=== PATIENT | male | born 1945 | race Hispanic/Latino ===

== ENCOUNTER 2016-05-04 15:48 | Inpatient (IN) | payer MEDICARE, MEDICAID ==
--- NOTE | 2016-05-04 16:03 | ED PDOC ---
Arrival/HPI - General Time Seen by Provider: 05/04/16 15:52 - History of Present Illness Narrative History of Present Illness (Text): 05/04/16 16:03 Patient is a 70 y/o M with hx of dm, htn, anemia, chf, cva with residual R sided weakness, presenting from [facility]. Patient reports that he is in the ED for bloodwork. Spoke to PMD Dr. Lin and she reports that patient had labwork showing elevated BUN/creatinine and anemia. Unknown baseline but labs from [facility] show hgb:8.3 with bun 49, and creatinine 2.8. Patient has no complaints Family/Social History Family/Social History: No Known Family HX Allergies/Home Meds Allergies/Adverse Reactions: Allergies No Known Allergies Allergy (Verified 05/04/16 16:18) Review of Systems - Review of Systems Systems not reviewed;Unavailable: Other (limited by slurred speech from cva) Eyes: absent: Vision Changes ENT: absent: Hearing Changes Respiratory: absent: SOB, Cough Cardiovascular: absent: Chest Pain, Palpitations Gastrointestinal: absent: Abdominal Pain, Constipation, Diarrhea, Nausea, Vomiting Genitourinary Male: absent: Dysuria Musculoskeletal: absent: Arthralgias Skin: absent: Rash Neurological: absent: Headache, Dizziness Hemo/Lymphatic: absent: Adenopathy Psychiatric: absent: Anxiety Physical Exam Vital Signs Temp Pulse Resp BP Pulse Ox 05/04/16 17:20 97.5 F L 05/04/16 16:18 71 16 133/76 100 05/04/16 16:14 70 18 133/76 100 Temperature: Afebrile Blood Pressure: Normal Pulse: Regular Respiratory Rate: Normal Appearance: Positive for: Well-Appearing, Non-Toxic, Comfortable, Other ( bedbound at baseline) Pain Distress: None Mental Status: Positive for: Alert and Oriented X 3 - Systems Exam Head: Present: Atraumatic, Normocephalic Pupils: Present: PERRL Extroacular Muscles: Present: EOMI Conjunctiva: Present: Normal Mouth: Present: Moist Mucous Membranes Neck: Present: Normal Range of Motion Respiratory/Chest: Present: Clear to Auscultation, Good Air Exchange. No: Respiratory Distress, Accessory Muscle Use Cardiovascular: Present: Regular Rate and Rhythm, Normal S1, S2. No: Murmurs Abdomen: Present: Other. No: Tenderness, Distention, Rebound, Guarding Back: Present: Normal Inspection Upper Extremity: Present: Other (R sided contracture) Lower Extremity: Present: Other (R sided boot and no movement) Neurological: Present: GCS=15, CN II-XII Intact Medical Decision Making ED Course and Treatment: 05/04/16 16:23 Patient sent from [facility] for abnormal labs. No current complaints. Guaiac negative brown stool. EKG shows NSR at 70bpm with normal intervals and no ST changes. At request from PMD Dr. Lin will get repeat labs and reeval 05/04/16 18:19 Labs resulted and show bun/creatinine of 47/3, more consistent with post-renal dysfunction. K:5.5. Treatment ordered. Paged Dr. Lin for admission for worsening renal failure. Patient voided in the ED and will place catheter for post-void residual and will leave in place if significant retention. Will need admission under Dr. Lin for worsening renal function - Lab Interpretations Lab Results: 05/04/16 17:39 05/04/16 17:39 Lab Results 05/04/16 17:39: WBC 7.6, RBC 2.82 L, Hgb 9.0 L, Hct 26.9 L, MCV 95.4, MCH 31.9, MCHC 33.5, RDW 13.1, Plt Count 146, MPV 9.7, Gran % 74.3 H, Lymph % (Auto) 16.2 L, Frio % (Auto) 7.5 H, Eos % (Auto) 1.7, Baso % (Auto) 0.3, Gran # 5.68, Lymph # 1.2, Frio # 0.6, Eos # 0.1, Baso # 0.02, PT 11.1, INR 1.03, APTT 26.4, Sodium 137, Potassium 5.5 H, Chloride 107, Carbon Dioxide 21, Anion Gap 15, BUN 47 H, Creatinine 3.0 H, Est GFR ( Amer) 25, Est GFR (Non-Af Amer) 21, Random Glucose 190 H, Calcium 8.6, Phosphorus 3.9, Magnesium 2.0, Total Bilirubin 0.3, AST 17, ALT 19, Alkaline Phosphatase 71, Total Protein 6.9, Albumin 3.4, Globulin 3.5, Albumin/Globulin Ratio 1.0 L - Medication Orders Current Medication Orders: Discontinued Medications Calcium Gluconate (Calcium Gluconate Iv) 1,000 mg IVP ONCE ONE Stop: 05/04/16 18:17 Dextrose (Dextrose 50% Inj) 50 ml IVP STAT STA Stop: 05/04/16 18:17 Insulin Human Regular (Humulin R) 8 units IV STAT STA Stop: 05/04/16 18:17 Sodium Bicarbonate (Sodium Bicarbonate (8.4%) 50 Meq Syringe) 50 meq IVP ONCE ONE Stop: 05/04/16 18:18 Disposition/Present on Arrival - Present on Arrival Any Indicators Present on Arrival: No - Disposition Have Diagnosis and Disposition been Completed?: Yes Diagnosis: Renal failure Disposition: HOSPITALIZED Disposition Time: 19:14 Patient Plan: Admission Condition: FAIR
[2016-05-04 16:23] VITALS: BMI 25.0
[2016-05-04 17:47] LABS: ADD MANUAL DIFF? NO
[2016-05-04 17:53] LABS: BASO # 0.02 K/mm3 (0.0-2.0); BASO % 0.3 % (0.0-3.0); EOS # 0.1 (0.0-0.7); EOS % 1.7 % (1.5-5.0); GRAN # 5.68 (1.4-6.5); GRAN % 74.3 % (50.0-68.0); HEMATOCRIT 26.9 % (42.0-52.0); LYMPH # 1.2 (1.2-3.4); LYMPH % 16.2 % (22.0-35.0); MEAN CELL VOLUME 95.4 fL (80.0-105.0); MEAN CORPUSCULAR HEMOGLOBIN 31.9 pg (25.0-35.0); MEAN CORPUSCULAR HGB CONC 33.5 g/dl (31.0-37.0); MEAN PLATELET VOLUME 9.7 fl (7.0-11.0); MONO # 0.6 (0.1-0.6); MONO % 7.5 % (1.0-6.0); PLATELET COUNT 146 10^3/uL (120.0-450.0); RED CELL DISTRIBUTION WIDTH 13.1 % (11.5-14.5); WHITE BLOOD COUNT 7.6 10^3/ul (4.5-11.0)
[2016-05-04 18:02] LABS: BILIRUBIN,TOTAL 0.3 mg/dL (0.2-1.3); CALCIUM 8.6 mg/dL (8.4-10.5); PHOSPHOROUS 3.9 mg/dL (2.5-4.5); POTASSIUM 5.5 mmol/L (3.6-5.0); TOTAL PROTEIN 6.9 g/dL (5.8-8.3)
[2016-05-04 18:09] LABS: INR 1.03 (0.93-1.08); PARTIAL THROMBOPLASTIN TIME 26.4 Seconds (23.7-30.8)
[2016-05-04] MEDS ORDERED: Dextrose 50% SYRINGE Inj (50 ml) IVP STA (18:16)
[2016-05-04] MEDS ORDERED: Insulin Regular 1 UNITS/0.01 ML ML IV STA (18:16)
[2016-05-04] MEDS ORDERED: Sodium Bicarbonate (8.4%) 50 Meq Syringe IVP ONE (18:17)
[2016-05-04 19:14] LABS: URINE BILIRUBIN NEGATIVE (NEGATIVE); URINE BLOOD MODERATE (NEGATIVE); URINE GLUCOSE (UA) NEGATIVE (NEGATIVE); URINE KETONE NEGATIVE (NEGATIVE); URINE LEUKOCYTE ESTERASE LARGE Leu/uL (NEGATIVE); URINE PROTEIN 30 mg/dL (<30 mg/dL); URINE UROBILINOGEN 0.2 E.U./dL (<1 E.U./dL)
[2016-05-04 19:15] LABS: URINE APPEARANCE CLOUDY (CLEAR); URINE COLOR LIGHT YELLOW (YELLOW)
[2016-05-04 19:26] LABS: URINE RBC TNTC /hpf (0-2); URINE WBC TNTC /hpf (0-6)
[2016-05-04 19:27] LABS: URINE BACTERIA MOD (NEG)
[2016-05-04 21:19] LABS: IRON 89 ug/dL (45-180)
[2016-05-04] MEDS: Insulin Reg-LOW-Coverage SC SCH (23:06)
[2016-05-04] MEDS: Non Formulary Medication (Rosuvastatin Calcium [Crestor] 40 MG) PO SCH (23:17)
[2016-05-05] MEDS: Albuterol-Ipratrop 3 mg / 0.5 (3 ml) UD IH SCH ×4 (01:46→20:04)
[2016-05-05 06:21] LABS: HEMATOCRIT 27.7 % (42.0-52.0); MEAN CELL VOLUME 96.9 fL (80.0-105.0); MEAN CORPUSCULAR HEMOGLOBIN 31.5 pg (25.0-35.0); MEAN CORPUSCULAR HGB CONC 32.5 g/dl (31.0-37.0); MEAN PLATELET VOLUME 10.1 fl (7.0-11.0); RED CELL DISTRIBUTION WIDTH 13.4 % (11.5-14.5); WHITE BLOOD COUNT 8.9 10^3/ul (4.5-11.0)
[2016-05-05 06:38] LABS: CALCIUM 9.1 mg/dL (8.4-10.5); POTASSIUM 5.1 mmol/L (3.6-5.0)
[2016-05-05] MEDS ORDERED: Sod Polystyrene Sulf 15 gm/60 ml Oral Susp PO ONE (08:45)
[2016-05-05] MEDS ORDERED: Sodium Chloride 0.45% 1,000 ML IV SCH (08:45)
[2016-05-05] MEDS: Insulin Reg-LOW-Coverage SC SCH ×4 (09:32→21:54)
[2016-05-05] MEDS: Pantoprazole 40 mg EC Tab PO SCH (09:32)
[2016-05-05] MEDS ORDERED: Non Formulary Medication (Esomeprazole Magnesium [Nexium] 20 MG) PO SCH (10:00)
[2016-05-05] MEDS ORDERED: Cyproheptadine 2 mg Tab PO SCH (10:00)
--- NOTE | 2016-05-05 10:10 | CARD ---
APPROVED REPORT EKG Measurement Heart [id number] <Conclusion> Normal sinus rhythm Normal ECG
[2016-05-05 10:38] LABS: T4 7.6 ug/dL (5.5-11.0)
[2016-05-05] MEDS: Sodium Chloride 0.45% 1,000 ML IV SCH ×2 (10:42→20:59)
[2016-05-05 10:52] LABS: PROSTATE SPECIFIC ANTIGEN 8.2 ng/mL (0.00-2.5)
--- NOTE | 2016-05-05 12:33 | US ---
PROCEDURE: Ultrasound of the Kidneys HISTORY: azotemia COMPARISON: None available. TECHNIQUE: Sonogram of the kidneys. FINDINGS: RIGHT KIDNEY: Measures: 10.5 cm. Normal in size, contour and echogenicity. There is moderate hydronephrosis. No stone, solid or cystic mass visualized. LEFT KIDNEY: Measures: 9.6 cm. Normal in size, contour and echogenicity. There are discrete areas of increased echogenicity with after shadowing. No solid mass lesion or hydronephrosis visualized. OTHER FINDINGS: None. IMPRESSION: 1. Moderate right hydronephrosis. 2. Question of left nephrolithiasis.
[2016-05-05 13:04] LABS: FOLATE 9.2 ng/mL
--- NOTE | 2016-05-05 13:18 | CON ---
DATE: 05/05/2016 HISTORY OF PRESENT ILLNESS: This 70-year-old male was examined at his bedside and his case was revie wed with nurse practitioner, Mandy FREDERICK. The patient was sent from the [facility] e for further evaluation of elevated BUN and creatinine and potassium as well as advanced anemia unde r the care of his PMD, Dr. Salima Lin. I am asked to evaluate the patient regarding the above. On questioning the patient at the bedside, he is an extremely poor historian. He has the residual fi ndings of an old left stroke with right arm contracture and right leg weakness. When asking the rai ent about any knowledge of renal failure duration or any of his comorbidities, he cannot offer much i nsight. He states that in his opinion he had his stroke over 20 years ago. He has been a resident o f the [facility] for over 5 years and he states he has had diabetes mellitus for greater minesh n 15 years. REVIEW OF SYSTEMS: When I questioned him on review of systems he was a poor historian. FAMILY HISTORY: Noncontributory. ALLERGIES: He denies any allergies to medication. CUSTODIAL MEDICATIONS: Included Crestor, Compazine, potassium, metoprolol tartrate, Nexium, Peria ctin, and according to the [facility] staff, Victoza. When I questioned the patient regarding his medication he was unaware of any names or frequencies. SOCIAL HISTORY: He stated he was a former smoker, is a current nonsmoker, nondrinker, non-IV drug mi suser. He could not remember if he has had any surgery in the past. FAMILY HISTORY: Not available. 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 EYES: Denied change in visual acuity. EARS: Denied hearing loss. THROAT: Denied swallowing difficulty. NECK: Denied any stiffness. CARDIAC: There is a report of hypertension, congestive heart failure, hyperlipidemia and old stroke as well as history of atherosclerotic heart disease and angina in his past. PULMONARY: Denied hemoptysis. GASTROINTESTINAL: Admitted to GERD. GENITOURINARY: He has an elevated PSA and follows with Dr. Haresh Waters, urology. Also has no kn owledge of renal failure on questioning the patient. ENDOCRINE: Has hyperlipidemia and longstanding diabetes mellitus. VASCULAR: Denied claudication. PSYCHOLOGICAL: It is reported he has bipolar depression. NEUROLOGICAL: Old stroke with dense right hemiplegia. SKIN: No knowledge of ulcers or skin breakdown. 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 PHYSICAL EXAMINATION: VITAL SIGNS: Temperature 98.4, respirations 20, pulse 75, blood pressure 97/52 for which the patient is receiving IV fluids. Monitor shows normal sinus rhythm. Pulse ox was 99% on room air. HEENT: Normocephalic, atraumatic. Eyes show no icterus. Ears clear. Throat not injected. NECK: Supple. HEART: Regular S1, S2. No pathological rubs, murmurs, or gallops. LUNGS: Clear. ABDOMEN: Soft, nontender, no palpable organomegaly, no rebound, no guarding. EXTREMITIES: No clubbing, no cyanosis, no edema. SKIN: Has good turgor. VASCULAR: Legs warm to touch. PSYCHOLOGICAL: Alert, but confused. NEUROLOGIC: Right arm contracted. Right leg marked weakness. LABORATORY DATA: White count 8900, hemoglobin 9, hematocrit 27.7, platelets 154,000. PT/INR 1.03. PTT 26.4. Sodium 141, K 5.1, chloride 108, bicarbonate 23, BUN 46, creatinine 2.9, random blood sug ar was 336, hemoglobin A1c 6.4. PSA is elevated at 8.2. T4 normal at 7.6. TSH elevated 6.06. Urin alysis showed moderate bacteria and positive RBCs and WBCs. EKG showed normal sinus rhythm with nons pecific ST-T wave changes. IMPRESSION: A 70-year-old male with old stroke with right arm contracture, right leg weakness, comor bidities of hyperlipidemia, congestive heart failure, atherosclerotic heart disease, chronic hyperten tabitha, longstanding diabetes mellitus, gastroesophageal reflux disease, elevated PSA, bipolar depressi on. PLAN: At present is to obtain urological consultation regarding microhematuria, elevated PSA. The p atient in the Emergency Room, was noted to be hyperkalemic and was treated with Kayexalate, IV calciu m, IV insulin and the patient does not appear to be a good candidate for RODY inhibitors given this fi nding. He was also given sodium bicarbonate in the ER. At present, the patient is receiving 0.45 sa line at 100 mL per hour because of his recent hypotension and his metoprolol tartrate will be discont inued in the setting of hypotension. I have ordered a renal ultrasound and serologies including C3, C4 CRP, hepatitis C. He is ordered to have a 24-hour urine for creatinine clearance, 24-hour urine f or protein. He will also have an SAMMI, ANCA, ASO antibody titer, cryoglobulins, DNA double stranded antibodies, anti-GBM antibodies and a serum and urine immunoelectrophoresis. Urine culture has been sent as well. RPR is pending. The patient will need to be treated supportively. The patient would best be served with insulin for his diabetic management including Levemir and insulin coverage a.c. m eals, bedtime. I would avoid the use of any oral hypoglycemics or noninsulin agents in the setting o f chronic renal failure stage IV, and patient's overall prognosis remains poor, but stable at present . Once the patient's creatinine clearance reaches approximately 15%, he may need to be considered fo r AV fistula or graft for chronic renal dialysis, if this is his desire. His overall prognosis is po or, but stable at present. This case was reviewed in detail with the patient at his bedside and his case investigator and nurse practitioner. Cindy Be MD cc: [id number] TT: 05/05/2016 13:17:20 Confirmation # [id number] Dictation # [id number] smith
--- NOTE | 2016-05-05 19:24 | CON ---
DATE: 05/05/2016 REFERRING PHYSICIAN: Dr. Lin. REASON FOR CONSULT: History of stroke, snoring, daytime sleepy and tired, admitted with renal failur e. HISTORY OF PRESENT ILLNESS: This is a 70-year-old gentleman with past medical history significant fo r stroke, diabetes, hypertension, usually poor p.o. intake, brought in from long term because of a bnormal labs and found to have acute kidney disease. He does know about snoring but daytime sleepy a nd tired. There is no nausea, no vomiting, no diarrhea, no leg pain or leg swelling. PAST MEDICAL HISTORY: Diabetes, hypertension, history of stroke, oropharyngeal dysphagia, on modifie d diet. ALLERGIES: None known. SOCIAL HISTORY: [facility] resident. No history of smoking or alcohol abuse reported. FAMILY HISTORY: No significant cardiopulmonary disease reported. MEDICATIONS: At present, he is on DuoNeb q. 6 hours, heparin 5000 units subQ q. 12 hours, insulin coverage, Periactin 4 mg daily. Protonix 40 mg daily, Crestor 40 mg daily, IV fluid half normal sali ne 100 mL per hour, Tylenol p.r.n. basis. REVIEW OF SYSTEMS: No headache, no rhinitis. Admits to be sleepy and tired, multiple night awakenin gs. There is no cough, no sputum production, no nausea, no vomiting, no diarrhea, no leg pain or leg swelling. PHYSICAL EXAMINATION: GENERAL: Lying in the bed in no acute distress. VITAL SIGNS: Temp is 98, heart rate is 71, respiratory rate is 20, blood pressure 102/62, pulse ox 9 9% on room air. HEENT: Dry mucous membranes. Crowded airway. Mallampati score is 4. NECK: Supple. No JVD. LUNGS: Has a fair airflow with scattered rhonchi, poor effort. HEART: S1, S2. ABDOMEN: Soft, nontender. No organomegaly. EXTREMITIES: There is no edema. NEUROLOGIC: Awake, alert, and follows simple commands. LABORATORY DATA: Shows hemoglobin 9.0, hematocrit 27.7, WBC 8.9, platelet is 154. INR 1.03, PTT is 26. PSA 8.2. Ferritin 337. Sodium 141, potassium 5.1, chloride 108, bicarbonate 23, BUN 46, creati nine is 2.9, glucose 101, calcium is 9.1, iron is 89. Urine culture has gram-positive cocci. IMPRESSION AND PLAN: Acute renal failure, history of stroke, hypertension, oropharyngeal dysphagia, may have a sleep apnea syndrome, has memory loss. Agree with Dr. Lin and Dr. Talbot with the pre sent management. Will keep head elevated at 45 degree. Bronchodilator, aspiration precautions, spee ch therapy evaluation to adjust p.o. diet. He will need attended sleep study as outpatient. We will place him on BiPAP ____ oxygen while sleeping in the hospital. Follow up labs in the morning. The patient is already on gastric and deep venous thrombosis prophylaxis. Thank you and will follo w with you. Adrienne Vallejo MD cc: [id number] TT: 05/05/2016 19:23:49 Confirmation # [id number] Dictation # [id number] smith
[2016-05-05] MEDS: Non Formulary Medication (Rosuvastatin Calcium [Crestor] 40 MG) PO SCH (21:31)
[2016-05-06] MEDS: Albuterol-Ipratrop 3 mg / 0.5 (3 ml) UD IH SCH ×4 (01:15→21:05)
--- NOTE | 2016-05-06 04:36 | HP ---
CHIEF COMPLAINT: Abnormal labs. HISTORY OF PRESENT ILLNESS: The patient is a 70-year-old male, resident of [facility] with past medical history of hypertension, congestive heart failure, CVA with residual right-sided partial weak ness, came from Emergency Room because of abnormal blood workup, was feeling a little bit weak, tired , lethargic, not on his baseline mental level. Hemoglobin was 8.3, BUN 49, creatinine 2.8. We admit alexis the patient, did labs. The patient has history of COPD, obesity. FAMILY HISTORY: Father and mother noncontributory. ALLERGIES: The patient is not allergic with any medications. PAST MEDICAL HISTORY: As above, diabetes mellitus, hypertension, anemia, congestive heart failure, C VA, obesity. MEDICATIONS: Reviewed by me. REVIEW OF SYSTEMS: The patient is seen and examined on the bedside. Looks comfortable. No nausea, vomiting, or diarrhea. No hematuria or hematochezia. No swelling of the leg. No chest pain, no pal pitation, no headache, no dizziness. PHYSICAL EXAMINATION: VITAL SIGNS: Temperature 97.6, pulse is 71, blood pressure 102/62, respiratory rate 18. HEENT: Head normocephalic, atraumatic. Eyes: PERRLA. Extraocular muscles intact. Conjunctivae pi nk. Eyelids unremarkable. Nose patent. NECK: Supple. No carotid bruit, JVD or thyromegaly. CHEST: Bilaterally symmetrical. HEART: S1, S2 positive. LUNGS: Clear to auscultation. ABDOMEN: Soft. Bowel sounds present. No organomegaly. EXTREMITIES: Trace edema, no cyanosis. NEUROLOGIC: The patient is awake and alert. LABORATORY DATA: White blood cells 8.9, hemoglobin 9.0, hematocrit 27.7, platelets 154. Glucose 156 , 184, 336, 127. ASSESSMENT AND PLAN: The patient is a 70-year-old male with anemia, diabetes mellitus, hyperkalemia, renal insufficiency, increased PSA, hypothyroidism, chronic obstructive pulmonary disease, obstructi ve sleep apnea syndrome. The patient is seen by Dr. Cindy Be, personnel scheduler, and manager produce, Dr. Vallejo, history of hypertension, history of stroke, oropharyngeal dysphagia on modified diet, ac [place] renal failure on chronic, has memory problem. Keep head elevated. Bronchodilators, aspiration p recautions and speech therapy. We will give oxygen, follow up labs. We will call urologist because of hematuria and increased PSA, right arm contractures, right leg weakness, atherosclerotic heart dis ease, gastroesophageal reflux disease, bipolar, depression. Reviewed Dr. Be's notes, appreciated. We will follow up. Salima Lin MD cc: [id number] TT: 05/06/2016 04:35:07 hn
[2016-05-06] MEDS: Sodium Chloride 0.45% 1,000 ML IV SCH (06:05)
[2016-05-06] MEDS: Insulin Reg-LOW-Coverage SC SCH ×4 (08:00→22:53)
[2016-05-06 09:32] LABS: ALB/GLOB RATIO 0.8 (1.1-1.8); ALKALINE PHOSPHATASE 59 U/L (38-133); ALT/SGPT 15 U/L (7-56); AST/SGOT 13 U/L (15-59); BILIRUBIN,TOTAL 0.3 mg/dL (0.2-1.3); BLOOD UREA NITROGEN 44 mg/dL (7-21); CALCIUM 7.7 mg/dL (8.4-10.5); CARBON DIOXIDE 19 mmol/L (21-33); CHLORIDE 104 mmol/L (98-107); GFR AFRICAN-AMERICAN 27; GLUCOSE,RANDOM 96 mg/dL (70-110); POTASSIUM 3.6 mmol/L (3.6-5.0); SODIUM 130 mmol/L (132-148); TOTAL PROTEIN 5.8 g/dL (5.8-8.3)
[2016-05-06] MEDS: Pantoprazole 40 mg EC Tab PO SCH (09:36)
[2016-05-06] MEDS: Sodium Chloride 0.9% 1,000 ML IV SCH (11:30)
--- NOTE | 2016-05-06 14:10 | PN ---
DATE: 05/06/2016 This 70-year-old male was examined at his bedside and his case was reviewed with his nurse, Lilian Mccray RN. The patient remains hospitalized in the setting of acute on chronic renal failure and most notably his renal ultrasound that was completed yesterday shows moderate hydronephrosis of his right kidney and questionable left nephrolithiasis. No solid mass lesions were visualized. I have asked the nurse to notify Dr. Haresh Waters from urology of this finding and also his microhematuria on urinalysis and an elevated PSA value of 8.2. The patient is lying in bed. He is alert. He is a very poor historian and he denies any chest pain, shortness of breath or diarrhea at present. His appetite appears good and he has eaten all the food on his plate. His ekg monitor tech shows a normal sinus rhythm with no reports of cardiac arrhythmia. PHYSICAL EXAMINATION: VITAL SIGNS: Temperature 97.7, respirations 20, pulse 78, blood pressure 109/ 61 with a pulse ox of 100%. I's and O's 2390 mL in, 800 mL out for a positive fluid balance of 1590. HEAD: Normocephalic, atraumatic. EYES: Show no icterus. EARS: Clear. THROAT: Noninjected. NECK: Supple. HEART: Regular S1, S2. LUNGS: Clear to auscultation. ABDOMEN: Obese, nontender, without palpable organomegaly, no rebound, no guarding. EXTREMITIES: No clubbing, no cyanosis, no edema. SKIN: Without rash. NEUROLOGICAL: Right arm contracture, right leg weakness. VASCULAR: Legs warm to touch. PSYCHOLOGICAL: Alert. Poor mentation, poor recall. LABORATORY DATA: Sodium 130, K 3.6, chloride 104, bicarb 19, BUN 44, creatinine 2.8, random blood sugar 243, bilirubin 0.3, AST 13, ALT 15, alk jori 59. PSA 8.2. T4 7.6, normal. Iron 89, TIBC 228, percent saturation 39, ferritin 337. Urinalysis 30 mg/dL of protein, positive bacteria. Urine culture , beta hemolytic strep group B. IMPRESSION: A 70-year-old male with acute on chronic renal failure, now with stage IV chronic renal failure with anemia of chronic disease, history of old stroke, right hemiplegia, right arm contracture, chronic hypertension, chronic obstructive pulmonary disease, atherosclerotic heart disease, hyperlipidemia, recent hypotension, elevated PSA, insulin-dependent diabetes mellitus, renal ultrasound findings as listed above and recent hyperkalemia. PLAN: At present is to continue medication including Crestor, DuoNeb nebulizers , subQ heparin, insulin coverage, Protonix. IV fluids have been adjusted to 0.9 saline at 70 mL per hour given his recent hyponatremia. He continues on BiPAP at bedtime, renal diabetic diet. I's and O's. Egan catheter. I have asked the nurse to call Dr. Haresh Waters for further instructions regarding his abnormalities including right hydronephrosis, microhematuria and elevated PSA. Additional serologies including complement, CRP hepatitis C, 24-hour urine for creatinine clearance and protein as well as ANCA, ASO, DNA, anti-GBM, serum and urine immunofixation, and SAMMI and cryoglobulins are all pending. The patient will have repeat electrolytes in the morning and ultimate plan is for him to return to the [facility] for his penitentiary care. All of the above was reviewed with the patient and his nurse at his bedside. Overall prognosis is poor, but stable at present. The patient is awaiting an infectious disease consultation with Dr. Jb Sheldon from infectious disease regarding his urine C and S findings. Cindy Be MD cc: [id number] TT: 05/06/2016 14:10:09 Confirmation # [id number] Dictation # [id number] MTDD
--- NOTE | 2016-05-06 17:32 | CP.PCM.CON ---
History of Present Illness - History of Present Illness History of Present Illness: Infectious Disease Consultation: May 06, 2016 70 yo male brought in from [facility] ) for elevated potassium, creatinine, and anemia. The patient is awake and alert. In addition, the patient has had large fluctuations in his weight. Currently 160 lbs and was as high as 182 lbs in the nursing facility as of February 2016. The patient makes no significant complaints. I do not have baseline laboratory values on the patient from a more recent time. In August 2014 , the patient best creatinine was 1.9 in [facility] but quickly gillian back to a creatinine of 3-4 shortly afterwards. He was placed on hospice at the time. I believe that the renal insufficiency is chronic. PMHx: CAD, PVD, hypercholesterolemia, GERDs, obesity, DM , recent large weight loss episodes, Gout, Bipolar Disorder, Iron Deficiency Anemia PSHx: CABG 2 vessels, angioplasty Allergies: Chicken, IV Dye, Iodine, Milk, seafood, shellfish Social Hx: No EtOH or illicit drugs. Former tobacco use stopped 30 years ago Active Medications Acetaminophen (Tylenol 325mg Tab) 650 mg PO Q4 [facility] Last Admin: 05/06/16 11:37 Dose: Not Given Albuterol/Ipratropium (Duoneb 3 Mg/0.5 Mg (3 Ml) Ud) 3 ml IH [id number] [facility] Last Admin: 05/06/16 13:07 Dose: 3 ml Cyproheptadine HCl (Periactin) 4 mg PO DAILY [facility] Last Admin: 05/06/16 09:35 Dose: 4 mg Heparin Sodium (Porcine) (Heparin) 5,000 units SC Q12 [facility] PRN Reason: Protocol Last Admin: 05/06/16 09:35 Dose: 5,000 units Sodium Chloride (Sodium Chloride 0.9%) 1,000 mls @ 70 mls/hr IV .[id number] [facility] Last Admin: 05/06/16 11:30 Dose: 70 mls/hr Insulin Human Regular (Humulin R Low) 0 units SC ACHS [facility] PRN Reason: Protocol Last Admin: 05/06/16 11:36 Dose: 2 units Non-Formulary Medication (Rosuvastatin Calcium [Crestor]) 40 mg PO HS [facility] Last Admin: 05/05/16 21:31 Dose: Not Given Pantoprazole Sodium (Protonix Ec Tab) 40 mg PO ACB [facility] Last Admin: 05/06/16 09:36 Dose: 40 mg Family Hx: DM and CAD in father - at 54 yo CAD in mother - at 62 yo ROS: No fevers, chills, nausea, vomiting, diarrhea, headaches, dizziness, chest pain , abdominal pain, melena, hematuria, hematemesis, hematochezia, depression, anxiety, cough, SOB Past Patient History - Past Social History Smoking Status: Never Smoked - CARDIAC Hx Angina: Yes Hx Congestive Heart Failure: Yes - NEUROLOGICAL HX Cerebrovascular Accident: Yes - RENAL Hx Renal Failure: Yes - ENDOCRINE/METABOLIC Hx Diabetes Mellitus Type 2: Yes - HEMATOLOGICAL/ONCOLOGICAL Hx Anemia: Yes - MUSCULOSKELETAL/RHEUMATOLOGICAL Hx Falls: Yes - GASTROINTESTINAL Hx Gastroesophageal Reflux: Yes - PSYCHIATRIC Hx Bipolar Disorder: Yes Hx Depression: Yes - SURGICAL HISTORY Hx Surgeries: No - ANESTHESIA Hx Anesthesia: No Meds Allergies/Adverse Reactions: Allergies Allergy/AdvReac Type Severity Reaction Status Date / Time milk Allergy VOMITING Verified 05/04/16 20:19 Poultry Allergy VOMITING Verified 05/04/16 20:19 shellfish derived Allergy VOMITING Verified 05/04/16 20:19 - Medications Medications: Current Medications Acetaminophen (Tylenol 325mg Tab) 650 mg PO Q4 [facility] Last Admin: 05/06/16 11:37 Dose: Not Given Albuterol/Ipratropium (Duoneb 3 Mg/0.5 Mg (3 Ml) Ud) 3 ml IH [id number] [facility] Last Admin: 05/06/16 13:07 Dose: 3 ml Cyproheptadine HCl (Periactin) 4 mg PO DAILY [facility] Last Admin: 05/06/16 09:35 Dose: 4 mg Heparin Sodium (Porcine) (Heparin) 5,000 units SC Q12 [facility] PRN Reason: Protocol Last Admin: 05/06/16 09:35 Dose: 5,000 units Sodium Chloride (Sodium Chloride 0.9%) 1,000 mls @ 70 mls/hr IV .[id number] [facility] Last Admin: 05/06/16 11:30 Dose: 70 mls/hr Insulin Human Regular (Humulin R Low) 0 units SC ACHS [facility] PRN Reason: Protocol Last Admin: 05/06/16 11:36 Dose: 2 units Non-Formulary Medication (Rosuvastatin Calcium [Crestor]) 40 mg PO HS [facility] Last Admin: 05/05/16 21:31 Dose: Not Given Pantoprazole Sodium (Protonix Ec Tab) 40 mg PO ACB [facility] Last Admin: 05/06/16 09:36 Dose: 40 mg Physical Exam - Constitutional Appears: Non-toxic, No Acute Distress, Chronically Ill - Head Exam Head Exam: ATRAUMATIC, NORMOCEPHALIC - Eye Exam Eye Exam: EOMI, PERRL Pupil Exam: NORMAL ACCOMODATION, PERRL - ENT Exam ENT Exam: Mucous Membranes Moist, Normal External Ear Exam, TM's Normal Bilaterally - Neck Exam Neck exam: Positive for: Full Rom, Normal Inspection - Respiratory Exam Respiratory Exam: Clear to Auscultation Bilateral, NORMAL BREATHING PATTERN. absent: Rales, Rhonchi, Wheezes - Cardiovascular Exam Cardiovascular Exam: REGULAR RHYTHM, RRR, +S1, +S2 - GI/Abdominal Exam GI & Abdominal Exam: Normal Bowel Sounds, Soft. absent: Distended, Tenderness - Extremities Exam Extremities exam: Positive for: full ROM, normal inspection - Neurological Exam Neurological exam: Alert, CN II-XII Intact, Oriented x3 - Psychiatric Exam Psychiatric exam: Normal Affect, Normal Mood - Skin Skin Exam: Intact, Normal Color Results - Vital Signs Recent Vital Signs: Last Vital Signs Temp 97.7 F 05/06/16 11:56 Pulse 76 05/06/16 14:00 Resp 20 05/06/16 11:56 BP 109/61 05/06/16 11:56 Pulse Ox 100 05/06/16 06:00 - Labs Result Diagrams: 05/05/16 05:00 05/06/16 08:00 Labs: Laboratory Results - last 24 hr 05/05/16 05/05/16 05/06/16 07:00 21:35 07:18 Sodium Potassium Chloride Carbon Dioxide Anion Gap BUN Creatinine Est GFR ( Amer) Est GFR (Non-Af Amer) POC Glucose (mg/dL) 166 H 147 H Random Glucose Calcium Ferritin 337.0 Total Bilirubin AST ALT Alkaline Phosphatase Total Protein Albumin Globulin Albumin/Globulin Ratio RPR 05/06/16 05/06/16 05/06/16 08:00 09:30 11:22 Sodium 130 L Potassium 3.6 Chloride 104 Carbon Dioxide 19 L Anion Gap 11 BUN 44 H Creatinine 2.8 H Est GFR ( Amer) 27 Est GFR (Non-Af Amer) 23 POC Glucose (mg/dL) 243 H Random Glucose 96 Calcium 7.7 L Ferritin Total Bilirubin 0.3 AST 13 L ALT 15 Alkaline Phosphatase 59 Total Protein 5.8 Albumin 2.6 L Globulin 3.1 Albumin/Globulin Ratio 0.8 L RPR Nonreactive 05/06/16 16:27 Sodium Potassium Chloride Carbon Dioxide Anion Gap BUN Creatinine Est GFR ( Amer) Est GFR (Non-Af Amer) POC Glucose (mg/dL) 189 H Random Glucose Calcium Ferritin Total Bilirubin AST ALT Alkaline Phosphatase Total Protein Albumin Globulin Albumin/Globulin Ratio RPR Assessment & Plan - Assessment and Plan (Free Text) Assessment: 70 yo male with worsening renal failure unknown baseline. The patient with signs of a potential UTI based on urinalysis. The patient with likely history of chronic renal failure. Will start Rocephin for now. Awaiting cultures to return. Supportive care. Renal workup in progress. May need malignancy workup given the large fluctuations in patient's weight over the past 3 months (possible loss of 22 + lbs in this time). Thank you for allowing me to participate in the care of this patient, we will follow with you.
[2016-05-06] MEDS: cefTRIAXone 1 gm 100 ML IVPB SCH (17:59)
--- NOTE | 2016-05-06 19:18 | PN ---
DATE: 05/06/2016 REFERRING PHYSICIAN: Dr. Lin. SUBJECTIVELY: The patient is lying in the bed, head at 45 degrees. Sleepy, arousable. Night was un remarkable. Tolerated CPAP well. No cough, no sputum production, no nausea, no vomiting, diarrhea, leg pain or leg swelling. OBJECTIVELY: No acute distress. Temp is 98, heart rate is 73, respiratory rate is 20, blood pressure 126/69, pulse ox 100% on BiPAP. HENT: Small oral cavity. Crowded airway. NECK: Supple. No JVD. LUNGS: Has a fair airflow with few rhonchi. HEART: S1 and S2. ABDOMEN: Soft, nontender. No organomegaly. EXTREMITIES: There is no edema. NEUROLOGICALLY: Sleepy, arousable. Follows simple commands. MEDICATIONS: He is on DuoNeb q. 6 hours, heparin 5000 units subQ q. 12, Levaquin, insulin coverage, Periactin 4 mg daily. Protonix 40 mg daily, Rocephin 1 g daily, Crestor 40 mg at bedtime, IV fluid n ormal saline 75 mL/hour, Tylenol p.r.n. basis. LABORATORY DATA: Shows sodium 130, potassium 3.6, chloride 104, bicarbonate 19, BUN 44, creatinine 2 .8, glucose 96, calcium 7.7. AST 13, ALT 15, alk phos is 59. C-reactive protein is over 15, albumin is 2.6. Urine culture has beta hemolytic strep B. IMPRESSION AND PLAN: Acute renal failure, history of stroke, hypertension, oropharyngeal dysphagia o n modified diet, with sleep apnea syndrome. Will continue bronchodilator. Keep head at 45 degrees. Continue BiPAP while sleeping, IV fluids, as piration precaution. Gastric prophylaxis. DVT prophylaxis. Follow up electrolytes. Adrienne Vallejo MD cc: [id number] TT: 05/06/2016 19:17:51 Confirmation # [id number] Dictation # [id number]
--- NOTE | 2016-05-06 22:10 | PN ---
DATE: 05/06/2016 SUBJECTIVE: The patient is seen and examined on the bedside. Looks comfortable. No big change in the status. No fever, no chills. No nausea, vomiting, or diarrhea. No hematuria or hematochezia. No swelling of the leg. No chest pain, palpitation, headache or dizziness. PHYSICAL EXAMINATION: VITAL SIGNS: Temperature 97.8, pulse 73, blood pressure 120/80 , respiratory rate 20. HEENT: Head normocephalic, atraumatic. Eyes: PERRLA. Extraocular muscles are intact. Conjunctivae are clear. Nose patent. Mucous membranes moist. NECK: Supple. No carotid bruit, JVD or thyromegaly. CHEST: Bilaterally symmetrical. HEART: S1, S2 positive. LUNGS: Clear to auscultation. ABDOMEN: Soft. Bowel sounds present. No organomegaly. EXTREMITIES: No edema, no cyanosis. NEUROLOGIC: The patient is awake, alert, moving all 4 extremities. No focal deficit. MEDICATIONS: Reviewed by me. LABORATORY DATA: White blood cells 8.9, hemoglobin noted , hematocrit 27.7, platelets 154. Sodium 130, potassium 3.6, BUN 24, creatinine 2.8, glucose 189, calcium 7.7. ASSESSMENT AND PLAN: The patient is a 70-year-old male with anemia, hyponatremia, renal insufficiency, hyperglycemia, hypocalcemia, proteinuria, hematuria with leukocytosis. The patient is seen by Dr. Sheldon, infectious disease , has history of coronary artery disease, peripheral vascular disease, hypercholesterolemia, gastroesophageal reflux disease, obesity, diabetes mellitus, recent large weight loss, episode of gout, bipolar disorder, iron deficiency anemia. The patient has renal failure, unknown baseline. The patient with signs of potential urinary tract infection based on urinalysis, getting Rocephin. Waiting for culture results, supportive care. Gastrointestinal and deep venous thrombosis prophylaxis. Repeat labs. The patient is seen by Dr. Sheldon and Dr. Be. Salima Lin MD cc: [id number] TT: 05/06/2016 22:10:14 Confirmation # [id number] Dictation # [id number] MTDD
[2016-05-06] MEDS: Non Formulary Medication (Rosuvastatin Calcium [Crestor] 40 MG) PO SCH (22:55)
[2016-05-07] MEDS: Albuterol-Ipratrop 3 mg / 0.5 (3 ml) UD IH SCH ×4 (02:17→20:40)
[2016-05-07] MEDS: Sodium Chloride 0.9% 1,000 ML IV SCH ×2 (03:22→17:08)
[2016-05-07 07:49] LABS: ALB/GLOB RATIO 0.9 (1.1-1.8); BILIRUBIN,TOTAL 0.3 mg/dL (0.2-1.3); CALCIUM 8.2 mg/dL (8.4-10.5); TOTAL PROTEIN 6.1 g/dL (5.8-8.3)
[2016-05-07] MEDS: Insulin Reg-LOW-Coverage SC SCH ×4 (08:30→21:54)
[2016-05-07] MEDS: cefTRIAXone 1 gm 100 ML IVPB SCH (09:43)
[2016-05-07] MEDS: Pantoprazole 40 mg EC Tab PO SCH (09:43)
--- NOTE | 2016-05-07 10:41 | PCM.URO ---
Urology Progress Note - Objective Lab Results Last 24 Hours: Laboratory Results - last 24 hr 05/06/16 05/06/16 05/06/16 09:30 11:22 16:27 Sodium Potassium Chloride Carbon Dioxide Anion Gap BUN Creatinine Est GFR ( Amer) Est GFR (Non-Af Amer) POC Glucose (mg/dL) 243 H 189 H Random Glucose Calcium Total Bilirubin AST ALT Alkaline Phosphatase C-React Prot High Sens > 15.00 H Total Protein Albumin Globulin Albumin/Globulin Ratio Urine Collection Time Urine Total Volume Creatinine Clearance Complement C3 103.0 Complement C4 24.6 RPR Nonreactive 05/06/16 05/06/16 05/07/16 21:58 22:45 07:33 Sodium 138 Potassium 4.0 Chloride 111 H Carbon Dioxide 19 L Anion Gap 12 BUN 42 H Creatinine 3.2 H 2.7 H Est GFR ( Amer) 28 Est GFR (Non-Af Amer) 24 POC Glucose (mg/dL) 175 H Random Glucose 122 H Calcium 8.2 L Total Bilirubin 0.3 AST 16 ALT 14 Alkaline Phosphatase 60 C-React Prot High Sens Total Protein 6.1 Albumin 3.0 Globulin 3.1 Albumin/Globulin Ratio 0.9 L Urine Collection Time 24 Urine Total Volume 2400 H Creatinine Clearance 14.0 L Complement C3 Complement C4 RPR 05/07/16 07:37 Sodium Potassium Chloride Carbon Dioxide Anion Gap BUN Creatinine Est GFR ( Amer) Est GFR (Non-Af Amer) POC Glucose (mg/dL) 150 H Random Glucose Calcium Total Bilirubin AST ALT Alkaline Phosphatase C-React Prot High Sens Total Protein Albumin Globulin Albumin/Globulin Ratio Urine Collection Time Urine Total Volume Creatinine Clearance Complement C3 Complement C4 RPR Intake & Output: Intake & Output 05/06/16 05/07/16 05/07/16 18:59 06:59 18:59 Intake Total 960 0 Output Total 700 700 Balance 260 -700 Intake: Oral 960 0 Output: Urine 700 700 Urine, Voided 700 700 Other: Voiding Method Urinal # Bowel Movements 0 Vital Signs: Vital Signs - 24 hr 05/06/16 05/06/16 05/06/16 11:56 14:00 17:29 Temperature 97.7 F 97.8 F Pulse Rate 78 76 73 Respiratory 20 20 Rate Blood Pressure 109/61 126/69 O2 Sat by Pulse Oximetry 05/06/16 05/07/16 05/07/16 18:00 00:01 00:15 Temperature 98.9 F Pulse Rate 72 81 72 Respiratory 19 Rate Blood Pressure 118/69 O2 Sat by Pulse 99 Oximetry 05/07/16 05/07/16 05/07/16 02:00 02:18 05:33 Temperature Pulse Rate 64 72 68 Respiratory Rate Blood Pressure O2 Sat by Pulse Oximetry 05/07/16 06:00 Temperature 97.6 F Pulse Rate 73 Respiratory 20 Rate Blood Pressure 130/73 O2 Sat by Pulse 100 Oximetry
[2016-05-07] MEDS ORDERED: Sodium Chloride 0.9% 1,000 ML IV SCH (11:43)
--- NOTE | 2016-05-07 14:14 | PN ---
DATE: 05/07/2016 This 70-year-old male was examined at his bedside and his case was reviewed with his nurse, Lilian Mccray. The patient remains weak and deconditioned. He is receiving IV saline with improvement in his serum sodium. His cardiac catheterization technician shows a normal sinus rhythm with no episodes of ventricular tachycardia and his I's and O's have been 960 in with 700 mL out to date. PHYSICAL EXAMINATION: VITAL SIGNS: Temperature 97.6, respirations 20, pulse 73, blood pressure 130/ 73 with a pulse ox of 100% on room air. HEAD: Normocephalic, atraumatic. EYES: No icterus. EARS: Clear. THROAT: Noninjected. NECK: Supple. HEART: Regular S1, S2. No pathological rubs, murmurs, or gallops. LUNGS: Clear to auscultation. ABDOMEN: Soft, nontender, no palpable organomegaly. EXTREMITIES: No clubbing, no cyanosis, no edema. He is wearing SCD compression stockings. GENITOURINARY: He has a Egan draining clear yellow urine. SKIN: Without rash. NEUROLOGIC: He has chronic right arm contracture, right hemiplegia of the leg. VASCULAR: Legs warm to touch. PSYCHOLOGICAL: Alert. LABORATORIES: White count 8900, hemoglobin 9, hematocrit 27.7, platelets 154, 000. Sodium 138, K 4.0, chloride 111, bicarbonate 19, BUN 42, creatinine 2.7, random blood sugar 189. Liver function testing is normal including bilirubin 0.3, AST 16, ALT 14, alkaline phosphatase 60. T4 normal 7.6. Prostate specific antigen elevated at 8.2. Creatinine clearance estimated at 14 mL per minute. Stool for occult blood negative. Complement C3, C4 normal. RPR nonreactive. Renal ultrasound showed right hydronephrosis, questionable left-sided nephrolithiasis. IMPRESSION: A 70-year-old male with multiple medical problems including acute on chronic renal failure, now stage III-IV, with atherosclerotic heart disease, history of myocardial infarction, congestive heart failure, chronic hypertension , chronic obstructive pulmonary disease, insulin-dependent diabetes mellitus, anemia of chronic disease, urinary tract infection, recent hypotension, recent hyponatremia, corrected, now with elevated PSA, right hydronephrosis, questionable left-sided nephrolithiasis. PLAN: At present is to continue renal heart healthy diet, Crestor, DuoNeb nebulizers, subcutaneous heparin, insulin coverage protocol before meals and at bedtime, Protonix, IV Rocephin under the direction of Dr. Jb Sheldon from infectious disease. His 0.9 saline will be decreased to 40 mL per hour. He has a consultation pending with Dr. Haresh Waters from urology regarding hydronephrosis, elevated PSA and need of biopsy as well as microhematuria that needs to be further evaluated with cysto retrograms. His serologies including cryoglobulin, SAMMI, serum immuno and urine immunoelectrophoresis as well as anti- GBM antibodies, DNA double stranded antibodies, ASO titers and ANCA remain pending. His hepatitis C panels are pending. His 24-hour urine for protein is pending. He is not a candidate for any RODY inhibitors, having been admitted with hyperkalemia and with hydronephrosis and patient's overall prognosis remains guarded. The patient will need to have evaluations regarding probable obstructive sleep apnea, renal failure, rule out prostate cancer, rule out bladder cancer given microhematuria and he will continue on IV antibiotics for his beta hemolytic group B strep infection and has a consultation pending with Dr. Talbot from oncology. All of this was discussed with the patient and his nurse at the bedside. His overall prognosis remains poor, but stable at present. He has been a hospice patient in the past. Cindy Be MD cc: [id number] TT: 05/07/2016 14:13:43 Confirmation # [id number] Dictation # [id number] MTDD
--- NOTE | 2016-05-07 16:47 | PN ---
DATE: 05/07/2016 REFERRING PHYSICIAN: Dr. Lin SUBJECTIVE: The patient is lying in the bed, head at 45 degrees. Night was unremarkable. Tolerated BiPAP well. No headache, no rhinitis, no nausea, no vomiting, n diarrhea. No leg pain or leg swell ing. OBJECTIVE: GENERAL: No acute distress. VITAL SIGNS: Temperature is 98, heart rate is 81, respiratory rate is 20, blood pressure 130/73, pul se ox 100% on room air. HEENT: Moist mucous membranes. Crowded airway. Mallampati score is 4. NECK: Supple. No JVD. LUNGS: Has a fair airflow with few rhonchi. HEART: S1 and S2. ABDOMEN: Soft, nontender. No organomegaly. EXTREMITIES: There is no edema. NEUROLOGIC: Awake, alert, follows simple command. MEDICATIONS: He is on DuoNeb q. 6 hours, heparin 5000 units subQ q. 12 hours, insulin coverage, Eli actin is 4 mg daily, Protonix 40 mg daily, Rocephin 1 gram daily, Crestor is 40 mg at bedtime, IV flu id normal saline 40 mL per hour, Tylenol p.r.n. basis. LABORATORY DATA: Shows sodium 138, potassium 4.0, chloride 111, bicarbonate 19, BUN 42, creatinine 2 .7, glucose 122, calcium is 8.2, AST 16, ALT 14, alkaline phosphatase is 60. IMPRESSION AND PLAN: Acute renal failure, history of stroke, hypertension, oropharyngeal dysphagia, modified diet, sleep apnea syndrome. Pulmonary point of view, doing okay. Keep head elevated at 45 degrees. Continue BiPAP while sleeping. Gastric prophylaxis, deep venous thrombosis prophylaxis, IV fluids. Follow up electrolytes. Thank you and we will follow with you. Adrienne Vallejo MD cc: [id number] TT: 05/07/2016 16:47:14 Confirmation # [id number] Dictation # [id number]
--- NOTE | 2016-05-07 17:06 | CP.PCM.PN ---
Subjective - Date & Time of Evaluation Date of Evaluation: 05/07/16 Time of Evaluation: 15:15 - Subjective Subjective: Infectious Disease Follow Up: May 07, 2016 70 yo male brought in from [facility] ) for elevated potassium, creatinine, and anemia. The patient is awake and alert. In addition, the patient has had large fluctuations in his weight. Currently 160 lbs and was as high as 182 lbs in the nursing facility as of February 2016. The patient makes no significant complaints. I do not have baseline laboratory values on the patient from a more recent time. In August 2014 , the patient best creatinine was 1.9 in [facility] but quickly gillian back to a creatinine of 3-4 shortly afterwards. He was placed on hospice at the time. I believe that the renal insufficiency is chronic. Group B strep in the urine cultures. Objective - Vital Signs/Intake and Output Vital Signs (last 24 hours): Temp Pulse Resp BP Pulse Ox 97.6 F 71 20 130/73 100 05/07/16 06:00 05/07/16 14:00 05/07/16 06:00 05/07/16 06:00 05/07/16 06:00 Intake and Output: 05/07/16 05/07/16 06:59 18:59 Intake Total 0 Output Total 700 Balance -700 - Medications Medications: Current Medications Acetaminophen (Tylenol 325mg Tab) 650 mg PO Q4 [facility] Last Admin: 05/07/16 16:34 Dose: Not Given Albuterol/Ipratropium (Duoneb 3 Mg/0.5 Mg (3 Ml) Ud) 3 ml IH [id number] [facility] Last Admin: 05/07/16 13:34 Dose: 3 ml Cyproheptadine HCl (Periactin) 4 mg PO DAILY [facility] Last Admin: 05/07/16 09:43 Dose: 4 mg Heparin Sodium (Porcine) (Heparin) 5,000 units SC Q12 [facility] PRN Reason: Protocol Last Admin: 05/07/16 09:43 Dose: 5,000 units Ceftriaxone Sodium (Rocephin 1 Gram Ivpb) 100 mls @ 100 mls/hr IVPB DAILY [facility] PRN Reason: Protocol Last Admin: 05/07/16 09:43 Dose: 100 mls/hr Sodium Chloride (Sodium Chloride 0.9%) 1,000 mls @ 70 mls/hr IV .[id number] [facility] Insulin Human Regular (Humulin R Low) 0 units SC ACHS [facility] PRN Reason: Protocol Last Admin: 05/07/16 12:13 Dose: 1 units Non-Formulary Medication (Rosuvastatin Calcium [Crestor]) 40 mg PO HS [facility] Last Admin: 05/06/16 22:55 Dose: Not Given Pantoprazole Sodium (Protonix Ec Tab) 40 mg PO ACB [facility] Last Admin: 05/07/16 09:43 Dose: 40 mg - Labs Labs: 05/05/16 05:00 05/07/16 07:33 PT 11.1 Seconds (9.9-11.8) 05/04/16 17:39 INR 1.03 (0.93-1.08) 05/04/16 17:39 APTT 26.4 Seconds (23.7-30.8) 05/04/16 17:39 - Constitutional Appears: Non-toxic, No Acute Distress, Chronically Ill - Head Exam Head Exam: ATRAUMATIC, NORMOCEPHALIC - Eye Exam Eye Exam: EOMI, PERRL Pupil Exam: NORMAL ACCOMODATION, PERRL - ENT Exam ENT Exam: Mucous Membranes Moist, Normal External Ear Exam, TM's Normal Bilaterally - Neck Exam Neck Exam: Full ROM, Normal Inspection - Respiratory Exam Respiratory Exam: Clear to Ausculation Bilateral, NORMAL BREATHING PATTERN. absent: Rales, Rhonchi, Wheezes - Cardiovascular Exam Cardiovascular Exam: REGULAR RHYTHM, RRR, +S1, +S2 - GI/Abdominal Exam GI & Abdominal Exam: Soft, Normal Bowel Sounds. absent: Distended, Tenderness - Extremities Exam Extremities Exam: Full ROM, Normal Inspection - Neurological Exam Neurological Exam: Alert, Awake, CN II-XII Intact, Oriented x3 - Psychiatric Exam Psychiatric exam: Normal Affect, Normal Mood - Skin Skin Exam: Intact, Normal Color Assessment and Plan - Assessment and Plan (Free Text) Assessment: 70 yo male with worsening renal failure unknown baseline. The patient with signs of a potential UTI based on urinalysis. The patient with likely history of chronic renal failure. Will start Rocephin for now. Awaiting cultures to return. Supportive care. Renal workup in progress. May need malignancy workup given the large fluctuations in patient's weight over the past 3 months (possible loss of 22 + lbs in this time). Cultures showing Group B strep in urine cultures. Rocephin will be adequate therapy to treat this. Patient for urology procedure tomorrow. Cleared for procedure from ID perspective as long as antibiotic continued before and after procedure. Thank you for allowing me to participate in the care of this patient, we will follow with you.
--- NOTE | 2016-05-07 18:56 | PN ---
DATE: 05/07/2016 The patient is a 70-year-old male. The patient seen and examined on the bedside, looks better. No c hange in the status. Tolerated BiPAP very well. No headache. No rhinitis. No nausea, vomiting, di arrhea. No hematuria, no hematochezia. No swelling of the legs. No fever, no chills. PHYSICAL EXAMINATION: VITAL SIGNS: Temperature 98, heart rate 81, respiratory rate 20, blood pressure 130/73, pulse oximet ry 100%. HEENT: Head normocephalic, atraumatic. Eyes: PERRLA. Extraocular muscles intact. Conjunctivae pi nk. Eyelids unremarkable. Nose patent. Mucous membranes moist. NECK: Supple. No carotid bruit, no JVD, no thyromegaly. CHEST: Clear to auscultation. HEART: S1, S2 positive. ABDOMEN: Soft, nontender. No organomegaly. EXTREMITIES: No edema, no cyanosis. NEUROLOGIC: The patient is awake, alert, follows simple commands. MEDICATIONS: DuoNeb, heparin, Protonix, Rocephin, Crestor, IV fluid, Tylenol. LABORATORIES: Sodium 138, potassium 4.0, BUN 42, creatinine 2.7, glucose 122, AST 16, ALT 14. ASSESSMENT AND PLAN: The patient is a 70-year-old male with acute renal failure, history of stroke, hypertension, oropharyngeal dysphagia, obesity, is on modified diet, sleep apnea syndrome. Getting B iPAP. Keep head elevated at [address] Vallejo. Gastric prophylaxis, deep vein thrombosis prophyl axis. Urologist is on the case. The patient is going for cystoscopy tomorrow. Seen by Dr. Sheldon and Siobhan Be. Now, according to Dr. Be, patient has stage III or IV acute on chronic renal f ailure with atherosclerotic heart disease, history of myocardial infarction, congestive heart failure , insulin-dependent of diabetes mellitus, anemia of chronic disease, urinary tract infection, getting antibiotics, recent hypotension, history of hyponatremia, corrected, elevated PSA, right hydronephro sis, questionable left-sided nephrolithiasis. Investigator Claims is on the case. We will continue Crestor , DuoNeb, heparin coverage, insulin coverage, Protonix. Normal saline was decreased to 40 mL per pablo r. The patient needs biopsy of the prostate as well as microhematuria. That will be further evaluat ed by cysto retrogram and patient is going for cystography tomorrow. Serology is pending. Called Dr Claude Talbot as consult for cancer workup. Discussion done with the patient and nursing staff. We will follow up. Salima Lin MD cc: [id number] TT: 05/07/2016 18:56:13 Confirmation # [id number] Dictation # [id number] en
[2016-05-07] MEDS: Non Formulary Medication (Rosuvastatin Calcium [Crestor] 40 MG) PO SCH (23:23)
[2016-05-08] MEDS: Albuterol-Ipratrop 3 mg / 0.5 (3 ml) UD IH SCH ×4 (02:45→19:48)
[2016-05-08] MEDS: Insulin Reg-LOW-Coverage SC SCH ×4 (08:04→22:46)
[2016-05-08] MEDS: Pantoprazole 40 mg EC Tab PO SCH (08:06)
[2016-05-08 08:26] LABS: CALCIUM 8.8 mg/dL (8.4-10.5); POTASSIUM 3.8 mmol/L (3.6-5.0)
--- NOTE | 2016-05-08 09:13 | PN ---
DATE: 05/07/2016 Please see the previously dictated consult from 05/05. I had a chance to speak with Dr. Be and I also to speak to the patient further. After discussing various options, the patient is currently sitting in his bed. He is receiving an ox ygen breathing treatment. We discussed options. See the plan listed below. The patient would like to have further diagnostic studies. Because of his limitations and his usp and all this, we are going to plan for in the [facility]. See below. PAST MEDICAL AND SURGICAL HISTORY: No other changes. REVIEW OF SYSTEMS: Listed above. PHYSICAL EXAMINATION: No change. DIAGNOSES: 1. Elevated PSA. 2. Hydronephrosis, particularly on the right, maybe even the left and there may even be a stone on t he left. 3. Voiding dysfunction. PLAN: We are going to plan for a cystoscopy, retrograde and a stent insertion. We are also going to plan for a prostate biopsy and then further plans will follow, the timing, etc., and we will try to do as fast and rapidly as possible while the patient is here. Most likely, we will start tomorrow, , and then we will make subsequently plans for 05/09, as quickly as possible. Haresh Waters MD cc: [id number] TT: 05/08/2016 09:13:06 Confirmation # [id number] Dictation # [id number] en
[2016-05-08] MEDS: cefTRIAXone 1 gm 100 ML IVPB SCH (09:17)
--- NOTE | 2016-05-08 10:33 | CON ---
DATE: 05/05/2016 REASON FOR CONSULTATION: Elevated PSA, urinary retention, hydronephrosis, multiple medical issues. HISTORY OF PRESENT ILLNESS: The patient is very pleasant 70-year-old gentleman who I had initially s merissa in the office. Although, today he is looking much better than initially. He is currently in [facility] and urology is consulted for the above listed reasons. He has an elevated PSA. He has some hydronephrosis noted and urology is consulted. I had a chance to speak to Dr. Be in this regard. See the plans listed below. We are going to plan for further diagnostic study. PAST MEDICAL AND SURGICAL HISTORY, AND REVIEW OF SYSTEMS: Listed above, noncontributory. PHYSICAL EXAMINATION: GENERAL: Well-nourished male in no apparent distress. VITAL SIGNS: Noted. DIAGNOSES: 1. Elevated prostate specific antigen. 2. Hydronephrosis. 3. Voiding dysfunction. PLAN: Will discuss options for inpatient versus outpatient workup. Will discuss the timing for such workup, and discuss all the plans. The patient may require a prostate ultrasound and biopsy. The p atient may require cystoscopy, retrograde possibly, then stent insertion. The patient may require Fo anna catheter. Multiple options will be discussed further with the patient depending on his clinical plans. Will discuss this with Dr. Lin and Dr. Be. Haresh Waters MD cc: [id number] TT: 05/08/2016 10:32:51 Confirmation # [id number] Dictation # [id number] stephanie
--- NOTE | 2016-05-08 12:25 | PN ---
DATE: 05/08/2016 This 70-year-old male was examined at his bedside. His case was reviewed with his nurse, Zahira Driver. The patient received his IV antibiotics this morning. There have been no reports of fever or chills. The patient remains alert and has had a discussion with Dr. Haresh Waters from urology regarding his needed workup regarding right hydronephrosis, possible left nephrolithiasis and elevated PSA and microhematuria. The patient will be scheduled for cystoscopy, retrogrades and possible stent placement. This has been discussed with Dr. Jb Sheldon from infectious disease, who feels the patient is satisfactory at this point in time for the above intervention. PHYSICAL EXAMINATION: VITAL SIGNS: His alarm security or surveillance monitor shows normal sinus rhythm. Temperature 98.3, respirations 19, pulse 60, blood pressure 148/70 with a pulse ox of 100% on room air. HEAD: Normocephalic, atraumatic. EYES: No icterus. NECK: Supple. HEART: Regular S1, S2. No pathological rubs, murmurs, or gallops. LUNGS: Clear. ABDOMEN: Soft, no palpable organomegaly, no rebound, no guarding. EXTREMITIES: No clubbing, no cyanosis, no edema. He is wearing SCD, anti- embolism sequential compression stockings. VASCULAR: Legs warm to touch. PSYCHOLOGICAL: Alert. NEUROLOGIC: Chronic right arm contracture and right leg hemiplegia. SKIN: Without rash. LABORATORIES: White count 8900, hemoglobin 9, hematocrit 27.7, platelets 154, 000. PT/INR 1.03, PTT 26.4. Sodium 140, K 3.8, chloride 111, bicarbonate 18, BUN 39, creatinine 2.6, random blood sugar 124, calcium normal at 8.8, creatinine clearance 14 mL per minute. Stool for occult blood negative. Complement normal. RPR nonreactive. Hepatitis C antibody negative. IMPRESSION: A 70-year-old male with multiple medical problems including chronic renal failure stage IV, atherosclerotic heart disease, hyperlipidemia, history of hypertension, chronic obstructive pulmonary disease, rule out obstructive sleep apnea, insulin-dependent diabetes mellitus, anemia of chronic disease and now with right hydronephrosis, urinary tract infection, old stroke with right arm contracture and right hemiplegia, history of peptic ulcer disease with gastroesophageal reflux disease. PLAN: At present is to continue Crestor 40 mg at bedtime, DuoNeb nebulizers q. 6, regular low dose insulin coverage before meals and at bedtime, Protonix 40 mg p.o. daily, Rocephin 1 gram IV q. 24. We can stop his IV fluids since the patient is eating and drinking adequately, and his renal workup is in progress. He continues on renal diabetic heart healthy diet, serial labs and he is being followed by hematology/oncology, infectious disease, urology, pulmonary and his PMD, Dr. Salima Lin. Case was reviewed with his nurse in detail, Dr. Sheldon and Dr. Toro, urology. I agree with heme/oncology evaulation. Cindy Be MD cc: [id number] TT: 05/08/2016 12:25:17 Confirmation # [id number] Dictation # [id number] en MTDD
[2016-05-08] MEDS ORDERED: Iohexol 240 (50 ml) ONE (16:28)
[2016-05-08] MEDS ORDERED: Propofol 10 mg/ml Inj (20 ML) ONE (16:35)
[2016-05-08] MEDS ORDERED: Iodixanol 320 mg/ml 50 ml Sol IV ONE (16:40)
--- NOTE | 2016-05-08 17:20 | CP.PCM.PN ---
Subjective - Date & Time of Evaluation Date of Evaluation: 05/08/16 Time of Evaluation: 16:30 - Subjective Subjective: Infectious Disease Follow Up: May 08, 2016 70 yo male brought in from [facility] ) for elevated potassium, creatinine, and anemia. The patient is awake and alert. In addition, the patient has had large fluctuations in his weight. Currently 160 lbs and was as high as 182 lbs in the nursing facility as of February 2016. The patient makes no significant complaints. I do not have baseline laboratory values on the patient from a more recent time. In August 2014 , the patient best creatinine was 1.9 in [facility] [facility] but quickly gillian back to a creatinine of 3-4 shortly afterwards. He was placed on hospice at the time. I believe that the renal insufficiency is chronic. Group B strep in the urine cultures. No blood cultures available. Objective - Vital Signs/Intake and Output Vital Signs (last 24 hours): Temp Pulse Resp BP Pulse Ox 97.7 F 81 12 129/68 99 05/08/16 16:05 05/08/16 16:05 05/08/16 16:05 05/08/16 16:05 05/08/16 16:05 Intake and Output: 05/08/16 05/08/16 06:59 18:59 Intake Total 840 Balance 840 - Medications Medications: Current Medications Acetaminophen (Tylenol 325mg Tab) [address] [facility] Last Admin: 05/08/16 16:26 Dose: Not Given Albuterol/Ipratropium (Duoneb 3 Mg/0.5 Mg (3 Ml) Ud) [id number] [facility] Last Admin: 05/08/16 13:06 Dose: 3 ml Cyproheptadine HCl (Periactin) [address] [facility] Last Admin: 05/08/16 09:18 Dose: 4 mg Ceftriaxone Sodium (Rocephin 1 Gram Ivpb) 100 mls @ 100 mls/hr IVPB DAILY [facility] PRN Reason: Protocol Last Admin: 05/08/16 09:17 Dose: 100 mls/hr Insulin Human Regular (Humulin R Low) 0 units SC ACHS [facility]ILY PRN Reason: Protocol Last Admin: 05/08/16 16:27 Dose: Not Given Non-Formulary Medication (Rosuvastatin Calcium [Crestor]) [address] [facility] Last Admin: 05/07/16 23:23 Dose: Not Given Pantoprazole Sodium (Protonix Ec Tab) 40 mg PO ACB [facility] Last Admin: 05/08/16 08:06 Dose: 40 mg - Labs Labs: 05/05/16 05:00 05/08/16 07:30 PT 11.1 Seconds (9.9-11.8) 05/04/16 17:39 INR 1.03 (0.93-1.08) 05/04/16 17:39 APTT 26.4 Seconds (23.7-30.8) 05/04/16 17:39 - Constitutional Appears: Non-toxic, No Acute Distress, Chronically Ill - Head Exam Head Exam: NORMOCEPHALIC - Eye Exam Eye Exam: EOMI, PERRL Pupil Exam: NORMAL ACCOMODATION, PERRL - ENT Exam ENT Exam: Mucous Membranes Moist, Normal External Ear Exam, TM's Normal Bilaterally - Neck Exam Neck Exam: Full ROM, Normal Inspection - Respiratory Exam Respiratory Exam: Clear to Ausculation Bilateral, NORMAL BREATHING PATTERN. absent: Rales, Rhonchi, Wheezes - Cardiovascular Exam Cardiovascular Exam: REGULAR RHYTHM, RRR, +S1, +S2 - GI/Abdominal Exam GI & Abdominal Exam: Soft, Normal Bowel Sounds. absent: Distended, Tenderness - Extremities Exam Extremities Exam: Normal Inspection Additional comments: bedbound. - Neurological Exam Neurological Exam: Alert, Awake, CN II-XII Intact, Oriented x3 - Psychiatric Exam Psychiatric exam: Normal Affect, Normal Mood - Skin Skin Exam: Intact, Normal Color Assessment and Plan - Assessment and Plan (Free Text) Assessment: 70 yo male with worsening renal failure unknown baseline. The patient with signs of a potential UTI based on urinalysis. The patient with likely history of chronic renal failure. Will start Rocephin for now. Awaiting cultures to return. Supportive care. Renal workup in progress. May need malignancy workup given the large fluctuations in patient's weight over the past 3 months (possible loss of 22 + lbs in this time). Cultures showing Group B strep in urine cultures. Rocephin will be adequate therapy to treat this. Patient for urology procedure today. Cleared for procedure from ID perspective as long as antibiotic continued before and after procedure. Thank you for allowing me to participate in the care of this patient, we will follow with you.
[2016-05-08] MEDS ORDERED: HYDROmorphone 0.5 mg/0.5 ml ISec IVP PRN (17:21)
[2016-05-08] MEDS ORDERED: Lactated Ringer's 1,000 ML IV SCH (17:30)
--- NOTE | 2016-05-08 21:22 | PN ---
DATE: 05/08/2016 REFERRING PHYSICIAN: Dr. Lin. SUBJECTIVE: He is seen in recovery room, just had a cystoscopy done, report is pending, sleepy, arou sable. Postop unremarkable. No cough, no sputum production, no nausea, no vomiting, no diarrhea, no leg swelling reported. OBJECTIVE: GENERAL: No acute distress. VITAL SIGNS: Temperature is 98, heart rate is 95, respiratory rate is 18, blood pressure 148/74, pul se ox 98% on 3 liters nasal cannula. HEENT: Moist mucous membrane. Crowded airway. NECK: Supple. No JVD. LUNGS: Fair airflow with few rhonchi. HEART: S1 and S2. ABDOMEN: Soft, nontender. No organomegaly. Has a Egan catheter. EXTREMITIES: There is no edema. NEUROLOGIC: Sleepy, arousable, follows simple commands. MEDICATIONS: He is on DuoNeb q. 6 hours, insulin coverage, Periactin 4 mg daily, Protonix 40 mg charleen y, Rocephin 1 gram daily, Crestor 40 mg at bedtime, Tylenol on a p.r.n. basis. LABORATORY DATA: Shows sodium 140, potassium 3.8, chloride 111, bicarbonate 18, BUN 39, creatinine 2 .6, glucose 103, calcium is 8.8. Urine culture has beta hemolytic strep B. IMPRESSION AND PLAN: Acute renal failure, history of stroke, hypertension, oropharyngeal dysphagia, on modified diet, sleep apnea syndrome. Had benign prostatic hypertrophy with hydronephrosis. Had a cystoscopy done, report is pending. Pulmonary point of view, doing well. Keep head elevated at 45 degrees. Continue BiPAP use. Gastric prophylaxis, deep venous thrombosis prophylaxis. Antibiotics as per infectious diseases. Follow up labs in the morning. We will follow with you. Adrienne Vallejo MD cc: [id number] TT: 05/08/2016 21:21:30 Confirmation # [id number] Dictation # [id number] arden
[2016-05-08] MEDS: Non Formulary Medication (Rosuvastatin Calcium [Crestor] 40 MG) PO SCH (22:47)
--- NOTE | 2016-05-08 23:10 | PN ---
DATE: 05/08/2016 SUBJECTIVE: The patient seen and examined on the bedside. He looks comfortable. Went for cystoscopy today. Having his dinner. unremarkable. No fever, no chills, no nausea, vomiting, or diarrhea. No headache, no dizziness. No swelling of the legs. PHYSICAL EXAMINATION: VITAL SIGNS: Temperature 98.1, heart rate is 95, respiratory rate 18, blood pressure 140/74, and pulse oximeter 98%. HEENT: Head normocephalic, atraumatic. Eyes: PERRLA. Extraocular movements intact. Conjunctivae pink. Eyelids unremarkable. Nose patent. Mucous membranes moist. NECK: Supple. No carotid bruit, JVD, or thyromegaly. CHEST: Bilaterally symmetrical. HEART: S1, S2 positive. LUNGS: Clear to auscultation. ABDOMEN: Soft. Bowel sounds present. No organomegaly. EXTREMITIES: No edema, no cyanosis. NEUROLOGIC: The patient is awake, alert, moving all 4 extremities. No focal deficit. MEDICATIONS: DuoNeb, insulin coverage, Protonix, Rocephin, Crestor, Tylenol. LABORATORY DATA: Sodium 140, potassium 3.8, BUN 99, creatinine 2.6, glucose 103. Urine culture has beta hemolytic strep B. ASSESSMENT AND PLAN: The patient is a 70-year-old male with acute renal failure , history of stroke, obesity, hypertension, oropharyngeal dysphagia, on modified diet, sleep apnea syndrome, had BPH with hydronephrosis. Had a cystoscopy done. From the Pulmonary point of view, doing better. Continue BiPAP, gastric prophylaxis, and deep vein thrombosis prophylaxis. Antibiotics as per infectious disease. Seen by Dr. Pito YANEZ. It looks like the patient has history of chronic coronary failure, now has [id number] , supportive care. Workup in progress. May need malignancy workup. Last the patient's weight over the past 3 months. Oncology is on the case, seen by Dr. Cindy Be, field interviewer. To continue Crestor, DuoNeb, Protonix, GI and DVT prophylaxis. Repeat labs. We will follow up. Salima Lin MD cc: [id number] TT: 05/08/2016 23:09:43 Confirmation # [id number] Dictation # [id number] ln MTDD
[2016-05-09] MEDS: Sodium Chloride 0.9% 1,000 ML IV SCH (02:33)
[2016-05-09] MEDS: Insulin Reg-LOW-Coverage SC SCH ×4 (07:54→21:53)
[2016-05-09] MEDS: Albuterol-Ipratrop 3 mg / 0.5 (3 ml) UD IH SCH ×3 (08:12→20:24)
[2016-05-09] MEDS: Pantoprazole 40 mg EC Tab PO SCH (08:36)
[2016-05-09 08:47] LABS: CALCIUM 8.4 mg/dL (8.4-10.5); POTASSIUM 3.8 mmol/L (3.6-5.0)
[2016-05-09] MEDS: cefTRIAXone 1 gm 100 ML IVPB SCH (09:36)
[2016-05-09 10:04] LABS: MEAN CELL VOLUME 97.4 fL (80.0-105.0); MEAN CORPUSCULAR HEMOGLOBIN 32.1 pg (25.0-35.0); MEAN CORPUSCULAR HGB CONC 32.9 g/dl (31.0-37.0); MEAN PLATELET VOLUME 10.1 fl (7.0-11.0); RED CELL DISTRIBUTION WIDTH 13.3 % (11.5-14.5); WHITE BLOOD COUNT 5.4 10^3/ul (4.5-11.0)
[2016-05-09 10:17] LABS: HEMATOCRIT 22.8 % (42.0-52.0)
--- NOTE | 2016-05-09 14:07 | RAD ---
PROCEDURE: Fluoroscopy up to 1 hr. HISTORY: RETROGRADE PYELOGRAM / CYSTOGRAM COMPARISON: None TECHNIQUE: Standard protocol for this study/examination. FINDINGS: Total fluoroscopic time (continuous mode) utilized during the procedure: 1 minutes 12 seconds. IMPRESSION: Less than 1 hr fluoroscopic time utilized during performance of the procedure.
--- NOTE | 2016-05-09 14:14 | PN ---
DATE: 05/09/2016 This 70-year-old male was examined at his bedside. I have discussed his case with Dr. Haresh hansen from urology. He underwent a cystoscopy yesterday. Was unable to have a ureteral stent placed bec ause of a tortuous right ureter and this will be reattempted as well as he will be rescheduled for hi s prostate biopsy. The patient was noted to have hematuria during his cystoscopy. No biopsies were obtained and there have been no reports of hemoptysis, hematemesis, or melena. PHYSICAL EXAMINATION: VITAL SIGNS: Temperature 98.4, respirations 20, pulse 62, blood pressure 106/56 with a pulse ox of 9 8%. HEAD: Normocephalic, atraumatic. EYES: No icterus. NECK: Supple. HEART: S1, S2. LUNGS: Clear. ABDOMEN: Soft. EXTREMITIES: No edema. He is wearing sequential compression device stockings. VASCULAR: Legs warm to touch. PSYCHOLOGICAL: Alert. NEUROLOGIC: Chronic right arm contracture and right leg hemiparesis. LABORATORY DATA: Labs today showed white count 5400, hemoglobin 7.5, hematocrit 22.8, platelets 129, 000. PT/INR was 1.03. PTT 26.4. Sodium 139, K 3.8, chloride 112, bicarb 18, BUN 37, creatinine 2.6 . His random blood sugar was 187. A 24-hour urine creatinine clearance 14 mL per minute. A 24-hour protein collection 1.6 grams. Stool for occult blood was negative. Serological workup including AN A, serum immunoelectrophoresis, complement, double-stranded DNA, RPR, hepatitis C antibodies and ASO titers have been negative to date. IMPRESSION: A 70-year-old male with multiple medical problems including chronic renal insufficiency stage IV in the setting of chronic hypertension and diabetes mellitus with a recent renal ultrasound showing right hydronephrosis, questionable left nephrolithiasis, elevated PSA and admission with micr ohematuria, now with drop in hemoglobin/hematocrit. PLAN: At present, continue medications including Crestor, DuoNeb nebulizer, insulin coverage, oral P rotonix, IV Rocephin under the direction of Dr. Sheldon for his group B beta hemolytic strep urinary tract infection. He continues on soft bland diet, BiPAP at bedtime for his obstructive sleep apnea, Egan catheter. He is being readied for a blood transfusion. He is awaiting a hematology/oncology consul t with Dr. Talbot. He will need serial labs. Overall prognosis remains guarded at present. All of the above was reviewed with Dr. Waters, nursing staff, co-consultants. Overall prognosis rem ains poor. Cindy Be MD cc: [phone] TT: 05/09/2016 14:13:27 Confirmation # [id number] Dictation # [id number] sn
--- NOTE | 2016-05-09 17:34 | CP.PCM.PN ---
Subjective - Date & Time of Evaluation Date of Evaluation: 05/09/16 Time of Evaluation: 16:30 - Subjective Subjective: Infectious Disease Follow Up: May 09, 2016 70 yo male brought in from [facility] ) for elevated potassium, creatinine, and anemia. The patient is awake and alert. In addition, the patient has had large fluctuations in his weight. Currently 160 lbs and was as high as 182 lbs in the nursing facility as of February 2016. The patient makes no significant complaints. I do not have baseline laboratory values on the patient from a more recent time. In August 2014 , the patient best creatinine was 1.9 in [facility] but quickly gillian back to a creatinine of 3-4 shortly afterwards. He was placed on hospice at the time. I believe that the renal insufficiency is chronic. Group B strep in the urine cultures. No blood cultures available. Hemoglobin did drop to 7.5 today. No new issues. On IV antibiotics of Ceftriaxone currently. Objective - Vital Signs/Intake and Output Vital Signs (last 24 hours): Temp Pulse Resp BP Pulse Ox 98.4 F 90 18 107/65 98 05/09/16 17:20 05/09/16 17:20 05/09/16 17:20 05/09/16 17:20 05/09/16 08:46 Intake and Output: 05/09/16 05/09/16 06:59 18:59 Intake Total 240 1285 Output Total 200 1100 Balance 40 185 - Medications Medications: Current Medications Acetaminophen (Tylenol 325mg Tab) 650 mg PO Q4 [facility] Last Admin: 05/09/16 16:18 Dose: Not Given Albuterol/Ipratropium (Duoneb 3 Mg/0.5 Mg (3 Ml) Ud) 3 ml IH [id number] [facility] Last Admin: 05/09/16 13:36 Dose: 3 ml Cyproheptadine HCl (Periactin) 4 mg PO DAILY [facility] Last Admin: 05/09/16 09:36 Dose: 4 mg Ceftriaxone Sodium (Rocephin 1 Gram Ivpb) 100 mls @ 100 mls/hr IVPB DAILY [facility] PRN Reason: Protocol Last Admin: 05/09/16 09:36 Dose: 100 mls/hr Insulin Human Regular (Humulin R Low) 0 units SC ACHS [facility] PRN Reason: Protocol Last Admin: 03/21/17 12:18 Dose: 1 units Non-Formulary Medication (Rosuvastatin Calcium [Crestor]) 40 mg PO HS [facility] Last Admin: 05/08/16 22:47 Dose: Not Given Pantoprazole Sodium (Protonix Ec Tab) 40 mg PO ACB [facility] Last Admin: 05/09/16 08:36 Dose: 40 mg - Labs Labs: 05/09/16 10:01 05/09/16 07:00 PT 11.1 Seconds (9.9-11.8) 05/04/16 17:39 INR 1.03 (0.93-1.08) 05/04/16 17:39 APTT 26.4 Seconds (23.7-30.8) 05/04/16 17:39 - Constitutional Appears: Non-toxic, No Acute Distress, Chronically Ill - Head Exam Head Exam: ATRAUMATIC, NORMOCEPHALIC - Eye Exam Eye Exam: EOMI, PERRL Pupil Exam: NORMAL ACCOMODATION, PERRL - ENT Exam ENT Exam: Mucous Membranes Moist, Normal External Ear Exam, TM's Normal Bilaterally - Neck Exam Neck Exam: Full ROM, Normal Inspection - Respiratory Exam Respiratory Exam: Clear to Ausculation Bilateral, NORMAL BREATHING PATTERN. absent: Rales, Rhonchi, Wheezes - Cardiovascular Exam Cardiovascular Exam: REGULAR RHYTHM, RRR, +S1, +S2 - GI/Abdominal Exam GI & Abdominal Exam: Soft, Normal Bowel Sounds. absent: Distended, Tenderness - Extremities Exam Extremities Exam: Normal Inspection Additional comments: bedbound. - Neurological Exam Neurological Exam: Alert, Awake, CN II-XII Intact - Psychiatric Exam Psychiatric exam: Normal Affect, Normal Mood - Skin Skin Exam: Intact, Normal Color Assessment and Plan - Assessment and Plan (Free Text) Assessment: 70 yo male with worsening renal failure unknown baseline. The patient with signs of a potential UTI based on urinalysis. The patient with likely history of chronic renal failure. Will start Rocephin for now. Awaiting cultures to return - these have been negative to date. Supportive care. Renal workup in progress. May need malignancy workup given the large fluctuations in patient's weight over the past 3 months (possible loss of 22 + lbs in this time). Cultures showing Group B strep in urine cultures. Rocephin will be adequate therapy to treat this. Patient underwent cystoscopy yesterday but new stent could not be placed due to torturous path. Continue on Rocephin for now. Thank you for allowing me to participate in the care of this patient, we will follow with you.
[2016-05-09] MEDS: Non Formulary Medication (Rosuvastatin Calcium [Crestor] 40 MG) PO SCH (22:28)
--- NOTE | 2016-05-10 01:12 | CON ---
DATE: 05/09/2016 The patient is in room 272, bed 1. REASON FOR CONSULTATION: This patient is a 70-year-old male [facility] from [facility] with multiple comorbid medical issues, but the reason for consultation was progressive weight loss of more than 30 pounds and to rule out the possibility of an underlying malignancy. The patient has had a history o f stroke, snoring, daytime sleepiness and new onset of renal failure. The patient has a significant history for diabetes and hypertension with poor intake and was brought in from the [facility] of abnormal labs and found to have acute kidney disease. No nausea, no vomiting, no diarrhea, no leg pain or leg swelling. The patient had a cystoscopy done for the progressive renal azotemia, foun d to have prostatic hypertrophy with hydronephrosis. PAST MEDICAL HISTORY: Significant for diabetes, hypertension, history of stroke, oropharyngeal dysph agia on modified diet. ALLERGIES: The patient has no known allergies. SOCIAL HISTORY: The patient is a [facility] resident. No history of smoking or alcohol abuse repo rted. FAMILY HISTORY: Significant for cardiopulmonary disease. MEDICATIONS: Include DuoNeb q.6 hours, heparin 5000 subcutaneous with insulin coverage, Periactin da jerome, Protonix 40 daily, Crestor 40 daily, on IV fluids and Tylenol p.r.n. REVIEW OF SYSTEMS: The patient has no significant headaches. Admits to being sleepy and tired. No cough, no sputum production, no nausea or vomiting, no fevers, no chills. PHYSICAL EXAMINATION: GENERAL: The patient is examined in bed, is in no acute distress. VITAL SIGNS: Stable. T-max is 98.4, heart rate is 71, respirations 20, blood pressure is 102/62, pu lse ox is 99% on room air. HEENT: Head is normocephalic, atraumatic. Examination of the oropharynx reveals dry mucous membrane s. NECK: Supple. There is no adenopathy. No jugular venous distention noted. LUNGS: Reveals to be relatively clear with scattered rhonchi. HEART: Reveals S1 and S2 to be normal. No gallop or murmur is heard. ABDOMEN: Soft, nontender. Liver and spleen not palpable. EXTREMITIES: Reveals no cyanosis, clubbing or edema. NEUROLOGIC: Higher functions are normal on neurologic exam. The patient follows simple commands. LABORATORY DATA: Reviewed. The patient's H and H is 9 and 27; white count of 8.9; platelet count 15 4,000. Coags are normal. PSA is 8.2. Ferritin 337. Electrolytes are normal. Urine is positive fo r gram-positive cocci culture. ASSESSMENT NOTES AND PLAN: Weight loss is probably related to multifactorial comorbid medical issues . The patient currently has acute renal failure and a background history of having had a stroke, hyp ertension, oropharyngeal dysphagia and possible sleep apnea syndrome. Agree with the current managem ent. The patient is on bronchodilators. He is on gastric prophylaxis, and his head is being kept el evated at 45 degrees to prevent recurrent aspiration. The patient's medications were also reviewed, and at this point in time, even though the patient is sick, there is no overt evidence of any m alignancy. We will follow up p.r.n. based on the drop in the hemoglobin or further findings. Thank you for allowing me to participate in the management of this patient. We will watch the H and H to see if the patient will need down the road blood transfusion. Very truly yours, Anuj Talbot MD cc: [id number] TT: 05/10/2016 00:39:47 Confirmation # [id number] Dictation # [id number] mn 05/10/2016 00:10:52
[2016-05-10] MEDS: Albuterol-Ipratrop 3 mg / 0.5 (3 ml) UD IH SCH ×4 (01:20→19:24)
--- NOTE | 2016-05-10 02:05 | PN ---
DATE: 05/09/2016 REFERRING PHYSICIAN: Dr. Lin. SUBJECTIVE: He is lying in the bed, head at 45 degree. Tolerated BiPAP well. No headache, no rhini tis, no cough, no nausea, no vomiting, no diarrhea. Does have hematuria, receiving blood transfusion . OBJECTIVE: GENERAL: No acute distress. VITAL SIGNS: Temperature is 98, heart rate 72, respiratory rate 18, blood pressure 107/62, pulse ox 100% on nasal cannula. HEENT: Moist mucous membranes. Crowded airway. NECK: Supple. No JVD. LUNGS: Has a fair airflow with few rhonchi. HEART: S1, S2. ABDOMEN: Soft, nontender. No organomegaly. EXTREMITIES: There is no edema. NEUROLOGIC: Awake, alert, follows simple command. MEDICATIONS: He is on DuoNeb q. 6 hours, insulin ____, Periactin 4 mg daily, Protonix 40 mg daily, Rocephin 1 gram daily, Crestor 40 mg daily, Tylenol p.r.n. basis. LABORATORY DATA: Hemoglobin 7.5, hematocrit 22.8, WBC 5.4, platelet is 129. Sodium 139, potassium 3 .8, chloride 112, bicarbonate 18, BUN 37, creatinine 2.6, glucose 122, calcium is 8.4. IMPRESSION AND PLAN: Acute renal failure, history of a stroke, hypertension, oropharyngeal dysphagia on modified diet, sleep apnea syndrome, benign prostatic hypertrophy, hydronephrosis, still has some hematuria, need follow of H and H closely. Keep head elevated at 45 degrees and current BiPAP use a t night. Continue bronchodilator. Follow up labs in the morning. We will follow with you. Adrienne Vallejo MD cc: [id number] TT: 05/10/2016 02:05:00 Confirmation # [id number] Dictation # [id number] mn
--- NOTE | 2016-05-10 04:26 | PN ---
DATE: 05/09/2016 SUBJECTIVE: The patient is a 70-year-old male, seen in his room. Was having his dinner, looks comfo rtable. No nausea, vomiting, or diarrhea. No hematuria or hematochezia. No swelling of the leg. N o chest pain, no palpitation, no fever, no chills. PHYSICAL EXAMINATION: VITAL SIGNS: Temperature is 98.4, pulse 52, respiratory rate 20, blood pressure 110/56, with pulse oximetry of 98%. HEENT: Head normocephalic, atraumatic. Eyes: PERRLA, extraocular muscles intact. Conjunctivae pin k. Eyelids unremarkable. Nose patent. NECK: Supple. No carotid bruit, JVD or thyromegaly. CHEST: Bilaterally symmetrical. HEART: S1, S2 positive. LUNGS: Clear to auscultation. ABDOMEN: Soft. Bowel sounds present. No organomegaly. EXTREMITIES: No edema, no cyanosis. However, has sequential compression device stocking. NEUROLOGIC: The patient is awake, alert, and moving all 4 extremities. LABORATORY DATA: White blood cells 5400, hemoglobin 7.5, hematocrit 22.8, platelets 129,000. Sodium 139, potassium 3.8, BUN 34, creatinine 2.6, blood sugar 187, hepatitis C RPR negative. ASSESSMENT AND PLAN: The patient is a 70-year-old male with multiple medical problems. Has acute-on -chronic renal insufficiency, stage IV, in the setting of chronic hypertension, diabetes mellitus, un controlled. Renal ultrasound showing right hydronephrosis, question of left nephrolithiasis, elevate d PSA, hematuria. The patient's hemoglobin dropped. Type and crossmatch 2 units of packed RBC. The patient went for cystoscopy by Gualberto Waters, urologist, yesterday. According to Dr. Waters, he w as unable to put a stent in the ureter because of tortuosity of the right ureter, and he said he will reattempt and reschedule, and he will do a prostate biopsy also. The patient had hematuria even dur ing the cystoscopy. No biopsy was taken. We will continue Crestor for hypercholesterolemia, DuoNeb for breathing, insulin coverage for diabetes control, oral Protonix for GI prophylaxis, getting gross ly seen for UTI, ID with Dr. Sheldon and Dr. Funes. The patient had Group B beta-hemolytic Streptococcus and urinary tract infection. Continue soft bland diet, BiPAP, pain effort of his catheter. Length of time discussion done with Dr. Talbot. According to him, it does not look like the patient has malignancy. Maybe he lost weight because of insufficiency and is different sicknesses, but we w ill continue present treatment. Repeat labs. We will follow up. Salima Lin MD cc: [id number] TT: 05/10/2016 04:25:53 Confirmation # [id number] Dictation # [id number] vn
[2016-05-10 07:39] LABS: ADD MANUAL DIFF? NO
[2016-05-10 07:45] LABS: BASO # 0.01 K/mm3 (0.0-2.0); BASO % 0.2 % (0.0-3.0); EOS # 0.2 (0.0-0.7); EOS % 3.5 % (1.5-5.0); GRAN # 3.04 (1.4-6.5); GRAN % 67.4 % (50.0-68.0); HEMATOCRIT 29.3 % (42.0-52.0); LYMPH # 0.9 (1.2-3.4); MEAN CELL VOLUME 93.6 fL (80.0-105.0); MEAN CORPUSCULAR HGB CONC 33.1 g/dl (31.0-37.0); MEAN PLATELET VOLUME 9.9 fl (7.0-11.0); MONO # 0.4 (0.1-0.6); MONO % 8.9 % (1.0-6.0); PLATELET COUNT 120 10^3/uL (120.0-450.0); RED CELL DISTRIBUTION WIDTH 15.9 % (11.5-14.5); WHITE BLOOD COUNT 4.5 10^3/ul (4.5-11.0)
[2016-05-10] MEDS: Insulin Reg-LOW-Coverage SC SCH ×4 (07:45→22:19)
[2016-05-10] MEDS: Pantoprazole 40 mg EC Tab PO SCH (07:46)
[2016-05-10 08:13] LABS: ALB/GLOB RATIO 0.9 (1.1-1.8); BILIRUBIN,TOTAL 0.5 mg/dL (0.2-1.3); CALCIUM 8.4 mg/dL (8.4-10.5); TOTAL PROTEIN 6.4 g/dL (5.8-8.3)
[2016-05-10] MEDS ORDERED: HYDROmorphone 0.5 mg/0.5 ml ISec IVP PRN (09:31)
[2016-05-10] MEDS ORDERED: Iohexol 240 (50 ml) ONE (11:13)
[2016-05-10] MEDS ORDERED: cefTRIAXone (Rocephin) 1 gm Inj ONE (11:13)
[2016-05-10] MEDS ORDERED: Propofol 10 mg/ml Inj (20 ML) ONE (11:32)
[2016-05-10] MEDS ORDERED: Barium Sulfate Susp 2.1% w/v, 2.0% w/w 450 mL Bottle PO ONE (12:18)
--- NOTE | 2016-05-10 13:39 | PN ---
DATE: 05/10/2016 This 70-year-old male is on schedule today for cystoscopy and retrogrades and possible ureteral stent placement in the setting of hydronephrosis and nephrolithiasis. The patient also has persistent hematuria, is being followed by Dr. Haresh Waters from urology and will ultimately need a prostate biopsy for an elevated PSA as well. The patient was given a blood transfusion in the setting of acute anemia with recent stool for occult blood negative studies in the setting of chronic renal failure as well. PHYSICAL EXAMINATION: VITAL SIGNS: Temperature is 97.7, respirations 18, pulse 71, and blood pressure 123/68 with a pulse ox of 98% on room air. HEAD: Normocephalic, atraumatic. EYES: No icterus. NECK: Supple. HEART: S1, S2. LUNGS: Clear. ABDOMEN: Soft. EXTREMITIES: No edema. SKIN: Without rash. PSYCHOLOGICAL: Alert. VASCULAR: Legs warm to touch. NEUROLOGIC: With chronic right arm contracture and right hemiplegia. LABORATORY DATA: White count 4500, hemoglobin 9.7, hematocrit 29.3, platelets 120,000. Sodium 138, K 4.0, chloride 111, bicarb 17, BUN 26, creatinine 2.6, random blood sugar is 149. All liver function testing was normal including bilirubin 0.5, AST 27, ALT 23 and alk phos 79. Stool for occult blood on 05/07 was negative. Serum immunoelectrophoresis was unremarkable for any monoclonal Protein. His SAMMI is negative. ANCA screen is negative. Anti-GBM titers are negative. Double stranded anti-DNA antibodies are negative. Complements are normal. RPR is nonreactive. Hepatitis C antibody is negative. ASO titers are negative. IMPRESSION: A 70-year-old male with multiple medical problems including right hydronephrosis, hematuria, elevated PSA, questionable left-sided nephrolithiasis , chronic renal failure stage IV in the setting of chronic hypertension and insulin-dependent diabetes mellitus with comorbidities of atherosclerotic heart disease, hyperlipidemia, chronic obstructive pulmonary disease, probable sleep apnea and anemia. PLAN: At present is to continue IV Rocephin for his group B beta hemolytic strep urinary tract infection under the direction of Dr. Sheldon. He continues on Protonix, insulin coverage, DuoNeb nebulizers and Crestor. He will be scheduled for a repeat stool for occult blood, abdominal pelvic CT with oral contrast only as able and a CBC in the a.m. He will need to complete his urological workup. He is being followed by Dr. Talbot from hematology/oncology , Dr. Jb Sheldon from infectious disease; Dr. Vallejo from pulmonary and Dr. Waters from urology as well as his primary care physician, Dr. Salima Lin. All of the above was reviewed with co-consultants nursing staff, Dr. Waters and the patient in detail. Cindy Be MD cc: [phone] TT: 05/10/2016 13:38:57 Confirmation # [id number] Dictation # [id number] tn MTDD
--- NOTE | 2016-05-10 15:22 | PN ---
DATE: 05/10/2016 REFERRING PHYSICIAN: Dr. Lin. SUBJECTIVE: He is lying in the bed, just come back from OR after a ureteral stent placement, has blo pete urine in the Egan catheter. There is no cough, no sputum production, no nausea, no vomiting, no abdominal pain, no leg pain or leg swelling. OBJECTIVE: GENERAL: No acute distress. VITAL SIGNS: Temp is 98, heart rate is 72, respiratory rate is 18, blood pressure 148/75, pulse ox 9 8% on nasal cannula. HEENT: Moist mucous membrane. Crowded airway. NECK: Supple. No JVD. LUNGS: Have a fair airflow with a few rhonchi. HEART: S1, S2. ABDOMEN: Soft, nontender. No organomegaly. The Egan catheter bloody urine. EXTREMITIES: There is no edema. NEUROLOGIC: Awake, alert, follows simple commands. MEDICATIONS: He is on DuoNeb q. 6 hours, insulin coverage, Periactin 4 mg daily, Protonix 40 mg charleen y, Rocephin 1 gram daily, Crestor 40 mg daily, Tylenol is a p.r.n. basis. LABORATORY DATA: Shows hemoglobin 9.7, hematocrit 29.3, WBC 4.5, platelet is 120. Sodium 138, potas sium 4.0, chloride 111, bicarbonate 17, BUN 36, creatinine 2.6, glucose 128, calcium 8.4. AST 27, AL T 23, alk phos is 79, albumin is 6.3. Urine culture has beta hemolytic strep B growth. IMPRESSION AND PLAN: Acute renal failure, has a renal stone with hydronephrosis, history of stroke, hypertension, oropharyngeal dysphagia on modified diet, sleep apnea syndrome, benign prostatic hypert rophy, status post ureteral stent placement, has a Egan catheter with bloody urine. Pulmonary point of view, keep head elevated at 45 degree. Encourage BiPAP use. Gastric prophylaxis. Sequential co mpression devices to lower extremity. Follow up labs in the morning. We will follow with you. Adrienne Vallejo MD cc: [phone] TT: 05/10/2016 15:22:00 Confirmation # [id number] Dictation # [id number] tn
[2016-05-10] MEDS: cefTRIAXone 1 gm 100 ML IVPB SCH (16:26)
--- NOTE | 2016-05-10 18:49 | CON ---
DATE: 05/10/2016 The patient was seen and examined earlier today. The chart was reviewed. REQUEST FOR CONSULT: Anemia. HISTORY OF PRESENT ILLNESS: This is a 70-year-old male who is from [facility]; has history of hy pertension, CVA with residual right-sided weakness. Went to the Emergency Room for abnormal blood wo rk. The patient was also lethargic and weak, and was found to have a hemoglobin 8.3, and elevated BU N/creatinine. The patient had status post transfusion of 2 units of packed RBCs. The patient is rig ht now status post stent this morning, and had bright red blood urine. The patient is awake, alert, has some garbled speech but is able to follow commands. He denies any n ausea, vomiting, or abdominal pain. He does complain of reflux, but depending on dietary intake. Re ports a good appetite but complains of weight loss. He has never had an endoscopy or colonoscopy. PAST MEDICAL HISTORY: CVA with right-sided weakness, congestive heart failure, hypertension, COPD, o besity, diabetes mellitus, anemia. PAST SURGICAL HISTORY: He had a bypass. FAMILY HISTORY: Denies any known cancer, otherwise, noncontributory. MEDICATIONS: Reviewed as per APR. ALLERGIES: No known drug allergies. SOCIAL HISTORY: History of smoking. No history of ETOH, or substance abuse. VITAL SIGNS: Temperature is 97.3, blood pressure is 148/75, pulse 72, respirations 17, and 100% on r oom air. LABORATORIES: WBC is 4.5, H and H is 9.7 and 29.3, platelet is 120. PT was on 05/04/2016; it was 11 .1, INR is 1.02, PTT 26.4. Chemistries: Sodium is 138, K is 4.0, BUN 36, creatinine is 2.6. His to bonnie bilirubin is 0.5, AST 27, ALT 22, alkaline phos is 79. He had iron levels done on 05/04 that was 89, his percent saturation is 39, TIBC is 228; this is low. Ferritin is 337, folate is 9.2. He had stool for occult blood on 05/07 that was negative. He had hep C antibody done that was negative. Renal ultrasound was done on 05/05, and that showed moderate right hydronephrosis and a question of l eft nephrolithiasis. PHYSICAL EXAMINATION: HENT: Sclerae are anicteric. NECK: Supple. CARDIAC: S1, S2. LUNGS: Have decreased breath sounds, but good air entry. ABDOMEN: With bowel sounds, soft, nondistended, nontender on palpation. No rebound, or guarding, or organomegaly. EXTREMITIES: Positive pulses. No edema. NEUROLOGIC: He is awake and alert. Has garbled speech, has right-sided facial droop, and right leg is flaccid, with right arm contracted. ASSESSMENT: This is a 70-year-old male with history of cerebrovascular accident with right-sided wea kness, came in with abnormal labs. He is noted to have anemia. Rule out any bleeding, malignancy. Acute renal failure. He was found to have moderate right-sided hydronephrosis. He is status post cy stoscopy with left pigtail stent; right side attempted. History of diabetes mellitus, and hypertensi on, weight loss. PLAN: He is going to have a CT scan of abdomen and pelvis with oral contrast done today. He is curr ently drinking the contrast. Continue Protonix. He is also being followed by hematology, urology, a nd also by renal. The patient may benefit from GI workup in lieu of anemia and complaints of weight loss, and optimal . Thank you for this consult and for allowing us to participate in your patient's care. Will make furt her recommendation based upon the patient's clinical course. The patient was seen, and case discussed with Dr. Leonardo. ADDENDUM: The patient also with a urinary tract infection-positive beta hemolytic strep. He is on c eftriaxone. Liliana FREDERICK cc: [phone] TT: 05/10/2016 18:48:35 Confirmation # [id number] Dictation # [id number] smith
[2016-05-10] MEDS: Non Formulary Medication (Rosuvastatin Calcium [Crestor] 40 MG) PO SCH (21:00)
--- NOTE | 2016-05-10 21:59 | PN ---
DATE: 05/10/2016 This is patient's hospital visit on the medical floor. For Dr. Talbot. SUBJECTIVE: The patient is a 70-year-old male seen sitting up in bed, status post insertion of pigta il stent by cystoscopy with Dr. Waters today, with the patient otherwise without complaint, resting comfortably in bed. The patient does suffer from hydronephrosis, nephrolithiasis, hematuria and is s tatus post transfusion of 2 units of packed cells with good effect. The patient is a resident of [facility] with right-sided weakness, status post cerebrovascular ac cident; however, he answers questions appropriately. OBJECTIVE: PHYSICAL EXAMINATION: VITAL SIGNS: Temperature 97.9, pulse 71, respirations 24, blood pressure 159/84, pulse ox 100%. HEENT: Unremarkable with dry mucous membranes of the oropharynx. NECK: Supple. HEART: Regular rate. LUNGS: Clear rare rhonchi. ABDOMEN: Soft, nontender. EXTREMITIES: No edema. NEUROLOGIC: He is awake and alert, status post cerebrovascular accident with a boot on the right arcelia e and right-sided contracture of the upper extremity. LABORATORY DATA: The patient's labs were done. White blood cell count of 4.5, hemoglobin 9.7, statu s post transfusion 2 units of packed cells for hemoglobin 7.5 yesterday, hematocrit 29.3, platelet co unt of 120,000. His chem metabolic panel shows a chloride of 111, BUN of 36, creatinine of 2.6, nonf asting glucose 128, otherwise normal chem panel. ASSESSMENT: Includes chronic renal insufficiency, hypertension, diabetes, hydronephrosis, status pos t cystoscopy today, anemia improved. PLAN: The patient is to continue present medical regimen as per Dr. Be and Dr. Waters with patie nt's labs to be monitored clinically. Prognosis for this patient is guarded. Leland Becker MD cc: [phone] TT: 05/10/2016 21:58:50 Confirmation # [id number] Dictation # [id number] arden
--- NOTE | 2016-05-10 22:04 | CP.PCM.PN ---
Subjective - Date & Time of Evaluation Date of Evaluation: 05/10/16 Time of Evaluation: 20:00 - Subjective Subjective: Infectious Disease Follow Up: May 10, 2016 70 yo male brought in from [facility] ) for elevated potassium, creatinine, and anemia. The patient is awake and alert. In addition, the patient has had large fluctuations in his weight. Currently 160 lbs and was as high as 182 lbs in the nursing facility as of February 2016. The patient makes no significant complaints. I do not have baseline laboratory values on the patient from a more recent time. In August 2014 , the patient best creatinine was 1.9 in [facility] but quickly gillian back to a creatinine of 3-4 shortly afterwards. He was placed on hospice at the time. I believe that the renal insufficiency is chronic. Group B strep in the urine cultures. No blood cultures available. Hemoglobin improved to 9.7 today. No new issues. On IV antibiotics of Ceftriaxone currently. Noted that the patient weight is now back up to 206 lbs. Objective - Vital Signs/Intake and Output Vital Signs (last 24 hours): Temp Pulse Resp BP Pulse Ox 97.9 F 71 24 159/84 H 100 05/10/16 16:00 05/10/16 16:00 05/10/16 16:00 05/10/16 16:00 05/10/16 16:00 Intake and Output: 05/10/16 05/11/16 18:59 06:59 Intake Total 0 Output Total 600 Balance -600 - Medications Medications: Current Medications Acetaminophen (Tylenol 325mg Tab) 650 mg PO Q4 [facility] Last Admin: 05/10/16 20:59 Dose: Not Given Albuterol/Ipratropium (Duoneb 3 Mg/0.5 Mg (3 Ml) Ud) 3 ml IH [id number] [facility] Last Admin: 05/10/16 19:24 Dose: 3 ml Cyproheptadine HCl (Periactin) 4 mg PO DAILY [facility] Last Admin: 05/10/16 12:59 Dose: Not Given Ceftriaxone Sodium (Rocephin 1 Gram Ivpb) 100 mls @ 100 mls/hr IVPB DAILY EMILY PRN Reason: Protocol Last Admin: 05/10/16 16:26 Dose: 100 mls/hr Insulin Human Regular (Humulin R Low) 0 units SC ACHS EMILY PRN Reason: Protocol Last Admin: 05/10/16 16:21 Dose: Not Given Non-Formulary Medication (Rosuvastatin Calcium [Crestor]) 40 mg PO HS [facility] Last Admin: 05/10/16 21:00 Dose: Not Given Pantoprazole Sodium (Protonix Ec Tab) 40 mg PO ACB [facility] Last Admin: 05/10/16 07:46 Dose: Not Given - Labs Labs: 05/10/16 07:00 05/10/16 07:15 PT 11.1 Seconds (9.9-11.8) 05/04/16 17:39 INR 1.03 (0.93-1.08) 05/04/16 17:39 APTT 26.4 Seconds (23.7-30.8) 05/04/16 17:39 - Constitutional Appears: Non-toxic, No Acute Distress, Chronically Ill - Head Exam Head Exam: ATRAUMATIC, NORMOCEPHALIC - Eye Exam Eye Exam: EOMI, PERRL Pupil Exam: NORMAL ACCOMODATION, PERRL - ENT Exam ENT Exam: Mucous Membranes Moist, Normal External Ear Exam, TM's Normal Bilaterally - Neck Exam Neck Exam: Full ROM, Normal Inspection - Respiratory Exam Respiratory Exam: Clear to Ausculation Bilateral, NORMAL BREATHING PATTERN. absent: Rales, Rhonchi, Wheezes - Cardiovascular Exam Cardiovascular Exam: REGULAR RHYTHM, RRR, +S1, +S2 - GI/Abdominal Exam GI & Abdominal Exam: Soft, Normal Bowel Sounds. absent: Distended, Tenderness - Extremities Exam Extremities Exam: Normal Inspection Additional comments: bedbound. - Neurological Exam Neurological Exam: Alert, Awake, CN II-XII Intact - Psychiatric Exam Psychiatric exam: Normal Affect, Normal Mood - Skin Skin Exam: Intact, Normal Color Assessment and Plan - Assessment and Plan (Free Text) Assessment: 70 yo male with worsening renal failure unknown baseline. The patient with signs of a potential UTI based on urinalysis. The patient with likely history of chronic renal failure. Will start Rocephin for now. Awaiting cultures to return - these have been negative to date. Supportive care. Renal workup in progress. May need malignancy workup given the large fluctuations in patient's weight over the past 3 months (possible loss of 22 + lbs in this time). Noted that the most recent weight here is now 206 lbs which is closer to his normal weight. Cultures showing Group B strep in urine cultures. Rocephin will be adequate therapy to treat this. Patient underwent cystoscopy yesterday but new stent could not be placed due to torturous path. Continue on Rocephin for now. Thank you for allowing me to participate in the care of this patient, we will follow with you.
--- NOTE | 2016-05-10 23:40 | PN ---
DATE: 05/10/2016 SUBJECTIVE: The patient is a 70-year-old male. The patient is seen and examined at the bedside, hav ing his dinner, came back from OR after ureteral stent placement. Has blood in the urine in the Fole y catheter. No fever, no chills, no nausea, vomiting, or diarrhea. No hematuria or hematochezia. N o fever, no headache, no dizziness. PHYSICAL EXAMINATION: VITAL SIGNS: Temperature 98, heart rate 72, respiratory rate 18, blood pressure 148/75, pulse oximet ry 98% on nasal cannula. HEAD: Normocephalic, atraumatic. EYES: PERRLA, extraocular muscles intact, conjunctivae clear, eyelids unremarkable. Nose: Patent. Mucous membranes: Moist. NECK: Supple. No carotid bruit, JVD, or thyromegaly. LUNGS: Has a fair airflow with a few rhonchi. HEART: S1, S2 positive. ABDOMEN: Soft. No organomegaly. EXTREMITIES: No edema, no cyanosis. NEUROLOGIC: The patient is awake, alert, follows simple commands. MEDICATIONS: DuoNeb, insulin coverage, Periactin, Protonix, Rocephin, Crestor, Tylenol. LABORATORY DATA: Hemoglobin 9.7, hematocrit 29.3, white blood cells 4.5, and platelets 120. Sodium 138, potassium 4, BUN 36, creatinine 2.6. AST 27, ALT 23. Urine culture has beta-hemolytic strep gr oup B growth. ASSESSMENT AND PLAN: The patient is a 70-year-old male with acute renal failure, has renal calculi w ith hydronephrosis, history of stroke, hypertension, oropharyngeal dysphagia on modified diet, obesit y, sleep apnea syndrome, benign prostatic hypertrophy, status post ureteral stent placement by Dr. Brayden pickering, has Egan catheter with blood. Encouraged BiPAP use. Gastric prophylaxis, sequential karen tabitha devices to lower extremity, follow up labs. Was seen by Dr. Sheldon of infectious disease. No blood cultures are available. Slight cessation of the weight over the past 3 months. Asophenic is indica alexis for therapy as per Dr. Sheldon. Continue present treatment. Seen by Dr. Leland Becker. Maybe the patient's weight loss is due to chronic renal insufficiency, [id number]. Prognosis is guarded . We will follow up. Salima Lin MD cc: [id number] TT: 05/10/2016 23:40:11 Confirmation # [id number] Dictation # [id number] vn
[2016-05-11] MEDS: Albuterol-Ipratrop 3 mg / 0.5 (3 ml) UD IH SCH ×5 (01:43→19:01)
[2016-05-11 07:20] LABS: HEMATOCRIT 29.4 % (42.0-52.0); MEAN CELL VOLUME 94.5 fL (80.0-105.0); MEAN CORPUSCULAR HEMOGLOBIN 31.5 pg (25.0-35.0); MEAN CORPUSCULAR HGB CONC 33.3 g/dl (31.0-37.0); MEAN PLATELET VOLUME 10.2 fl (7.0-11.0); RED CELL DISTRIBUTION WIDTH 15.6 % (11.5-14.5); WHITE BLOOD COUNT 4.6 10^3/ul (4.5-11.0)
--- NOTE | 2016-05-11 08:19 | CT ---
PROCEDURE: CT Abdomen and Pelvis without intravenous contrast HISTORY: anemia and weight loss COMPARISON: None. TECHNIQUE: Oral contrast only. . Radiation dose: Total exam DLP = mGy-cm. FINDINGS: LOWER THORAX: Trace pleural effusions. No significant pulmonary abnormalities. All LIVER: Fatty liver, low-attenuation areas in the right hepatic lobe difficult to characterize related to artifact created by upper extremity streaking. Absence of intravenous contrast precludes optimal assessment. Followup advised. GALLBLADDER AND BILE DUCTS: Cholelithiasis without CT evidence of acute cholecystitis. PANCREAS: Unremarkable. No gross lesion or ductal dilatation. SPLEEN: Unremarkable. ADRENALS: Unremarkable. No mass. KIDNEYS AND URETERS: Right hydronephrosis, hydroureter without intrinsic abnormality or extrinsic findings. Recently placed double-J stent catheter identified on the left. Residual distention of the left collecting system, air and contrast from recent instrumentation left ureters and collecting system. VASCULATURE: Unremarkable. No aortic aneurysm. BOWEL: Constipation without fecal impaction or obstruction. Thickening of the wall of the rectum likely related to under distention. APPENDIX: Unremarkable. Normal appendix. PERITONEUM: Unremarkable. No free fluid. No free air. LYMPH NODES: Unremarkable. No enlarged lymph nodes. BLADDER: Indwelling catheter, low bladder volume. Diffuse thickening of the bladder wall without focal abnormality. Findings likely reflect cystitis/inflammatory process ease rather than neoplasm. REPRODUCTIVE: Unremarkable. BONES: Diffuse osteopenia. Loss of height L5 vertebral body. Loss of height L1 vertebral body. Fracture fragments identified. No significant retropulsed fragments apparent on the current study. These are age-indeterminate but likely chronic/osteopenia related. OTHER FINDINGS: None. IMPRESSION: 1. Bilateral hydronephrosis, hydroureter. Status post placement double-J stent catheter on the left. 2. Despite a decompressed bladder, bladder wall thickening is diffuse suggestive of cystitis/ inflammatory process. 3. Indeterminate findings in the liver requiring further evaluation. Ultrasound may help clarify findings particularly in the right hepatic lobe. 4. Cholelithiasis without CT evidence of acute cholecystitis. 5. Diffuse thickening of the wall of the rectum likely related to decompressed state.
[2016-05-11] MEDS: Insulin Reg-LOW-Coverage SC SCH ×3 (09:03→18:47)
[2016-05-11] MEDS: Pantoprazole 40 mg EC Tab PO SCH (09:03)
[2016-05-11] MEDS: cefTRIAXone 1 gm 100 ML IVPB SCH (09:04)
--- NOTE | 2016-05-11 13:41 | PN ---
DATE: 05/11/2016 This 70-year-old male was examined at his bedside. His case was reviewed with Dr. Sheldon from infectious disease as well as Dr. Waters from urology. The patient underwent a left pigtail ureteral stent pl acement yesterday because of hydronephrosis and was also unable to have a right ureteral stent placed because of tortuosity of his right ureter. The right hydronephrosis persists and the patient is rec eiving IV ceftriaxone in the setting of a urinary tract infection. The patient is also with chronic renal failure stage IV. He has multiple comorbidities including chronic obstructive pulmonary diseas e, insulin-dependent diabetes mellitus, peptic ulcer disease, anemia of chronic disease, history of w eight loss, chronic hypertension and is awaiting gastrointestinal [facility]. He still has microhematuria, is still in need of a prostate biopsy for an elevated PS A. PHYSICAL EXAMINATION: VITAL SIGNS: Temperature is 97.8, respirations 22, pulse 61, and blood pressure 142/63 with a pulse ox of 100% on room air. HEAD: Normocephalic, atraumatic. EYES: No icterus. EARS: Clear. THROAT: Noninjected. NECK: Supple. HEART: S1, S2. LUNGS: Clear. ABDOMEN: Soft. EXTREMITIES: No clubbing, no cyanosis, no edema. SKIN: Without rash. NEUROLOGICAL: Unchanged. Chronic right arm contracture, chronic right leg hemiplegia. VASCULAR: Legs warm to touch. LABORATORIES: White count 4600, hemoglobin 9.8, hematocrit 29.4, platelets 112,000. Chemistry: Sod ium 138, K 4.0, chloride 111, bicarbonate 17, BUN 36, creatinine 2.6, estimated GFR 25 mL per minute, blood sugar today 203. Stool for occult blood negative. IMPRESSION: A 70-year-old male with chronic renal failure stage IV, comorbidities of atherosclerotic heart disease, hyperlipidemia, chronic hypertension, chronic obstructive pulmonary disease, obstruct familia sleep apnea, insulin-dependent diabetes mellitus, peptic ulcer disease with gastroesophageal refl ux disease, urinary tract infection with beta-hemolytic Strep group B, right and left hydronephrosis, persistent right hydronephrosis in the absence of a ureteral stent placement, microhematuria, elevat ed PSA, rule out prostate cancer, anemia of chronic disease, old stroke, right arm contracture, right leg hemiplegia, deconditioning. PLAN: To await gastrointestinal evaluation by Dr. Leonardo from GI. He was seen in consultation by Dr. Talbot from oncology, who has no further recommendations regarding possible malignancy workup. I have discussed this case with Dr. Sheldon from infectious disease. He favors a 10-day course of a paren teral antibiotic with IV Rocephin. Dr. Haresh Waters will be pursuing his unresolved issues of rig ht hydronephrosis and elevated PSA levels, which are going to require a prostate biopsy and he contin ues on Crestor, DuoNeb nebulizers, insulin coverage, Protonix, IV Rocephin, BiPAP at bedtime, nasal O 2 p.r.n. and anti-embolism stockings with sequential compression device, mechanical device to prevent deep venous thrombosis. Ultimate plan will be to return this patient to his alf care at the [facility]. His overall prognosis remains poor. Cindy Be MD cc: [phone] TT: 05/11/2016 13:41:10 Confirmation # [id number] Dictation # [id number] en
--- NOTE | 2016-05-11 14:51 | RAD ---
PROCEDURE: Fluoroscopy up to 1 hr. HISTORY: LEFT RETROGRADE/STENT INSERTION COMPARISON: None TECHNIQUE: Standard FINDINGS: Total fluoroscopic time (continuous mode) utilized during the procedure: 3 minutes 48 seconds. IMPRESSION: Less than 1 hr fluoroscopic time utilized 7
[2016-05-11] MEDS ORDERED: Propofol 10 mg/ml Inj (20 ML) ONE (17:23)
[2016-05-11] MEDS ORDERED: Midazolam 2 MG/2 ML VIAL ONE (17:23)
[2016-05-11] MEDS ORDERED: Lactated Ringer's 1,000 ML IV SCH (18:00)
--- NOTE | 2016-05-11 18:34 | CP.PCM.PN ---
Subjective - Date & Time of Evaluation Date of Evaluation: 05/11/16 Time of Evaluation: 16:45 - Subjective Subjective: Infectious Disease Follow Up: May 11, 2016 70 yo male brought in from [facility] ) for elevated potassium, creatinine, and anemia. The patient is awake and alert. In addition, the patient has had large fluctuations in his weight. Currently 160 lbs and was as high as 182 lbs in the nursing facility as of February 2016. The patient makes no significant complaints. I do not have baseline laboratory values on the patient from a more recent time. In August 2014 , the patient best creatinine was 1.9 in [facility] but quickly gillian back to a creatinine of 3-4 shortly afterwards. He was placed on hospice at the time. I believe that the renal insufficiency is chronic. Group B strep in the urine cultures. No blood cultures available. Hemoglobin improved to 9.8 today. No new issues. On IV antibiotics of Ceftriaxone currently. Noted that the patient weight is now back up to 206 lbs. Went for biopsy of the prostate today. Creatinine is 2.6 today. Objective - Vital Signs/Intake and Output Vital Signs (last 24 hours): Temp Pulse Resp BP Pulse Ox 98 F 71 14 108/61 100 05/11/16 18:05 05/11/16 18:05 05/11/16 18:05 05/11/16 18:05 05/11/16 18:05 Intake and Output: 05/11/16 05/11/16 06:59 18:59 Intake Total 380 500 Output Total 1700 400 Balance -1320 100 - Medications Medications: Current Medications Acetaminophen (Tylenol 325mg Tab) 650 mg PO Q4 [facility] Last Admin: 05/11/16 13:38 Dose: Not Given Albuterol/Ipratropium (Duoneb 3 Mg/0.5 Mg (3 Ml) Ud) 3 ml IH [id number] [facility] Last Admin: 05/11/16 13:42 Dose: 3 ml Cyproheptadine HCl (Periactin) 4 mg PO DAILY [facility] Last Admin: 05/11/16 09:03 Dose: 4 mg Ceftriaxone Sodium (Rocephin 1 Gram Ivpb) 100 mls @ 100 mls/hr IVPB DAILY [facility] PRN Reason: Protocol Last Admin: 05/11/16 09:04 Dose: 100 mls/hr Lactated Ringer's (Lactated Ringer's) 1,000 mls @ 75 mls/hr IV .[id number] [facility] Stop: 05/11/16 20:01 Insulin Human Regular (Humulin R Low) 0 units SC ACHS [facility] PRN Reason: Protocol Last Admin: 05/11/16 13:37 Dose: Not Given Non-Formulary Medication (Rosuvastatin Calcium [Crestor]) 40 mg PO HS [facility] Last Admin: 05/10/16 21:00 Dose: Not Given Pantoprazole Sodium (Protonix Ec Tab) 40 mg PO ACB [facility] Last Admin: 05/11/16 09:03 Dose: 40 mg - Labs Labs: 05/11/16 07:00 05/10/16 07:15 PT 11.1 Seconds (9.9-11.8) 05/04/16 17:39 INR 1.03 (0.93-1.08) 05/04/16 17:39 APTT 26.4 Seconds (23.7-30.8) 05/04/16 17:39 - Constitutional Appears: Non-toxic, No Acute Distress, Chronically Ill - Head Exam Head Exam: ATRAUMATIC, NORMOCEPHALIC - Eye Exam Eye Exam: EOMI, PERRL Pupil Exam: NORMAL ACCOMODATION, PERRL - ENT Exam ENT Exam: Mucous Membranes Moist, Normal External Ear Exam, TM's Normal Bilaterally - Neck Exam Neck Exam: Full ROM, Normal Inspection - Respiratory Exam Respiratory Exam: Clear to Ausculation Bilateral, NORMAL BREATHING PATTERN. absent: Rales, Rhonchi, Wheezes - Cardiovascular Exam Cardiovascular Exam: REGULAR RHYTHM, RRR, +S1, +S2 - GI/Abdominal Exam GI & Abdominal Exam: Soft, Normal Bowel Sounds. absent: Distended, Tenderness - Extremities Exam Extremities Exam: Normal Inspection Additional comments: bedbound - Neurological Exam Neurological Exam: Alert, Awake, CN II-XII Intact - Psychiatric Exam Psychiatric exam: Normal Affect, Normal Mood - Skin Skin Exam: Intact, Normal Color Assessment and Plan - Assessment and Plan (Free Text) Assessment: 70 yo male with worsening renal failure unknown baseline. The patient with signs of a potential UTI based on urinalysis. The patient with likely history of chronic renal failure. Will start Rocephin for now. Awaiting cultures to return - these have been negative to date. Supportive care. Renal workup in progress. May need malignancy workup given the large fluctuations in patient's weight over the past 3 months (possible loss of 22 + lbs in this time). Noted that the most recent weight here is now 206 lbs which is closer to his normal weight. Cultures showing Group B strep in urine cultures. Rocephin will be adequate therapy to treat this. Patient underwent cystoscopy yesterday but new stent could not be placed due to torturous path. Continue on Rocephin for now. Patient went for prostatic biopsy today. Thank you for allowing me to participate in the care of this patient, we will follow with you.
[2016-05-11 18:50] VITALS: BP 137/78; PULSE 76; RESP 18; TEMP 98; O2SAT 98
--- NOTE | 2016-05-11 23:20 | PN ---
DATE: 05/11/2016 This is the patient's hospital visit on the medical floor. For Dr. Talbot. SUBJECTIVE: The patient is a 70-year-old male, seen sitting up in bed with his right arm flaccid. S tatus post cystoscopy by Dr. Waters, status post a prostate biopsy. He is known to have significant anemic indices, for which was transfused blood with good effect. Otherwise, he is resting comfortab ly, in no acute distress. He reports he is going home tomorrow. The patient has significant cerebrovascular accident with his right-sided flaccidity as a result. OBJECTIVE: VITAL SIGNS: Temperature 98, pulse 76, respirations 18, blood pressure 137/78, pulse ox 98%. HEENT: Unremarkable. NECK: Supple. HEART: Regular rate. LUNGS: Scattered rhonchi. ABDOMEN: Soft, nontender, obese. EXTREMITIES: No edema. NEUROLOGIC: Flaccidity of the right upper extremity, with right lower extremity with boot. LABORATORY DATA: The patient's labs were done. White blood cell count of 4.6, hemoglobin 9.8, hemat ocrit 29.4, platelet count of 112,000 with a chem metabolic panel within normal limits except for BUN of 36, creatinine of 2.6. ASSESSMENT: Hydronephrosis, nephrolithiasis, anemia, status post transfusion, status post cerebrovas cular accident with right-sided flaccidity, renal failure, hypertension, sleep apnea. PLAN: The patient is to continue as per Dr. Be and consultants with the prognosis for this patien t guarded. Leland Becker MD cc: [phone] TT: 05/11/2016 23:19:26 Confirmation # [id number] Dictation # [id number] ln
--- NOTE | 2016-05-11 23:29 | PN ---
DATE: 05/11/2016 REFERRING PHYSICIAN: Dr. Lin. SUBJECTIVE: He is lying in the bed, head at 45 degrees. Night was unremarkable, tolerated BiPAP wel l. No nausea, vomiting, or diarrhea. No leg swelling, back pain, or leg swelling. OBJECTIVE: GENERAL: No acute distress. VITAL SIGNS: Temp is 98, heart rate 76, respiratory rate is 20, blood pressure 137/78, pulse ox 98% on room air. HEENT: Moist mucous membrane. Crowded airway. NECK: Supple, no JVD. LUNGS: Has a fair airflow with few rhonchi. HEART: S1 and S2. ABDOMEN: Soft and nontender. No organomegaly. EXTREMITIES: There is no edema. NEUROLOGIC: Awake, alert, follows simple commands. MEDICATIONS: Reviewed. No new changes in medication reported since yesterday. LABORATORY DATA: Reviewed. Hemoglobin 9.8, hematocrit 29.4, WBC 4.6, platelet count is 112. 162. IMPRESSION AND PLAN: Acute renal failure with renal stones, with hydronephrosis requiring ureteral s tent, getting prostate biopsy, oropharyngeal dysphagia on modified diet, sleep apnea syndrome, BPH. We will keep head elevated at 45 degrees and . He needs close cardiopulmonary monitoring, avoid sedatives, being followed by nephrology. Sleep apnea precaution. Thank you and we will follow with you. Adrienne Vallejo MD cc: [phone] TT: 05/11/2016 23:28:43 Confirmation # [id number] Dictation # [id number] ln
--- NOTE | 2016-05-16 15:32 | DS ---
Discharged back to [facility] on 05/11/2016. CHIEF COMPLAINT: Fatigued, tired, abnormal labs. HISTORY OF PRESENT ILLNESS: The patient is a 70-year-old male, resident of [facility] with past medical history of hypertension, congestive heart disease, CVA, brought to [facility] Emergency Room due to abnormal blood workup, feeling fatigued and tired. The patient has history of COPD, obesity. We admitted the patient. Called nephrology consult with Dr. Cindy Be, urology with Dr. Haresh Waters. Did abdomen and pelvis CT scan. PSA was high. The patient went for a prostate biopsy, results are pending. The patient was seen by Dr. Talbot for losing weight and it looks like it is not a malignancy, but looks like because of kidney function abnormality and other comorbidities. The patient seen by Dr. Vallejo for COPD, Dr. Sheldon for sepsis. PAST MEDICAL HISTORY: Hypertension, congestive heart failure, CVA, diabetes mellitus, anemia. ALLERGIES: The patient is not allergic with any medications. FAMILY HISTORY: Father and mother noncontributory. HABITS: No smoking, no drugs, no ethanol. REVIEW OF SYSTEMS: The patient was seen and examined on the bedside. Looks comfortable. No nausea, vomiting, or diarrhea. No hematuria or hematochezia. No swelling of the legs. No chest pain, no palpitations. Status post prostate biopsy. Looks better, tolerated the food. No fever, no chills. PHYSICAL EXAMINATION: VITAL SIGNS: Temperature 98, pulse 76, blood pressure 137/78, respiratory rate 18. HEENT: Head normocephalic, atraumatic. Eyes: PERRLA. Extraocular muscles intact. Conjunctivae pink. Eyelids unremarkable. Nose patent. NECK: Supple. No carotid bruits, JVD, or thyromegaly. CHEST: Bilaterally symmetrical. HEART: S1, S2 positive. LUNGS: Clear to auscultation. ABDOMEN: Soft. Bowel sounds present. No organomegaly. EXTREMITIES: No edema, no cyanosis. NEUROLOGIC: The patient is awake, alert and moving all 4 extremities. No focal deficits. LABORATORY DATA: White blood cells 4.6, hemoglobin 9.8, hematocrit 29.4, platelets 112. Glucose 162. Sodium 138, potassium 4.0, BUN 36, creatinine 2.6. Glucose 128. MEDICATIONS: Reviewed by me. ASSESSMENT AND PLAN: The patient is a 70-year-old male who has acute renal failure, chronic renal insufficiency with renal stones, hydronephrosis requiring a ureter stent, got prostate biopsy, is pending, oropharyngeal dysphagia, on modified diet, sleep apnea syndrome, benign prostatic hypertrophy. Inside Steward/Stewardess and tube laser operator is on the case. Seen by oncologist because of losing weight, to search for occult malignancy. According to them, does not look like had melegnency . Looks like the patient 's other comorbidities. Anemia, status post blood transfusion, history of cerebrovascular accident with right-sided flaccidity. Seen by infectious disease, Dr. Sheldon. Urinary tract infection, got Rocephin in the hospital. Renal workup done by Dr. Cindy Be. Malignancy workup was done by the oncologist. Cultures grew group B strep in the urine. Rocephin will be adequate as per Dr. Sheldon. The patient went for cystoscopy and new stent could not be placed due to tortuosity of the pathway, but biopsies done. Sent patient back to [facility] on continuous Rocephin. Dr. Sheldon will see patient in [facility] also and will see Dr. Haresh Waters and Dr. Cindy Be. We will follow up treatment there. Salima Lin MD cc: [phone] TT: 05/16/2016 15:32:04 arden JONES
--- NOTE | 2016-05-19 07:46 | PN ---
DATE: 05/10/2016 UROLOGY POSTOPERATIVE NOTE See the operative report. In the postoperative period, the patient remains stable. He is in the rec overy room. The patient is currently recovering after his procedure. DIAGNOSES: Elevated PSA, urinary retention and renal failure, azotemia, hydronephrosis, elevated pro state-specific antigen. PLAN: Continue to monitor the patient. Procedures as indicated. Once complete, patient will be able to go home with an indwelling Egan catheter. Haresh Waters MD cc: [phone] TT: 05/19/2016 01:56:14 Confirmation # [id number] Dictation # [id number] jn
--- NOTE | 2016-05-19 07:46 | OP ---
PROCEDURE DATE: 05/08/2016 PREOPERATIVE DIAGNOSES: Elevated PSA, urinary retention, anemia, hematuria, renal failure, azotemia and urinary retention and hydronephrosis. POSTOPERATIVE DIAGNOSES: Elevated PSA, urinary retention, anemia, hematuria, renal failure, azotemia and urinary retention and hydronephrosis. PROCEDURE: Cystoscopy, retrograde pyelogram, attempted insertion of a double-J stent, unsuccessfully . COMPLICATIONS: There were none. BLOOD LOSS: Less than 10 mL. See the history and physical and the daily consult notes and my progress note and my consult note. I have been following the patient since upon his admission. I saw the patient on 05/07 and 05/05. Plus I have also seen the patient in my office. He is here now for the above listed procedure. Of significant note, we are unable to insert a double-J stent today in the right side, which was our plan. DESCRIPTION OF PROCEDURE: After obtaining informed consent . I spoke to the patient and also a family member. I called her on the phone. I believe it was his sister. About the risks, benefits, treatment alternatives with the patient. And also the patient, explained to him as best as possible in understanding for the above listed proc edure. PROCEDURE ITSELF: After obtaining informed consent, , routine monitors placed, timeouts were ca lled to confirm the patient and positioning. nonspecific gas pattern. There is a tremendous amount of gas and stool noted. Cystoscope via the urethra. Timeouts were called to confirm the patient, etc. Cystoscope via the ur ethra. Anterior urethra normal, no strictures. From the veru on in, it is visually occlusive, about 3 cm in length. Ureteral orifices identified. Retrograde pyelogram was performed. Particularly on the right side, that is where the hydronephrosis is. There is a very tortuous ureter with a lot of tortuosity associated with it. The upper renal system is also dilated. Multiple pictures are taken and saved, sent to the radiologi st. At this point, I tried passing a wire, but I cannot get one in. Gently, but without trying to make a ny perforations, we tried gently, carefully. We still could not make any progress. After multiple a ttempts, I tried. We used the open-ended technique and we used the Berenstein catheter. Rosalie gutierrez would go up. We terminated the procedure. We inserted a Egan catheter via the urethra with a plan to come back. I do want to mention there wa s some blood noted. The patient had previously been on heparin. Usually, it is not such a difficult situation. I think in this case though given the large size of the prostate, the urinary retention and the fact that it did not pass, obscured some of our vision. So at this point, we placed a Egan catheter. I expect that with the patient not on heparin, we may be more successful. We will give that a shot. But overall, the patient tolerated the procedure without complication. Again today, to just make a note, we were working on the right side. Haresh Waters MD cc: [phone] TT: 05/19/2016 07:45:56 en
--- NOTE | 2016-05-19 07:47 | PN ---
DATE: 05/11/2016 See the consultation note from 05/05, see the progress note from 05/07. See the many dictated operat familia reports throughout the entire week. At this point, the patient remains stable with an indwelling Egan catheter. The urology recommendat ion is to discharge home. He has a left double-J stent, we wanted to insert a right double-J stent. We are going to follow him on ultrasound. Maybe even CT scan. Pathology is pending on a prostate ultrasound and biopsy. So, the plan is as follows: Discharge home, antibiotics continue. The patient is going to the [facility], with outpatient followup. Maintaining of the Egan catheter. BUN and creatinine. Awaiting pathology results. Haresh Waters MD cc: [phone] TT: 05/19/2016 02:45:30 Confirmation # [id number] Dictation # [id number] mn
--- NOTE | 2016-05-19 07:50 | OP ---
PROCEDURE DATE: 05/11/2016 PREOPERATIVE DIAGNOSES: Elevated PSA, urinary retention, hydronephrosis, hematuria, renal failure, a zotemia and hydronephrosis and urinary retention. POSTOPERATIVE DIAGNOSES: Elevated PSA, urinary retention, hydronephrosis, hematuria, renal failure, azotemia and hydronephrosis and urinary retention. PROCEDURE: Prostate ultrasound, and prostate biopsy. COMPLICATIONS: There were none. SPECIMEN SENT: Prostate cores. BLOOD LOSS: Less than 20 mL. INDICATIONS: See history and physical for the details, consultations, operative notes, preoperative diagnoses. The patient is here now for a biopsy just to rule out any malignancy. However, the patient is also i n retention with a Egan catheter and he has hydronephrosis with a stent on the left side, but not on the right side. The BUN and creatinine are noted. PSA noted. He is here now for the above listed procedure. DESCRIPTION OF PROCEDURE: After obtaining informed consent, the patient was placed on the table. Ro utine monitoring devices placed. Timeouts were called to confirm the patient, positioning. Transrectal ultrasound and then biopsy are performed. Multiple images are taken. The prostate volume was probably about 50 mL. Multiple biopsies are then taken and sent down for evaluation. The patient tolerated the procedure w ithout complication. I could see the balloon on the ultrasound. No need to change the Egan. The patient tolerated the procedure without complication. Haresh Waters MD cc: [id number] TT: 05/19/2016 07:49:15 en
--- NOTE | 2016-05-19 08:07 | OP ---
PROCEDURE DATE: 05/10/2016 Please see the operative report dated 05/08/2016. See the consult notes from before. This is a new procedure. PREOPERATIVE DIAGNOSIS: Hydronephrosis, particularly on the right side; elevated PSA, urinary retent ion, azotemia, renal failure, hematuria. POSTOPERATIVE DIAGNOSES: ____, bilateral hydronephrosis, elevated PSA, urinary retention, azotemia, renal failure, hematuria. PROCEDURES: Cystoscopy, bilateral retrograde pyelograms, insertion of a left double-J stent, attempt ed right double-J stent but unable to do so, and insertion of Egan catheter and a cystogram. BLOOD LOSS: Less than 25 mL. COMPLICATIONS: None. See the previously dictated consult notes and procedure notes. The patient is here now for the above procedure. We came to do a right-sided stent. It turns out th e patient has a very dilated left side as well and we inserted a left double-J stent; but on the righ t side, despite me seeing the orifice and seeing a hydronephrotic right side, I still cannot get a st ent in on the right side. We tried very diligently but still cannot get one in. Overall, the patient tolerated the procedure without complication. DESCRIPTION OF PROCEDURE: After obtaining informed consent and discussing with the patient and famil y options, he is here for the above procedure. Cysto via the urethra. The patient is now off the heparin. The bladder, the prosthetic mucosa is still erythematous and juicy. Procedure continues. We identified the ureteral orifice with great difficulty. It is fairly edemato us secondary to Egan catheter. Did not appear to see ____ lesions within the urinary bladder. Did not suspect really any malignancy (although I am very concerned about that in general). Retrograde pyelogram was performed on the right side, again very tortuous; on the left side as well. We are carefully, slowly, gently, meticulously able to get a wire up to the kidney on the left side. We put a double-J stent in. It is severely hydronephrotic. But, on the right side, no matter what we did we were unable to insert a right double-J stent. Therefore, we inserted a Egan catheter via the urethra. The patient tolerated the procedure without complication. ADDENDUM: Based on his original diagnosis of elevated PSA, we are planning for a biopsy of this pros cass but not at the same time as we did all this manipulating today. Will discuss the timing of suc h, but most likely we are going to try for tomorrow, on 05/11/2016. Haresh Waters MD cc: [id number] TT: 05/19/2016 08:03:14 mn
== END 2016-05-11 21:56 | DRG 683 ==
LOC: ED 15:48 → ERH 18:48 → 2RSO 22:28 → 3RSO 05-08 23:40
PROVIDERS: ADMIT Internal Medicine; ATTEND Internal Medicine
PROC: BT14YZZ Fluoroscopy of Kidneys, Ureters and Bladder using Other Contrast (ICD-10-PCS; 2016-05-10)
PROC: BT04ZZZ Plain Radiography of Kidneys, Ureters and Bladder (ICD-10-PCS; 2016-05-10)
PROC: 0WHR8YZ Insertion of Other Device into Genitourinary Tract, Via Natural or Artificial Opening Endoscopic (ICD-10-PCS; principal; 2016-05-10 13:30)
PROC: 0T778DZ Dilation of Left Ureter with Intraluminal Device, Via Natural or Artificial Opening Endoscopic (ICD-10-PCS; 2016-05-10 13:30)
PROC: 0VB08ZX Excision of Prostate, Via Natural or Artificial Opening Endoscopic, Diagnostic (ICD-10-PCS; 2016-05-11)
PROC: BV49ZZZ Ultrasonography of Prostate and Seminal Vesicles (ICD-10-PCS; 2016-05-11)
DX: N17.9 Acute kidney failure, unspecified (principal); E87.1 Hypo-osmolality and hyponatremia; E11.22 Type 2 diabetes mellitus with diabetic chronic kidney disease; R13.12 Dysphagia, oropharyngeal phase; I50.9 Heart failure, unspecified; E11.65 Type 2 diabetes mellitus with hyperglycemia; I69.351 Hemiplegia and hemiparesis following cerebral infarction affecting right dominant side; N39.0 Urinary tract infection, site not specified; D63.1 Anemia in chronic kidney disease; N18.4 Chronic kidney disease, stage 4 (severe); N02.9 Recurrent and persistent hematuria with unspecified morphologic changes; N13.2 Hydronephrosis with renal and ureteral calculous obstruction; J44.9 Chronic obstructive pulmonary disease, unspecified; E03.9 Hypothyroidism, unspecified; E78.00 Pure hypercholesterolemia, unspecified; E78.5 Hyperlipidemia, unspecified; E83.51 Hypocalcemia; E87.5 Hyperkalemia; F32.89 Other specified depressive episodes; F31.9 Bipolar disorder, unspecified; G47.33 Obstructive sleep apnea (adult) (pediatric); K21.9 Gastro-esophageal reflux disease without esophagitis; M10.9 Gout, unspecified; I12.9 Hypertensive chronic kidney disease with stage 1 through stage 4 chronic kidney disease, or unspecified chronic kidney disease; I25.10 Atherosclerotic heart disease of native coronary artery without angina pectoris; I25.2 Old myocardial infarction; N40.1 Benign prostatic hyperplasia with lower urinary tract symptoms; N20.0 Calculus of kidney; Z79.4 Long term (current) use of insulin; Z87.11 Personal history of peptic ulcer disease; Z87.891 Personal history of nicotine dependence; Z95.1 Presence of aortocoronary bypass graft; Z83.3 Family history of diabetes mellitus; Z82.49 Family history of ischemic heart disease and other diseases of the circulatory system; R40.2412 Glasgow coma scale score 13-15, at arrival to emergency department; E66.9 Obesity, unspecified; Z91.018 Allergy to other foods; Z91.041 Radiographic dye allergy status; Z91.011 Allergy to milk products; Z91.013 Allergy to seafood; R63.4 Abnormal weight loss; R97.20 Elevated prostate specific antigen [PSA]; Z74.01 Bed confinement status; B95.1 Streptococcus, group B, as the cause of diseases classified elsewhere; N13.30 Unspecified hydronephrosis

== ENCOUNTER 2016-06-14 08:05 | Inpatient (IN) | payer MEDICARE, MEDICAID ==
[2016-06-13 11:48] VITALS: BMI 30.5
[2016-06-14] MEDS ORDERED: Propofol 10 mg/ml Inj (20 ML) ONE (12:18)
[2016-06-14] MEDS ORDERED: Midazolam 2 MG/2 ML VIAL ONE (12:18)
[2016-06-14] MEDS ORDERED: cefTRIAXone (Rocephin) 1 gm Inj ONE (12:41)
[2016-06-14] MEDS ORDERED: Iohexol 240 (50 ml) ONE (12:41)
[2016-06-14] MEDS ORDERED: ePHEDrine 50 mg/ml Inj ONE (12:52)
[2016-06-14] MEDS ORDERED: Sodium Chloride 0.9% 1,000 ML IV SCH (13:30)
--- NOTE | 2016-06-14 14:41 | RAD ---
PROCEDURE: Fluoroscopy up to 1 hour HISTORY: STENT REMOVAL / INSERTION COMPARISON: TECHNIQUE: Fluoroscopy was provided in the operating room. 1 minutes 23 seconds of fluoroscopy time was used. Fourteen images were submitted FINDINGS: There is placement of a right ureteral stent. There is no change in the appearance of the left ureteral stent IMPRESSION: As above
[2016-06-14] MEDS ORDERED: Albuterol-Ipratrop 3 mg / 0.5 (3 ml) UD IH PRN (15:33)
[2016-06-14] MEDS: Insulin Lispro (humaLOG) MEDIUM Coverage SC SCH (16:42)
[2016-06-14] MEDS ORDERED: Sod Polystyrene Sulf 15 gm/60 ml Oral Susp PO ONE (19:51)
[2016-06-14] MEDS ORDERED: cefTRIAXone 1 gm 1 GM/100 ML BAG IVPB STA (19:53)
[2016-06-14] MEDS ORDERED: Pneumococcal 23-Valent Vaccine IM ONE (23:16)
[2016-06-15 07:45] LABS: HEMATOCRIT 27.4 % (42.0-52.0); MEAN CELL VOLUME 94.8 fL (80.0-105.0); MEAN CORPUSCULAR HEMOGLOBIN 30.8 pg (25.0-35.0); MEAN CORPUSCULAR HGB CONC 32.5 g/dl (31.0-37.0); MEAN PLATELET VOLUME 8.7 fl (7.0-11.0); WHITE BLOOD COUNT 7.5 10^3/ul (4.5-11.0)
[2016-06-15 07:58] LABS: CALCIUM 8.6 mg/dL (8.4-10.5)
[2016-06-15 08:00] LABS: POTASSIUM 5.6 mmol/L (3.6-5.0)
--- NOTE | 2016-06-15 08:17 | HP ---
REASON FOR ADMISSION: For changing of stent (see the addendum below because the patient is actually admitted to the hospital, not just to same day surgery). The patient is a very pleasant gentleman with multiple medical issues. He is a patient of Dr. Riley wiley. The patient lives in a alf. He has progressively now renal failure. He has hydronephrosis. See the previously dictated notes. We had previously attempted to place sten ts on both the left and right side. We were only able to get to the left side. At this point, the patient is coming in today. We are going to change the left-sided stent and attem pt again for the right side. In the interim, there has been no major change in his medical history. He is brought in today for change in his stent. He currently has an indwelling Egan catheter as well (see below) because his catheter is actually no t in proper location. PAST MEDICAL AND SURGICAL HISTORY: As listed on the chart. No history of an ME. A patient of Dr. Armenta. MEDICATIONS: See chart. ALLERGIES: . REVIEW OF SYSTEMS: Listed above, noncontributory. SOCIAL HISTORY: He is living in a alf at [facility] on [facility] [facility]. PHYSICAL EXAMINATION: GENERAL: Well-nourished male. EXTREMITIES: His upper extremity contractions are noted. ABDOMEN: Relatively soft. GENITOURINARY: He has a normal male phallus. He is circumcised. The catheter appears as if it migh t be in place, but the urine is exceedingly cloudy (see the pictures taken below). So the remainder of physical exam is delayed until the time of the procedure. I do want to mention t hat his prostate is soft and there does not appear to be any form of abscess. The remainder of the exam is otherwise unremarkable. LABORATORIES: See chart. Significantly though, just to mention briefly, his potassium is 5.8 and hi s creatinine is up to 3 (previous creatinines were in the lower 2s and now it is up to 3). See the chart. DIAGNOSES: Urinary retention, voiding dysfunction, bilateral hydronephrosis, renal failure, hematuri a and progressively worsening. PLAN: The patient to the OR today. We are going to change his stent on the left side. We are going to attempt to insert a stent on the right side and then further plans will follow. The patient will be given antibiotic prophylaxis. So the plan as follows: The patient to the OR. I want to mention I spoke to his sister named Lizeth as well as to the patient in terms of consent and explaining what we were doing, and then further plans will follow. ADDENDUM: Please see the operative report. After doing the procedure, in fact actually that Egan c atheter which appears to be in and draining is actually draining just purulent urine and it is actual ly within the prostatic urethra, not within the urinary bladder. Subsequently, after we did the proc edure, see the body of the report, we actually emptied out. The patient was actually in retention wi th purulent urine, which took some time to irrigate out that purulent urine. In fact, it is within the prostatic urethra. Today also, we were successful at getting a stent in the right side. I am going to admit the patient under my service and obtain consultations with infectious disease and also with Renal, with Dr. Be, with Dr. Lin. We are going to keep the patient in the hospital as an emergency admission for fear of sepsis, but n ow that we have done the procedure, we were actually able to get the stents in both the left and the right side. I am hoping this will improve his renal function as well as his hyperkalemia as well as his general o verall status. So the plan is as follows: This is an emergency admission for renal failure, potential urosepsis and the plan is antibiotics and observation. Haresh Waters MD cc: [id number] TT: 06/15/2016 08:16:25 en
[2016-06-15] MEDS: Pantoprazole 40 mg EC Tab PO SCH (08:23)
[2016-06-15] MEDS: Insulin Lispro (humaLOG) MEDIUM Coverage SC SCH ×5 (08:23→21:41)
--- NOTE | 2016-06-15 08:40 | OP ---
PROCEDURE DATE: 06/14/2016 PREOPERATIVE DIAGNOSES: Urinary retention, voiding dysfunction, hydronephrosis , renal failure, hematuria. POSTOPERATIVE DIAGNOSES: Nonfunctioning catheter, urinary retention, potential sepsis, bilateral hydronephrosis. See the body of the report. PROCEDURES: Cystoscopy, a cystogram, a right retrograde pyelogram, insertion of right double-J stent, insertion of a Egan catheter. COMPLICATIONS: There were none. BLOOD LOSS: Less than 20 mL. At the termination of the procedure, the patient has bilateral stents in place, a left and right stent, and an indwelling Egan catheter that is working properly, a coude tip catheter, confirmed on cystogram. INDICATIONS: See the history and physical for further details, but in brief, he is a very pleasant gentleman who I have been following now, who we brought in today to try to insert a stent on the right side. In fact, we were able to insert a stent on the right side and we were able to readjust the Egan catheter. OPERATIVE FINDINGS: I do want to mention, the Egan catheter the patient came with is not in place. There is purulent urine. I took pictures. More importantly, we sent off cultures to the lab (I do want to mention these cultures were done after antibiotics were given already). The catheter that was there in fact, although it appeared to be in, it was not in. Subsequently, when we removed it, there is purulent urine and actually when we inserted the cystoscope, we drained out purulent urine, a volume of about 400-500 mL. It was thick purulent material. See the end of the report as well. The findings from the procedure itself, the anterior urethra is normal. There is no direct stricture. From the veru on in is visually occlusive (I cannot specifically identify a location where I think the Egan catheter balloon is). However, I am able to identify a visually occlusive prostate. Within the urinary bladder, there is purulent urine. The left ureteral orifice is identified and the stent is in good location. In fact, we did not change the left side today at all. On the right side, I am only able to identify the right ureteral orifice. It is very, very tiny, pinpoint, very difficult to find in fact as previously was the case, even after irrigation, etc. However, by using anatomy and symmetry between where the left orifice is and the right orifice is, we were able to find it. Again, in the lower ureter, there is significant abnormality of unclear etiology, but today unlike previous times, we were able to get a stent in on that side. See the body of the report. There is a tremendous amount of hydronephrosis, but we are able to get a double- J stent in. We used a 5-Vietnamese multilength catheter, 5-Vietnamese . At the termination of the procedure, when I inserted a Egan catheter, it actually went into the prostatic urethra in a natural sort of way and then afterwards, once I felt it was not in properly, I actually did a cystogram. I readjusted it. I changed the catheter from a regular Egan catheter to a coude tip catheter and I confirmed . See the body of the report. So at the termination of the procedure, there are bilateral stents in place and a Egan catheter in place, draining well. I do want to mention that after all this, a rectal exam was performed. There does not appear to be any form of abscess. PROCEDURE ITSELF: After obtaining informed consent, the patient was placed on the table, routine monitoring devices placed, timeouts were called. Consents were obtained. I also spoke to the sister. The patient was given antibiotic prophylaxis. Timeouts were called to confirm the patient and positioning. [employer] Manager film was performed and shows the stent in the left in place. Cystoscope via the urethra. What we noticed before as we even take out the Egan catheter, I removed the Egan myself, that there is purulent looking, appearing urine. We sent this for culture. Upon insertion of the cystoscope, the patient drained about 500 mL plus of purulent urine. I do want to mention prior to the procedure, the patient had a potassium of 5.8 and creatinine up to 3. At this point, we irrigated out the catheter. I do want to mention the anesthesiologist mentioned the blood pressure is a little bit low, so I tried manipulating as little as possible, but I felt once the patient was anesthetized and given antibiotics, that we should try to pursue, particularly on the right side. We did not touch the left side. All we did was, by symmetry, to try to find the right-sided ureteral orifice, which we were able to, delicately and gently. A retrograde is performed using an open-ended catheter. The distal ureter is significantly abnormal. Films were submitted. We were able to put an open-ended through to the distal ureter, then we passed the wire, we jiggled it, and then it luckily went all the way up. We then put the open-ended all the way up to the kidney. We did a contrast study to confirm our positioning and then we placed a wire and we were able to put a double-J stent. We did this rapidly, as quickly as possible. So first, we had irrigated out all the fluid that was purulent material. We had sent off a culture of this material, but the patient already received Rocephin. So we will have to see whether the cultures anything. But now, we had a double-J stent in the right side. We used a 5-Vietnamese 22. At this point, we wanted to do as minimal as possible. We inserted a Egan catheter via the urethra. It just did not feel right and did not drain, so I did a fluoroscopic imaging and the Egan catheter was not within the bladder. In fact, it curled (I had not inflated the balloon at that point). It just did not feel right. We removed it. We used a coude tip. This went right in, did a fluoroscopic imaging to confirm and then I did a cystogram to confirm. Overall, at this point, the patient has a Egan catheter in place draining. He has a double-J stent on the right side now. He has the old left one still in place. We did not adjust that. I did not want to cause any further trouble. Connected everything to the tubings. Rectal exam is performed. There is no abscess. The patient tolerated the procedure well without complication. ADDENDUM: We are going to bring the patient to the hospital. We are going to get an emergency admission. We are going to monitor the patient closely and then make further plans. Haresh Waters MD cc: [id number] TT: 06/15/2016 08:39:44 en MTDD
[2016-06-15] MEDS ORDERED: Sod Polystyrene Sulf 15 gm/60 ml Oral Susp PO ONE (08:47)
[2016-06-15] MEDS: cefTRIAXone 1 gm 1 GM/100 ML BAG IVPB SCH (09:02)
[2016-06-15 10:09] LABS: ALB/GLOB RATIO 0.8 (1.1-1.8); BILIRUBIN,TOTAL 0.7 mg/dL (0.2-1.3); TOTAL PROTEIN 7.6 g/dL (5.8-8.3)
--- NOTE | 2016-06-15 10:40 | HP ---
CHIEF COMPLAINT: Weak, fatigue, lethargic, not feeling very well. HISTORY OF PRESENT ILLNESS: The patient is a 70-year-old, my private patient, resident of [facility] with past medical history of hypertension, congestive heart failure, CVA, went to see Dr. Waters in his office and Dr. Waters sent the patient to [facility] because does not look fine. Last time, his left side ureteral stent was placed. This time, according to Dr. Waters, he will try to change that left-sided ureteral stent and will try to put the right side ureteral stent. The patient has no fever. No nausea, vomiting, diarrhea, but feeling fatigued, tired. PAST MEDICAL HISTORY: Hypertension, congestive heart failure, diabetes mellitus , anemia, COPD, obstructive sleep apnea syndrome, renal insufficiency. ALLERGIES: The patient is not allergic to any medication. FAMILY HISTORY: Father and mother noncontributory. HABITS: No smoking, no drugs, no ethanol. REVIEW OF SYSTEMS: The patient looks comfortable. No nausea, vomiting, diarrhea. No hematuria, no hematochezia, but feeling fatigued and tired. Mental status is on the baseline. PHYSICAL EXAMINATION: VITAL SIGNS: Temperature 97.7, pulse 88, blood pressure 112/63, respiratory rate 20. HEENT: Head normocephalic, atraumatic. Eyes: PERRLA. Extraocular muscles intact. Conjunctivae pink. Eyelids unremarkable. Nose patent. Mucous membranes moist. NECK: Supple. No carotid bruit, no JVD, no thyromegaly. CHEST: Bilaterally symmetrical. HEART: S1, S2 positive. LUNGS: Clear to auscultation. ABDOMEN: Soft. Bowel sounds positive. No organomegaly. EXTREMITIES: No edema, no cyanosis. NEUROLOGIC: The patient is awake, alert, moving all 4 extremities. No focal deficits. LABORATORIES: We do not have many labs. For 06/14/2016, potassium was 5.8. Sugar 205, 207, 162. ASSESSMENT AND PLAN: The patient is a 70-year-old ET male, seen and examined on the bedside on 06/14/2016 late. I am doing history and physical for 2016. Has hyperkalemia, uncontrolled diabetes mellitus, renal insufficiency. Dr. Cindy Be is whittling room operator on the case. Has hydronephrosis. Last admission, left-sided ureteral stent was placed. This time, Dr. Waters will try to change left side stent and will attempt again to put right side stent. The patient is having Egan catheter. Urinary retention, voiding dysfunction, bilateral hydronephrosis, hematuria, progressively worsening. Plan is take patient to OR as per Dr. Waters, changing stent and putting new stents. Dr. Waters spoke to patient's sister, Lizeth. Rule out sepsis, history of chronic obstructive pulmonary disease, obstructive sleep apnea, obesity, congestive heart failure, history of cerebrovascular accident, history of nephrolithiasis, benign prostatic hypertrophy, status post blood transfusion, history of cerebrovascular accident . Continue present treatment. ID, urologist and whittling room operator is on the case. Will follow up. Salima Lin MD cc: [id number] TT: 06/15/2016 10:39:59 en MTDD
[2016-06-15 10:49] LABS: IRON 69 ug/dL (45-180)
[2016-06-15 11:01] LABS: URINE BILIRUBIN NEGATIVE (NEGATIVE); URINE BLOOD LARGE (NEGATIVE); URINE GLUCOSE (UA) NEGATIVE (NEGATIVE); URINE KETONE NEGATIVE (NEGATIVE); URINE LEUKOCYTE ESTERASE LARGE Leu/uL (NEGATIVE); URINE PROTEIN 100 mg/dL (<30 mg/dL); URINE UROBILINOGEN 0.2 E.U./dL (<1 E.U./dL)
[2016-06-15 11:02] LABS: URINE APPEARANCE TURBID (CLEAR); URINE COLOR YELLOW (YELLOW)
[2016-06-15 12:10] LABS: URINE EPITHELIAL CELLS 0 - 2 /hpf (0-5); URINE RBC TNTC /hpf (0-2); URINE WBC TNTC /hpf (0-6)
[2016-06-15 12:11] LABS: URINE BACTERIA MANY (NEG)
[2016-06-15] MEDS ORDERED: Sodium Chloride 0.45% 1,000 ML IV SCH (12:45)
--- NOTE | 2016-06-15 13:23 | CON ---
DATE: 06/15/2016 HISTORY OF PRESENT ILLNESS: This 70-year-old male was admitted by Dr. Haresh Waters from urology. He took the patient to the [facility] OR yesterday for replacement of a Egan catheter, replacement of a left ureteral stent and a newly placed right ureteral stent in the setting of hydronephrosis. 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 The patient underwent successful first time placement of a right ureteral stent yesterday, replacement of his left ureteral stent and a Egan catheter replacement yesterday by Dr. Haresh Waters. Of note, the patient is lying in his bed, denying any fever or chills and cooperating with the nursing staff. 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 EYES: No change in visual acuity. EARS: No hearing loss. THROAT: No swallowing difficulty. NECK: No stiffness. CARDIOVASCULAR: He has a history of congestive heart failure. PULMONARY: No cough, no hemoptysis. GASTROINTESTINAL: No hematemesis, no melena. GENITOURINARY: He has chronic renal failure, stage IV, bilateral hydronephrosis , recent prostate biopsy that was consistent with benign prostate hypertrophy in the setting of an elevated PSA by Dr. Haresh Waters, and also with history of recurrent urinary tract infections. VASCULAR: He is bedridden. SKIN: Without rash. NEUROLOGICAL: Old stroke. PSYCHOLOGICAL: Denies depression, but has history of bipolar disorder in his past. FAMILY HISTORY: Noncontributory. SOCIAL HISTORY: He is a current nondrinker, nonsmoker, non-IV drug misuser. He resides at [facility] for skilled nursing care. ALLERGIES: MILK, POULTRY AND SHELLFISH. MEDICATIONS: Outpatient medication included Crestor, Protonix, Lopressor, subcutaneous heparin, Periactin, and insulin coverage before meals and at bedtime. PHYSICAL EXAMINATION: GENERAL: The patient is lying in bed, alert and appropriate. VITAL SIGNS: Temperature 98, respirations 18, pulse 79, blood pressure 116/69 with a pulse ox of 100% on room air. HEENT: Head normocephalic, atraumatic. Eyes: No icterus. Ears clear. Throat not injected. NECK: Supple. HEART: S1, S2. No pathological rubs, murmurs, or gallops. LUNGS: Clear. ABDOMEN: Soft. EXTREMITIES: No clubbing, no cyanosis, no edema. SKIN: Without rash. NEUROLOGIC: Right hemiplegia, right arm contracture. VASCULAR: Legs warm to touch. PSYCHOLOGICAL: Alert. LABORATORY DATA: White count 7500, hemoglobin 8.9, hematocrit 27.4, MCV 95, platelets 228,000. Sodium 134, K 5.6, chloride 104, bicarbonate 19, BUN 61, creatinine 4.1, random blood sugar 182, percent saturation 33, iron level 69, normal. All liver function testing was normal including bilirubin 0.7, AST 19, ALT 29, alkaline phosphatase is elevated at 170. Cholesterol 95, HDL 27, LDL 31 , triglycerides 138. Urinalysis showed many bacteria. Urine culture is showing gram-positive cocci. IMPRESSION: A 70-year-old male with chronic renal failure, stage IV, admitted with hydronephrosis, benign prostate hypertrophy, chronic Egan catheter for neurogenic bladder who has undergone a left ureteral stent replacement, right ureteral stent placement, placement of his Egan catheter by Dr. Haresh Waters yesterday with comorbidities of hyperkalemia, chronic hypertension, hyperlipidemia, old stroke, peptic ulcer disease, now with elevated alkaline phosphatase, insulin-dependent diabetes mellitus, old stroke. PLAN: The patient will continue on nebulizer therapy, subcutaneous heparin, insulin coverage, metoprolol tartrate, Protonix, IV Rocephin and is being followed by Dr. Salima Lin, his PMD, Dr. Haresh Waters from urology, Dr. Jb Sheldon from infectious disease, and I will place a consultation with Dr. Leonardo from GI regarding his elevated alkaline phosphatase level as well. I have expressed to his nurse that the patient will be started on 0.45 saline at 70 mL per hour. He has received a stat dose of Kayexalate 30 grams p.o. At present, he will have serial electrolytes and adjustment of medication based on his clinical course. Greater than fifty minutes was spent in the care, coordination of care and discussion of care for this patient today. All of this was reviewed in detail with the patient and his nurse at his bedside. His overall prognosis remains poor. Cindy Be MD cc: [id number] TT: 06/15/2016 13:23:11 Confirmation # [id number] Dictation # [id number] arden JONES
--- NOTE | 2016-06-15 14:50 | PCM.URO ---
Urology Progress Note - Objective Lab Results Last 24 Hours: Laboratory Results - last 24 hr 06/14/16 06/14/16 06/14/16 14:18 16:19 21:31 WBC RBC Hgb Hct MCV MCH MCHC RDW Plt Count MPV Sodium Potassium Chloride Carbon Dioxide Anion Gap BUN Creatinine Est GFR ( Amer) Est GFR (Non-Af Amer) POC Glucose (mg/dL) 205 H 207 H 162 H Random Glucose Calcium Iron TIBC % Saturation Total Bilirubin AST ALT Alkaline Phosphatase Total Protein Albumin Globulin Albumin/Globulin Ratio Triglycerides Cholesterol LDL Cholesterol Direct HDL Cholesterol Urine Color Urine Appearance Urine pH Ur Specific [place] Urine Protein Urine Glucose (UA) Urine Ketones Urine Blood Urine Nitrate Urine Bilirubin Urine Urobilinogen Ur Leukocyte Esterase Urine RBC Urine WBC Ur Epithelial Cells Urine Bacteria Urine Other 06/15/16 06/15/16 06/15/16 07:30 07:30 07:32 WBC 7.5 D RBC 2.89 L Hgb 8.9 L Hct 27.4 L MCV 94.8 MCH 30.8 MCHC 32.5 RDW 13.0 Plt Count 228 MPV 8.7 Sodium 134 Potassium 5.6 H* D Chloride 104 Carbon Dioxide 19 L Anion Gap 17 BUN 61 H Creatinine 4.1 H Est GFR ( Amer) 18 Est GFR (Non-Af Amer) 15 POC Glucose (mg/dL) 182 H Random Glucose 158 H Calcium 8.6 Iron TIBC % Saturation Total Bilirubin 0.7 AST 19 ALT 29 Alkaline Phosphatase 170 H Total Protein 7.6 Albumin 3.5 Globulin 4.2 Albumin/Globulin Ratio 0.8 L Triglycerides 138 Cholesterol 95 L LDL Cholesterol Direct 31 HDL Cholesterol 27 L Urine Color Urine Appearance Urine pH Ur Specific [place] Urine Protein Urine Glucose (UA) Urine Ketones Urine Blood Urine Nitrate Urine Bilirubin Urine Urobilinogen Ur Leukocyte Esterase Urine RBC Urine WBC Ur Epithelial Cells Urine Bacteria Urine Other 06/15/16 06/15/16 06/15/16 10:00 10:30 11:27 WBC RBC Hgb Hct MCV MCH MCHC RDW Plt Count MPV Sodium Potassium Chloride Carbon Dioxide Anion Gap BUN Creatinine Est GFR ( Amer) Est GFR (Non-Af Amer) POC Glucose (mg/dL) 303 H Random Glucose Calcium Iron 69 TIBC 207 L % Saturation 33 Total Bilirubin AST ALT Alkaline Phosphatase Total Protein Albumin Globulin Albumin/Globulin Ratio Triglycerides Cholesterol LDL Cholesterol Direct HDL Cholesterol Urine Color Yellow Urine Appearance Turbid Urine pH 6.0 Ur Specific [place] 1.020 Urine Protein 100 H Urine Glucose (UA) Negative Urine Ketones Negative Urine Blood Large H Urine Nitrate Negative Urine Bilirubin Negative Urine Urobilinogen 0.2 Ur Leukocyte Esterase Large H Urine RBC Tntc Urine WBC Tntc Ur Epithelial Cells 0 - 2 Urine Bacteria Many Urine Other Uyeast 06/15/16 13:29 WBC RBC Hgb Hct MCV MCH MCHC RDW Plt Count MPV Sodium Potassium Chloride Carbon Dioxide Anion Gap BUN Creatinine Est GFR ( Amer) Est GFR (Non-Af Amer) POC Glucose (mg/dL) 235 H Random Glucose Calcium Iron TIBC % Saturation Total Bilirubin AST ALT Alkaline Phosphatase Total Protein Albumin Globulin Albumin/Globulin Ratio Triglycerides Cholesterol LDL Cholesterol Direct HDL Cholesterol Urine Color Urine Appearance Urine pH Ur Specific [place] Urine Protein Urine Glucose (UA) Urine Ketones Urine Blood Urine Nitrate Urine Bilirubin Urine Urobilinogen Ur Leukocyte Esterase Urine RBC Urine WBC Ur Epithelial Cells Urine Bacteria Urine Other Intake & Output: Intake & Output 06/14/16 06/15/16 06/15/16 18:59 06:59 18:59 Intake Total 0 900 460 Output Total 750 400 Balance 0 150 60 Weight 195 lb Intake: IV 0 100 Right Foot 100 Oral 900 360 Output: Urine 750 400 Urethral (Egan) 750 400 Other: Voiding Method Indwelling Catheter # Bowel Movements 0 0 Vital Signs: Vital Signs - 24 hr 06/14/16 06/14/16 06/14/16 16:00 17:14 23:03 Temperature 97.7 F 97.7 F Pulse Rate 88 88 88 Respiratory 22 22 Rate Blood Pressure 111/63 112/63 111/63 O2 Sat by Pulse 99 Oximetry 06/15/16 06/15/16 08:51 09:01 Temperature 98 F Pulse Rate 79 79 Respiratory 18 Rate Blood Pressure 116/69 120/71 O2 Sat by Pulse 100 Oximetry
--- NOTE | 2016-06-15 15:25 | PN ---
DATE: 06/15/2016 See the previously dictated note. The patient is currently resting. The patient is currently resting. [employer]'s notes are noted. The patient with a past medical and surgical history with no other changes. The patient under the care of Dr. Be and Dr. Lin. From urology standpoint, the physical exam is no change. Egan catheter in place. The labs today interestingly, the creatinine has gone up to 4.1 (this is elevated from the previous o f 3, but I suspect actually that was just inadequate and that was an older blood test and that by the time we did his procedure yesterday it was much higher. His serum glucose was 182, when he came in it was 207. DIAGNOSES: Retention, renal failure, hydronephrosis, sepsis, abnormal functioning kidney. PLAN: As follows. We are going to monitor the patient. Continue antibiotics. That will be as per ID, but we will give some IV fluids, then monitor and then make further plans. I suspect that it will get better with a little more time, but we have to watch him very closely give n his fragile nature. So the plan is as follows: IV fluids, antibiotics, follow BUN and creatinine and then further plans to follow. Haresh Waters MD cc: [phone] TT: 06/15/2016 15:25:21 Confirmation # [id number] Dictation # [id number] arden
[2016-06-15 16:58] LABS: FOLATE 7.5 ng/mL
--- NOTE | 2016-06-15 19:45 | CP.PCM.CON ---
History of Present Illness - History of Present Illness History of Present Illness: Infectious Disease Consultation: June 15, 2016 70 yo male brought in from [facility] ) for OR replacement of catheter, replacement of left ureteral stent, and new placement of right ureteral stent in setting of hydronephrosis. Patient does not appear to be in any distress. Group B strep seen in cultures of the area. PMHx: CAD, PVD, hypercholesterolemia, GERDs, obesity, DM , recent large weight loss episodes, Gout, Bipolar Disorder, Iron Deficiency Anemia PSHx: CABG 2 vessels, angioplasty Allergies: Chicken, IV Dye, Iodine, Milk, seafood, shellfish Social Hx: No EtOH or illicit drugs. Former tobacco use stopped 30 years ago Active Medications Acetaminophen (Tylenol 325mg Tab) 650 mg PO Q6H PRN PRN Reason: elevated temp 101 Albuterol/Ipratropium (Duoneb 3 Mg/0.5 Mg (3 Ml) Ud) 3 ml IH [id number] PRN PRN Reason: Shortness of Breath Cyproheptadine HCl (Periactin) 4 mg PO DAILY [facility] Last Admin: 06/15/16 09:01 Dose: 4 mg Heparin Sodium (Porcine) (Heparin) 5,000 units SC Q12 EMILY PRN Reason: Protocol Last Admin: 06/15/16 09:02 Dose: 5,000 units Ceftriaxone Sodium (Rocephin 1 Gram Ivpb) 1 gm in 100 mls @ 100 mls/hr IVPB DAILY [facility]ILY PRN Reason: Protocol Last Admin: 06/15/16 09:02 Dose: 100 mls/hr Sodium Chloride (Sodium Chloride 0.45%) 1,000 mls @ 70 mls/hr IV .[id number] [facility] Insulin Human Lispro (Humalog Med) 0 units SC ACHS [facility]ILY PRN Reason: Protocol Last Admin: 06/15/16 17:00 Dose: 1 units Metoprolol Tartrate (Lopressor) 25 mg PO BID [facility] Last Admin: 06/15/16 17:00 Dose: 25 mg Pantoprazole Sodium (Protonix Ec Tab) 40 mg PO 0630 [facility] Last Admin: 06/15/16 08:23 Dose: 40 mg Family Hx: DM and CAD in father - at 54 yo CAD in mother - at 62 yo ROS: No fevers, chills, nausea, vomiting, diarrhea, headaches, dizziness, chest pain , abdominal pain, melena, hematuria, hematemesis, hematochezia, depression, anxiety, cough, SOB Past Patient History - Past Social History Smoking Status: Unknown If Ever Smoked - CARDIAC Hx Cardiac Disorders: Yes Hx Hypertension: Yes - NEUROLOGICAL HX Cerebrovascular Accident: Yes (R sided weakness; aphasia?) - HEENT Hx HEENT Problems: Yes (eyeglasses) - RENAL Hx Renal Failure: Yes - ENDOCRINE/METABOLIC Hx Diabetes Mellitus Type 1: Yes - HEMATOLOGICAL/ONCOLOGICAL Hx Anemia: Yes - INTEGUMENTARY Other/Comment: ble discolored brown skin, right heel dry wound, left heel 1.5cm brown dry wound, slight redness to r great toe, scar lle, bruise outer right knee, red dry wound r knee, red buttocks, stage 2 1.5cm round red dry wound to sacrum - MUSCULOSKELETAL/RHEUMATOLOGICAL Hx Falls: No - GASTROINTESTINAL Hx Gastroesophageal Reflux: Yes - GENITOURINARY/GYNECOLOGICAL Hx Genitourinary Disorders: Yes (hydronephrosis) Hx Incontinence: Yes Hx Prostate Problems: Yes (bph) - PSYCHIATRIC Hx Bipolar Disorder: Yes Hx Depression: Yes Hx Emotional Abuse: No Hx Physical Abuse: No - SURGICAL HISTORY Hx Surgeries: Yes - ANESTHESIA Hx Anesthesia Reactions: No Hx Malignant Hyperthermia: No Meds Allergies/Adverse Reactions: Allergies Allergy/AdvReac Type Severity Reaction Status Date / Time milk Allergy VOMITING Verified 05/04/16 20:19 Poultry Allergy VOMITING Verified 05/04/16 20:19 shellfish derived Allergy VOMITING Verified 05/04/16 20:19 - Medications Medications: Current Medications Acetaminophen (Tylenol 325mg Tab) 650 mg PO Q6H PRN PRN Reason: elevated temp 101 Albuterol/Ipratropium (Duoneb 3 Mg/0.5 Mg (3 Ml) Ud) 3 ml IH [id number] PRN PRN Reason: Shortness of Breath Cyproheptadine HCl (Periactin) 4 mg PO DAILY [facility] Last Admin: 06/15/16 09:01 Dose: 4 mg Heparin Sodium (Porcine) (Heparin) 5,000 units SC Q12 [facility] PRN Reason: Protocol Last Admin: 06/15/16 09:02 Dose: 5,000 units Ceftriaxone Sodium (Rocephin 1 Gram Ivpb) 1 gm in 100 mls @ 100 mls/hr IVPB DAILY [facility] PRN Reason: Protocol Last Admin: 06/15/16 09:02 Dose: 100 mls/hr Sodium Chloride (Sodium Chloride 0.45%) 1,000 mls @ 70 mls/hr IV .[id number] [facility] Insulin Human Lispro (Humalog Med) 0 units SC ACHS [facility] PRN Reason: Protocol Last Admin: 06/15/16 17:00 Dose: 1 units Metoprolol Tartrate (Lopressor) 25 mg PO BID [facility] Last Admin: 06/15/16 17:00 Dose: 25 mg Pantoprazole Sodium (Protonix Ec Tab) 40 mg PO 0630 [facility] Last Admin: 06/15/16 08:23 Dose: 40 mg Physical Exam - Constitutional Appears: Non-toxic, No Acute Distress, Chronically Ill - Head Exam Head Exam: ATRAUMATIC, NORMOCEPHALIC - Eye Exam Eye Exam: EOMI, PERRL Pupil Exam: NORMAL ACCOMODATION, PERRL - ENT Exam ENT Exam: Mucous Membranes Moist, Normal External Ear Exam, TM's Normal Bilaterally - Neck Exam Neck exam: Positive for: Full Rom, Normal Inspection - Respiratory Exam Respiratory Exam: Clear to Auscultation Bilateral, NORMAL BREATHING PATTERN. absent: Rales, Rhonchi, Wheezes - Cardiovascular Exam Cardiovascular Exam: REGULAR RHYTHM, RRR, +S1, +S2 - GI/Abdominal Exam GI & Abdominal Exam: Normal Bowel Sounds, Soft. absent: Distended, Tenderness - Extremities Exam Extremities exam: Positive for: full ROM, normal inspection - Neurological Exam Neurological exam: Alert, CN II-XII Intact, Oriented x3 - Psychiatric Exam Psychiatric exam: Normal Affect, Normal Mood - Skin Skin Exam: Intact, Normal Color Results - Vital Signs Recent Vital Signs: Last Vital Signs Temp 98 F 06/15/16 16:00 Pulse 76 06/15/16 17:00 Resp 18 06/15/16 16:00 BP 116/66 06/15/16 17:00 Pulse Ox 100 06/15/16 16:00 - Labs Result Diagrams: 06/15/16 07:30 06/15/16 07:30 Labs: Laboratory Results - last 24 hr 06/14/16 06/15/16 06/15/16 21:31 07:30 07:30 WBC 7.5 D RBC 2.89 L Hgb 8.9 L Hct 27.4 L MCV 94.8 MCH 30.8 MCHC 32.5 RDW 13.0 Plt Count 228 MPV 8.7 Sodium 134 Potassium 5.6 H* D Chloride 104 Carbon Dioxide 19 L Anion Gap 17 BUN 61 H Creatinine 4.1 H Est GFR ( Amer) 18 Est GFR (Non-Af Amer) 15 POC Glucose (mg/dL) 162 H Random Glucose 158 H Hemoglobin A1c Calcium 8.6 Iron TIBC % Saturation Total Bilirubin 0.7 AST 19 ALT 29 Alkaline Phosphatase 170 H Total Protein 7.6 Albumin 3.5 Globulin 4.2 Albumin/Globulin Ratio 0.8 L Triglycerides 138 Cholesterol 95 L LDL Cholesterol Direct 31 HDL Cholesterol 27 L Vitamin B12 Folate Urine Color Urine Appearance Urine pH Ur Specific [place] Urine Protein Urine Glucose (UA) Urine Ketones Urine Blood Urine Nitrate Urine Bilirubin Urine Urobilinogen Ur Leukocyte Esterase Urine RBC Urine WBC Ur Epithelial Cells Urine Bacteria Urine Other 06/15/16 06/15/16 06/15/16 07:32 10:00 10:00 WBC RBC Hgb Hct MCV MCH MCHC RDW Plt Count MPV Sodium Potassium Chloride Carbon Dioxide Anion Gap BUN Creatinine Est GFR ( Amer) Est GFR (Non-Af Amer) POC Glucose (mg/dL) 182 H Random Glucose Hemoglobin A1c 7.8 H D Calcium Iron TIBC % Saturation Total Bilirubin AST ALT Alkaline Phosphatase Total Protein Albumin Globulin Albumin/Globulin Ratio Triglycerides Cholesterol LDL Cholesterol Direct HDL Cholesterol Vitamin B12 675 Folate 7.5 Urine Color Urine Appearance Urine pH Ur Specific [place] Urine Protein Urine Glucose (UA) Urine Ketones Urine Blood Urine Nitrate Urine Bilirubin Urine Urobilinogen Ur Leukocyte Esterase Urine RBC Urine WBC Ur Epithelial Cells Urine Bacteria Urine Other 06/15/16 06/15/16 06/15/16 10:00 10:30 11:27 WBC RBC Hgb Hct MCV MCH MCHC RDW Plt Count MPV Sodium Potassium Chloride Carbon Dioxide Anion Gap BUN Creatinine Est GFR ( Amer) Est GFR (Non-Af Amer) POC Glucose (mg/dL) 303 H Random Glucose Hemoglobin A1c Calcium Iron 69 TIBC 207 L % Saturation 33 Total Bilirubin AST ALT Alkaline Phosphatase Total Protein Albumin Globulin Albumin/Globulin Ratio Triglycerides Cholesterol LDL Cholesterol Direct HDL Cholesterol Vitamin B12 Folate Urine Color Yellow Urine Appearance Turbid Urine pH 6.0 Ur Specific [place] 1.020 Urine Protein 100 H Urine Glucose (UA) Negative Urine Ketones Negative Urine Blood Large H Urine Nitrate Negative Urine Bilirubin Negative Urine Urobilinogen 0.2 Ur Leukocyte Esterase Large H Urine RBC Tntc Urine WBC Tntc Ur Epithelial Cells 0 - 2 Urine Bacteria Many Urine Other Uyeast 06/15/16 06/15/16 13:29 16:04 WBC RBC Hgb Hct MCV MCH MCHC RDW Plt Count MPV Sodium Potassium Chloride Carbon Dioxide Anion Gap BUN Creatinine Est GFR ( Amer) Est GFR (Non-Af Amer) POC Glucose (mg/dL) 235 H 168 H Random Glucose Hemoglobin A1c Calcium Iron TIBC % Saturation Total Bilirubin AST ALT Alkaline Phosphatase Total Protein Albumin Globulin Albumin/Globulin Ratio Triglycerides Cholesterol LDL Cholesterol Direct HDL Cholesterol Vitamin B12 Folate Urine Color Urine Appearance Urine pH Ur Specific [place] Urine Protein Urine Glucose (UA) Urine Ketones Urine Blood Urine Nitrate Urine Bilirubin Urine Urobilinogen Ur Leukocyte Esterase Urine RBC Urine WBC Ur Epithelial Cells Urine Bacteria Urine Other Assessment & Plan - Assessment and Plan (Free Text) Assessment: 70 yo male admitted after catheter change, left ureteral stent replacement, and right ureteral stent placement. Culture of urine showing gram positive cocci growth. Supportive care. Currently on Rocephin but patient appears comfortable. Culture may be a sign of colonization of the area. Local wound care. Awaiting cultures. Supportive care. Thank you for allowing me to participate in the care of this patient, we will follow with you.
--- NOTE | 2016-06-16 00:19 | PN ---
DATE: 06/15/2016 SUBJECTIVE: The patient is seen and examined on the bedside. Looks comfortable. No overnight events noted. Discussion done with the nursing staff. No nausea, vomiting, diarrhea. No hematuria, hematochezia. No headache , no dizziness, no fever, no chills. Does not look like toxic. PHYSICAL EXAMINATION: VITAL SIGNS: Temperature is 98, pulse 76, blood pressure ____/66, respiratory rate 18. HEENT: Head normocephalic, atraumatic. Eyes PERRLA. Extraocular muscles intact. Conjunctivae clear. Nose patent. Mucous membranes moist. NECK: Supple. No carotid bruit, JVD, thyromegaly. CHEST: Bilaterally symmetrical. HEART: S1, S2 positive. LUNGS: Clear to auscultation. ABDOMEN: Soft. Bowel sounds present. No organomegaly. EXTREMITIES: No edema, no cyanosis. NEUROLOGIC: The patient is awake, alert, moving all 4 extremities. No focal deficits. MEDICATIONS: DuoNeb, heparin, insulin, Lopressor, Cipro, Protonix, Rocephin, NS , Tylenol. LABORATORY DATA: We do not have recent labs today, but I reviewed old labs. ASSESSMENT AND PLAN: The patient is a 70-year-old male with anemia, diabetes mellitus, proteinuria, hematuria, urinary tract infection. Seen by Dr. Sheldon, infectious disease. The patient has history of coronary artery disease, peripheral vascular disease, hypercholesterolemia, gastroesophageal reflux disease, dyspepsia, obesity, history of weight lost, bipolar, iron deficiency, coronary artery bypass graft 2-vessel angioplasty. Left ureter catheter is replaced and right ureter catheter replacement. Urine shows gram-positive cocci growth. Supportive care. Continue Rocephin but patient appears comfortable. Cultures may be sign of colonization of the area. Local wound care. Awaiting for the culture. Supportive care. Appreciated Dr. Sheldon's input. Gastrointestinal, deep venous thrombosis prophylaxis. Repeat labs. We will follow up. Salima Lin MD cc: [id number] TT: 06/16/2016 00:17:42 Confirmation # [id number] Dictation # [id number] [email or web address]
[2016-06-16] MEDS: Pantoprazole 40 mg EC Tab PO SCH (06:07)
[2016-06-16 07:36] LABS: MEAN CORPUSCULAR HEMOGLOBIN 30.9 pg (25.0-35.0); MEAN CORPUSCULAR HGB CONC 32.9 g/dl (31.0-37.0); MEAN PLATELET VOLUME 8.7 fl (7.0-11.0); RED CELL DISTRIBUTION WIDTH 13.2 % (11.5-14.5); WHITE BLOOD COUNT 4.5 10^3/ul (4.5-11.0)
[2016-06-16 07:39] LABS: HEMATOCRIT 23.4 % (42.0-52.0)
[2016-06-16 07:45] LABS: POTASSIUM 3.9 mmol/L (3.6-5.0)
[2016-06-16] MEDS: cefTRIAXone 1 gm 1 GM/100 ML BAG IVPB SCH (10:03)
[2016-06-16] MEDS: Insulin Lispro (humaLOG) MEDIUM Coverage SC SCH ×5 (10:05→22:17)
[2016-06-16 11:30] LABS: ALB/GLOB RATIO 0.7 (1.1-1.8); BILIRUBIN,DIRECT 0.6 mg/dL (0.0-0.4); BILIRUBIN,TOTAL 0.6 mg/dL (0.2-1.3); TOTAL PROTEIN 6.6 g/dL (5.8-8.3)
--- NOTE | 2016-06-16 14:39 | CP.PCM.PN ---
Subjective - Date & Time of Evaluation Date of Evaluation: 06/16/16 Time of Evaluation: 09:50 - Subjective Subjective: Pt is anemic,has orders for blood transfusion,needs consent for the same, Objective - Vital Signs/Intake and Output Vital Signs (last 24 hours): Temp Pulse Resp BP Pulse Ox 98 F 66 20 111/62 98 06/16/16 08:00 06/16/16 10:02 06/16/16 08:00 06/16/16 10:02 06/16/16 08:00 Intake and Output: 06/16/16 06/16/16 06:59 18:59 Intake Total 480 Output Total 700 Balance -220 - Medications Medications: Current Medications Acetaminophen (Tylenol 325mg Tab) 650 mg PO Q6H PRN PRN Reason: elevated temp 101 Albuterol/Ipratropium (Duoneb 3 Mg/0.5 Mg (3 Ml) Ud) 3 ml IH [id number] PRN PRN Reason: Shortness of Breath Cyproheptadine HCl (Periactin) 4 mg PO DAILY [facility] Last Admin: 06/16/16 10:02 Dose: 4 mg Heparin Sodium (Porcine) (Heparin) 5,000 units SC Q12 EMILY PRN Reason: Protocol Last Admin: 06/16/16 10:03 Dose: 5,000 units Sodium Chloride (Sodium Chloride 0.45%) 1,000 mls @ 70 mls/hr IV .[id number] [facility] Insulin Human Lispro (Humalog Med) 0 units SC ACHS [facility] PRN Reason: Protocol Last Admin: 06/16/16 12:18 Dose: 173 units Metoprolol Tartrate (Lopressor) 25 mg PO BID [facility] Last Admin: 06/16/16 10:02 Dose: 25 mg Pantoprazole Sodium (Protonix Ec Tab) 40 mg PO 0630 [facility] Last Admin: 06/16/16 06:07 Dose: 40 mg Trimethoprim/Sulfamethoxazole (Bactrim Ds Tab) 1 tab PO BID [facility] PRN Reason: Protocol Stop: 06/26/16 18:01 - Labs Labs: 06/16/16 07:00 06/16/16 07:00 - Constitutional Appears: No Acute Distress, Other (Oriented x 3) Assessment and Plan - Assessment and Plan (Free Text) Assessment: Anemia Plan: Explained to patient about his anemic state,the need for blood transfusion and it's risks and benefits. Pt states he understood what he was told,then signed consent for the same.
--- NOTE | 2016-06-16 14:43 | PN ---
DATE: 06/16/2016 This 70-year-old male was examined at his bedside and his case was reviewed in detail with his nurse, Mervat Curiel, registered nurse. At present, the patient has a urine culture that is growing M RSA and a re-eval with Dr. Jb Sheldon from infectious disease is pending. The patient is status post Egan catheter replacement, left ureteral stent replacement and newly placed right ureteral stent pl acement in the setting of hydronephrosis, hyperkalemia and stage IV chronic renal failure. The patie nt did indeed receive dosing with Kayexalate and, of note, today's potassium is 3.9. The patient is alert and responsive. He is eating and drinking food and fluids and denying any chest pain or shortn ess of breath. A consultation with Dr. Leonardo from GI is pending regarding elevated alkaline phosp hatase and GGTP. Of note, the patient has anemia of chronic disease, and with IV hydration his hemog lobin has fallen from 8.9 to 7.7. He is being readied for an IV blood cell transfusion given his ath erosclerotic heart disease and congestive heart failure. PHYSICAL EXAMINATION: VITAL SIGNS: Temperature is 98, respirations 20, pulse 66, blood pressure 111/62 with a pulse ox of 98% on room air. HEAD: Normocephalic, atraumatic. EYES: Show no icterus. EARS: Clear. THROAT: Noninjected. NECK: Supple. HEART: Regular S1, S2. LUNGS: Without wheezing. ABDOMEN: Soft. EXTREMITIES: No edema. SKIN: Without rash. NEUROLOGIC: Unchanged. PSYCHOLOGICAL: Alert. VASCULAR: Legs warm to touch. LABORATORY DATA: White count 4500, hemoglobin 7.7, hematocrit 23.4, platelets 181,000. Sodium 132, K 3.9, chloride 102, bicarbonate 21, BUN 55, creatinine 3.6, estimated GFR 17 mL per minute. Random blood sugar 218. GGTP 91, AST 19, ALT 30, alkaline phosphatase elevated at 135, bilirubin 0.6. Micr obiology reports show blood cultures with no growth and urine culture with MRSA. IMPRESSION: A 70-year-old male with chronic renal failure stage IV, anemia of chronic disease, admit alexis with hydronephrosis and need for Egan catheter and bilateral renal stenting of his ureters with hyperkalemia resolved, chronic obstructive pulmonary disease, bedridden status, type 2 diabetes shannon messer insulin-dependent, history of hypertension and peptic ulcer disease, now with elevated alkaline p hosphatase and history of cholelithiasis. PLAN: At present is to stop IV fluids since patient is eating and drinking adequately and to avoid v olume overload. The patient will continue on his pulmonary toiletry, subcutaneous heparin, regular i nsulin coverage a.c. meals and at bedtime, metoprolol tartrate 25 mg b.i.d. and Protonix 40 mg p.o. d aily. He will receive blood cell transfusion. Is scheduled for a basic metabolic panel and CBC in t he a.m. Is awaiting evaluation by Dr. Leonardo from GI and is being followed by Dr. Marcus Rodríguez who will be placing a PICC line, Dr. Jb Sheldon regarding his MRSA in the urine, Dr. Haresh donato rding his neurological issues, and Dr. Salima Lin his primary care physician. As always, his ove rall prognosis remains poor. Greater than 50 minutes was spent in the care, coordination of care and review of care with this patient and his nurse at the bedside. Cindy Be MD cc: [id number] TT: 06/16/2016 14:42:42 Confirmation # [id number] Dictation # [id number] [email or web address]
--- NOTE | 2016-06-16 15:01 | CP.PCM.PN ---
Subjective - Date & Time of Evaluation Date of Evaluation: 06/16/16 Time of Evaluation: 14:20 - Subjective Subjective: Patient has very poor veins,needs iv access (he has a line in the foot that was inserted 3days ago,needs another one for blood transfusion) Objective - Vital Signs/Intake and Output Vital Signs (last 24 hours): Temp Pulse Resp BP Pulse Ox 98 F 66 20 111/62 98 06/16/16 08:00 06/16/16 10:02 06/16/16 08:00 06/16/16 10:02 06/16/16 08:00 Intake and Output: 06/16/16 06/16/16 06:59 18:59 Intake Total 480 Output Total 700 Balance -220 - Medications Medications: Current Medications Acetaminophen (Tylenol 325mg Tab) 650 mg PO Q6H PRN PRN Reason: elevated temp 101 Albuterol/Ipratropium (Duoneb 3 Mg/0.5 Mg (3 Ml) Ud) 3 ml IH [id number] PRN PRN Reason: Shortness of Breath Cyproheptadine HCl (Periactin) 4 mg PO DAILY [facility] Last Admin: 06/16/16 10:02 Dose: 4 mg Heparin Sodium (Porcine) (Heparin) 5,000 units SC Q12 [facility] PRN Reason: Protocol Last Admin: 06/16/16 10:03 Dose: 5,000 units Insulin Human Lispro (Humalog Med) 0 units SC ACHS [facility] PRN Reason: Protocol Last Admin: 06/16/16 12:18 Dose: 173 units Metoprolol Tartrate (Lopressor) 25 mg PO BID [facility] Last Admin: 06/16/16 10:02 Dose: 25 mg Pantoprazole Sodium (Protonix Ec Tab) 40 mg PO 0630 [facility] Last Admin: 06/16/16 06:07 Dose: 40 mg Trimethoprim/Sulfamethoxazole (Bactrim Ds Tab) 1 tab PO BID [facility] PRN Reason: Protocol Stop: 06/26/16 18:01 - Labs Labs: 06/16/16 07:00 06/16/16 07:00 - Constitutional Appears: No Acute Distress, Other (oriented x 3) Assessment and Plan - Assessment and Plan (Free Text) Assessment: Poor venous access Plan: Unable to insert hep lock due to very poor veins. Patient does not want a line in his neck. Dr Lin was notified. She ordered a Picc line.
[2016-06-16] MEDS ORDERED: Lidocaine 2% Inj (20ml) ONE (15:43)
[2016-06-16] MEDS: Tmp-Smz 800 mg-160 mg DS Tab PO SCH (17:22)
--- NOTE | 2016-06-16 17:32 | VASCULAR ---
PROCEDURE: Ultrasound and fluoroscopically placed left upper extremity PICC line. HISTORY: Hydronephrosis. Hematuria. Sepsis. Needs PICC line. PHYSICIAN(S): Marcus Rodríguez MD. TECHNIQUE: The relative risks and indications of the procedure were explained to the patient's family and consent obtained. The patient was placed supine on the arteriogram table and the left arm prepped and draped in the usual sterile fashion. A tourniquet was applied to the left axilla. 1% Xylocaine was used to anesthetize the skin and soft tissues at the puncture site above the elbow. The left basilic vein was punctured under direct ultrasound guidance with a micropuncture set. A 0.018 guidewire was advanced centrally and used to measure the length to the SVC/RA junction. A 5 [place] single-lumen PICC line 42 cm long was advanced to the SVC/RA junction. The catheter was flushed and secured. The patient tolerated the procedure well. IMPRESSION: 1. Ultrasound and fluoroscopically placed left upper extremity PICC line. A 5 [place] single-lumen PICC line 42 cm long was advanced to the SVC/RA junction.
--- NOTE | 2016-06-16 17:41 | CP.PCM.PN ---
Subjective - Date & Time of Evaluation Date of Evaluation: 06/16/16 Time of Evaluation: 16:15 - Subjective Subjective: Infectious Disease Consultation: June 16, 2016 70 yo male brought in from [facility] ) for OR replacement of catheter, replacement of left ureteral stent, and new placement of right ureteral stent in setting of hydronephrosis. Patient does not appear to be in any distress. Group B strep seen in cultures of the area. MRSA in the urine cultures. Objective - Vital Signs/Intake and Output Vital Signs (last 24 hours): Temp Pulse Resp BP Pulse Ox 97.9 F 61 20 111/65 100 06/16/16 15:34 06/16/16 17:22 06/16/16 15:34 06/16/16 17:22 06/16/16 15:34 Intake and Output: 06/16/16 06/16/16 06:59 18:59 Intake Total 480 Output Total 700 Balance -220 - Medications Medications: Current Medications Acetaminophen (Tylenol 325mg Tab) 650 mg PO Q6H PRN PRN Reason: elevated temp 101 Albuterol/Ipratropium (Duoneb 3 Mg/0.5 Mg (3 Ml) Ud) 3 ml IH [id number] PRN PRN Reason: Shortness of Breath Cyproheptadine HCl (Periactin) 4 mg PO DAILY COUNT INCLUDES THE [facility] Last Admin: 06/16/16 10:02 Dose: 4 mg Heparin Sodium (Porcine) (Heparin) 5,000 units SC Q12 [facility]ILY PRN Reason: Protocol Last Admin: 06/16/16 10:03 Dose: 5,000 units Insulin Human Lispro (Humalog Med) 0 units SC ACHS [facility] PRN Reason: Protocol Last Admin: 06/16/16 17:22 Dose: 3 units Metoprolol Tartrate (Lopressor) 25 mg PO BID COUNT INCLUDES THE [facility] Last Admin: 06/16/16 17:22 Dose: 25 mg Pantoprazole Sodium (Protonix Ec Tab) 40 mg PO 0630 COUNT INCLUDES THE [facility] Last Admin: 06/16/16 06:07 Dose: 40 mg Trimethoprim/Sulfamethoxazole (Bactrim Ds Tab) 1 tab PO BID [facility] PRN Reason: Protocol Stop: 06/26/16 18:01 Last Admin: 06/16/16 17:22 Dose: 1 tab - Labs Labs: 06/16/16 07:00 06/16/16 07:00 - Constitutional Appears: Non-toxic, No Acute Distress, Chronically Ill - Head Exam Head Exam: ATRAUMATIC, NORMOCEPHALIC - Eye Exam Eye Exam: EOMI, PERRL Pupil Exam: NORMAL ACCOMODATION, PERRL - ENT Exam ENT Exam: Mucous Membranes Moist, Normal External Ear Exam, TM's Normal Bilaterally - Neck Exam Neck Exam: Full ROM, Normal Inspection - Respiratory Exam Respiratory Exam: Clear to Ausculation Bilateral, NORMAL BREATHING PATTERN. absent: Rales, Rhonchi, Wheezes - Cardiovascular Exam Cardiovascular Exam: REGULAR RHYTHM, RRR, +S1, +S2 - GI/Abdominal Exam GI & Abdominal Exam: Soft, Normal Bowel Sounds. absent: Distended, Tenderness - Extremities Exam Extremities Exam: Full ROM, Normal Inspection - Neurological Exam Neurological Exam: Alert, Awake, CN II-XII Intact, Oriented x3 - Psychiatric Exam Psychiatric exam: Normal Affect, Normal Mood - Skin Skin Exam: Intact, Normal Color Assessment and Plan - Assessment and Plan (Free Text) Assessment: 70 yo male admitted after catheter change, left ureteral stent replacement, and right ureteral stent placement. Culture of urine showing gram positive cocci growth. Supportive care. Currently on Rocephin but patient appears comfortable. Culture may be a sign of colonization of the area. Local wound care. Awaiting cultures. Supportive care. Urine culture showing MRSA. Bactrim DS started for coverage. Ceftriaxone stopped. 10 day course of Bactrim DS orally will cover MRSA infection. Thank you for allowing me to participate in the care of this patient, we will follow with you.
--- NOTE | 2016-06-17 06:18 | CON ---
DATE: 06/16/2016 ADDENDUM Error Please see other dictation cc: [id number] TT: 06/17/2016 06:17:48 Confirmation # [id number] Dictation # [id number] dn MTDD
[2016-06-17] MEDS: Pantoprazole 40 mg EC Tab PO SCH (06:44)
--- NOTE | 2016-06-17 07:09 | PN ---
DATE: 06/16/2016 SUBJECTIVE: The patient seen and examined on the bedside, looks comfortable. House physician, Luci Sanford, was on the bedside also. Nurse was on the bedside also, getting consent from the patient fo r blood transfusion and getting IV line on him was problem. That is why we decided to make a PICC li ne. The patient does not have fever. No shortness of breath. No nausea, vomiting, or diarrhea, but was feeling fatigue and tired. PHYSICAL EXAMINATION: VITAL SIGNS: Temperature 98, respiratory rate 20, pulse 66, blood pressure 111/52, pulse oximetry 98 % on room air. HEENT: Head normocephalic, atraumatic. Eyes: PERRLA. Extraocular movements intact. Conjunctivae pink. Eyelids unremarkable. Nose patent. Mucous membranes moist. NECK: Supple. No carotid bruit, JVD or thyromegaly. CHEST: Bilaterally symmetrical. HEART: S1, S2 positive. LUNGS: Clear to auscultation. ABDOMEN: Soft. Bowel sounds present. No organomegaly. EXTREMITIES: No edema, no cyanosis. NEUROLOGIC: The patient is awake, alert, moving all 4 extremities. No focal deficit. LABORATORY DATA: White blood cells are 4500, hemoglobin 7.7, hematocrit 22.4, platelets 181,000. So dium 132, potassium 3.9, BUN 55, creatinine 3.6, random blood sugar is 218, AST 19, ALT 30. ASSESSMENT AND PLAN: The patient is a 70-year-old male with multiple medical problems with severe an emia, transfusing 2 units of packed RBC. PICC put in for IV access. Has renal insufficiency, stage IV, hydronephrosis, need for Egan catheter and bilateral stenting of his ureters and hyperkalemia, r esolved, chronic obstructive pulmonary disease. Bedridden, diabetes mellitus type 2, [id number] uiring, history of hypertension, peptic ulcer disease, history of cholelithiasis. The patient is eat ing well and drinking adequately, so Dr. Cindy Be stopped the IV fluid because to avoid volume overload in addition to the patient will get packed RBC. Continue subcutaneous heparin, insulin cove rage, metoprolol for blood pressure, Protonix for gastrointestinal prophylaxis. Repeat labs tomorro w, especially for hemoglobin and hematocrit. Dr. Marcus Rodríguez put a PICC line. The patient has methi cillin-resistant Staphylococcus aureus in the urine. Infectious disease consult called. Dr. Eva Be's notes reviewed. Gastrointestinal and deep venous thrombosis prophylaxis. Repeat labs. We will follow up. Salima Lin MD cc: [id number] TT: 06/17/2016 07:09:06 Confirmation # [id number] Dictation # [id number] tn
[2016-06-17 07:12] LABS: HEMATOCRIT 29.8 % (42.0-52.0); MEAN CELL VOLUME 89.5 fL (80.0-105.0); MEAN CORPUSCULAR HEMOGLOBIN 29.7 pg (25.0-35.0); MEAN CORPUSCULAR HGB CONC 33.2 g/dl (31.0-37.0); MEAN PLATELET VOLUME 8.7 fl (7.0-11.0); RED CELL DISTRIBUTION WIDTH 15.3 % (11.5-14.5); WHITE BLOOD COUNT 5.7 10^3/ul (4.5-11.0)
[2016-06-17 07:18] LABS: ALB/GLOB RATIO 0.8 (1.1-1.8); BILIRUBIN,TOTAL 0.8 mg/dL (0.2-1.3); CALCIUM 8.2 mg/dL (8.4-10.5); POTASSIUM 3.6 mmol/L (3.6-5.0); TOTAL PROTEIN 6.8 g/dL (5.8-8.3)
--- NOTE | 2016-06-17 08:31 | CON ---
DATE: 06/16/2016 ADDENDUM: This is an addendum to the GI consultation report dictated by Liliana Whitfield NP. The patient was seen and evaluated earlier today. The patient does have ALK which is slightly mildly elevated. . O/E ABDOMEN: Soft. There is no tenderness present. The reasonable thing at this point is to get for us isoenzymes. Also, request for ultrasound scan of the abdomen. We will continue to closely follow up his care and suggest further recommendation based on the clinical course. Gloria Leonardo MD cc: [id number] TT: 06/17/2016 08:31:20 Confirmation # [id number] Dictation # [id number] jn KAREN
[2016-06-17] MEDS: Tmp-Smz 800 mg-160 mg DS Tab PO SCH ×2 (09:20→18:28)
[2016-06-17] MEDS: Insulin Lispro (humaLOG) MEDIUM Coverage SC SCH ×3 (09:22→23:12)
--- NOTE | 2016-06-17 11:29 | US ---
HISTORY: elevated alk phos COMPARISON: Comparison made with CT scan of the abdomen and pelvis 05/10/2016 as well as prior renal ultrasound 05/05/2016. TECHNIQUE: Sonographic evaluation of the abdomen. Study is limited due to bowel gas FINDINGS: LIVER: Measures 12.6 cm. Increased echogenicity of the liver parenchyma consistent with fatty infiltration however other infiltrative hepatocellular disease process not excluded. . No mass. No intrahepatic bile duct dilatation. No ascites seen GALLBLADDER: Intraluminal gallbladder calculi are present. No evidence of pericholecystic fluid collection or sonographic Monroe sign. COMMON BILE DUCT: Measures 3.6 mm. No stones. No dilatation. PANCREAS: Pancreas is not visualized on this exam RIGHT KIDNEY: Measures 10.6 x 4.1 x 5.3cm. Normal echogenicity. No calculus, mass, or hydronephrosis. LEFT KIDNEY: Measures 10.3 x 4.8 x 5.2cm. Previously noted left ureteral stent is not seen with certainty on this exam. No evidence of significant hydronephrosis SPLEEN: The spleen is mildly enlarged measuring 14 cm in greatest dimension. No splenic mass collection or calcification seen. AORTA: No aneurysmal dilatation. IVC: Unremarkable. OTHER FINDINGS: None. IMPRESSION: Findings consistent with mild fatty hepatic infiltration however other infiltrative hepatocellular disease process not excluded. Mild splenomegaly. Previously noted left ureteral stent which was visible on CT scan 05/10/2016 not seen on this exam.
--- NOTE | 2016-06-17 13:06 | PN ---
DATE: 06/17/2016 This 70-year-old male was examined at his bedside. His case was reviewed in detail with his nurse, Helio Parra. I have asked nurse Aida to call Dr. Gloria Leonardo regarding his elevated liver function testing today including AST 74, ALT 85, alkaline phosphatase 366 with a bilirubin of 0.8. On questioning the patient he denies any fever, chills, abdominal pain, nausea or vomiting and completed his lunch without incident. PHYSICAL EXAMINATION: VITAL SIGNS: Temperature is 97.7, respirations 18, pulse 66 and blood pressure 129/79 with a pulse ox of 100% room air. HEAD: Normocephalic, atraumatic. EYES: No icterus. EARS: Clear. THROAT: Noninjected. NECK: Supple. HEART: S1, S2. LUNGS: Clear. ABDOMEN: Soft. EXTREMITIES: No edema. SKIN: Without rash. NEUROLOGIC: Intact. PSYCHOLOGICAL: Alert. VASCULAR: Plavix warm to touch. LABORATORY DATA: Sodium 133, K 3.6, chloride 101, bicarbonate 21, BUN 51, creatinine 3.3, random blood sugar is 103. Again, his bilirubin 0.8, AST 74, ALT 85, alkaline phosphatase 366, white count 5700, hemoglobin 9.9, hematocrit 29.8, platelets 155,000. IMPRESSION: A 70-year-old male with chronic renal failure, stage IV, admitted with hyperkalemia in the setting of hydronephrosis who has undergone Egan catheter replacement and a left ureteral stent replacement and a right ureteral stent placement, also with comorbidities of chronic obstructive pulmonary disease, anemia of chronic disease, elevated LFTs, old stroke, right arm contracture, right hemiplegia, bedridden status, insulin-dependent diabetes mellitus, chronic hypertension and peptic ulcer disease. PLAN: At present is for followup with Dr. Gloria Leonardo from GI regarding elevated liver function testing and elevated alkaline phosphatase. The patient has MRSA in his urine and has been ordered to receive Bactrim b.i.d. for [address] Jb Sheldon from infectious disease. He is on isolation precautions. He is tolerating diet and medication well. His IV fluids have been discontinued. He continues on metoprolol tartrate, oral Protonix, subcutaneous heparin. The patient will have his basic metabolic panels monitored and clinical workup is in progress. Cindy Be MD cc: [id number] TT: 06/17/2016 13:06:06 Confirmation # [id number] Dictation # [id number] jn MTDD
--- NOTE | 2016-06-17 14:42 | CON ---
DATE: 06/16/2016 Seen and examined at the bedside earlier this afternoon. Chart was reviewed. REQUEST FOR CONSULT: For elevated alkaline phosphatase. HISTORY OF PRESENT ILLNESS: This is a 70-year-old male with a past medical history of CVA, CHF, hype rtension, anemia and renal insufficiency, came from [facility], was brought to the hospital for c hanging of stent. The patient has history of hydronephrosis. He previously had stent placements on both the right and left side as well as replacement of his Egan catheter. The other day he had a [facility] ureteral stent placement by Dr. Waters. On evaluation of patient's lab, the patient was noted t o have elevated alkaline phosphatase. This patient is known to us from a previous admission on 05/10, we were asked to see him for anemia. The patient had a CT scan of abdomen and pelvis done. T he CT scan showed constipation without fecal obstruction or obstruction. There was some thickening o f the rectum, likely related to under-distention. Currently, the patient denies any abdominal pain. No nausea, vomiting, shortness of breath or chest pain. He denies any change in bowel habits and re ports that he has a good appetite. He just finished eating lunch and his whole plate was clean. PAST MEDICAL HISTORY: CVA with right-sided weakness, hypertension, COPD, congestive heart failure, d iabetes mellitus, chronic anemia, history of peptic ulcer disease and chronic renal failure stage IV with bilateral hydronephrosis. He has BPH and history of UTI. PAST SURGICAL HISTORY: He has ureteral stents, had a bypass. FAMILY HISTORY: Noncontributory at this time. SOCIAL HISTORY: Former smoker. Denies ETOH or substance abuse. MEDICATIONS: Reviewed as per MAR. REVIEW OF SYSTEMS: Systems reviewed with positive findings, see HPI. VITAL SIGNS: Temperature is 97.9, blood pressure is 111/65, pulse 61, respirations 20, and 100% on r oom air. PHYSICAL EXAMINATION: HEENT: Sclerae is anicteric. NECK: Supple. CARDIAC: S1, S2. LUNGS: Sounds are clear. ABDOMEN: With bowel sounds, soft. Does not appear distended and is nontender on palpation. No rebo und, guarding, or organomegaly. EXTREMITIES: No edema. NEUROLOGIC: The patient is awake, he is alert. He has positive garbled speech. He does have some r ight-sided facial droop with right leg is flaccid and right arm is contracted. ASSESSMENT: A 70-year-old male with history of cerebrovascular accident, right-sided weakness, hist ory of chronic renal disease and history of BPH, hydronephrosis, status post left ureteral stent plac ement and right ureteral stent placement and Egan catheter changed, noted to have elevated alkaline phosphatase. Rule out any gallstones, gallbladder pathology. History of hypotension, hyperlipidemia, insulin-dependent diabetes and cerebrovascular accident with right-sided weakness as well as chronic anemia. PLAN: We will request for an abdominal ultrasound. Monitor LFTs. He is going to get a blood transf usion of 2 units of packed RBCs. Continue GI prophylaxis on Protonix. The patient is also getting h eparin subcutaneous. Thank you for this consult and for allowing us to participate in your patient's care. We will make f dimitry recommendation based upon the patient's clinical course. The patient was seen and case discus sed with Dr. Leonardo. Liliana FREDERICK cc: [phone] TT: 06/16/2016 20:59:23 Confirmation # [id number] Dictation # [id number] sn
--- NOTE | 2016-06-17 17:18 | CP.PCM.PN ---
Subjective - Date & Time of Evaluation Date of Evaluation: 06/17/16 Time of Evaluation: 16:15 - Subjective Subjective: Infectious Disease Follow Up: June 17, 2016 70 yo male brought in from [facility] ) for OR replacement of catheter, replacement of left ureteral stent, and new placement of right ureteral stent in setting of hydronephrosis. Patient does not appear to be in any distress. Group B strep seen in cultures of the area. MRSA in the urine cultures. Continuing on Bactrim DS PO BID for total of 10 days of treatment. Noted that there was an increase in the LFTs today. The patient AST is 74 and ALT is 85. Objective - Vital Signs/Intake and Output Vital Signs (last 24 hours): Temp Pulse Resp BP Pulse Ox 97.7 F 110 H 18 117/75 100 06/17/16 07:30 06/17/16 09:20 06/17/16 07:30 06/17/16 09:20 06/17/16 07:30 Intake and Output: 06/17/16 06/17/16 06:59 18:59 Intake Total 945 650 Output Total 700 600 Balance 245 50 - Medications Medications: Current Medications Acetaminophen (Tylenol 325mg Tab) 650 mg PO Q6H PRN PRN Reason: elevated temp 101 Albuterol/Ipratropium (Duoneb 3 Mg/0.5 Mg (3 Ml) Ud) 3 ml IH [id number] PRN PRN Reason: Shortness of Breath Cyproheptadine HCl (Periactin) 4 mg PO DAILY [facility] Last Admin: 06/17/16 09:20 Dose: 4 mg Heparin Sodium (Porcine) (Heparin) 5,000 units SC Q12 EMILY PRN Reason: Protocol Last Admin: 06/17/16 09:21 Dose: 5,000 units Insulin Human Lispro (Humalog Med) 0 units SC ACHS [facility] PRN Reason: Protocol Last Admin: 06/17/16 16:01 Dose: 3 units Metoprolol Tartrate (Lopressor) 25 mg PO BID [facility] Last Admin: 06/17/16 09:20 Dose: 25 mg Pantoprazole Sodium (Protonix Ec Tab) 40 mg PO 0630 [facility] Last Admin: 06/17/16 06:44 Dose: 40 mg Trimethoprim/Sulfamethoxazole (Bactrim Ds Tab) 1 tab PO BID [facility] PRN Reason: Protocol Stop: 06/26/16 18:01 Last Admin: 06/17/16 09:20 Dose: 1 tab - Labs Labs: 06/17/16 06:45 06/17/16 06:45 - Constitutional Appears: Non-toxic, No Acute Distress, Chronically Ill - Head Exam Head Exam: ATRAUMATIC, NORMOCEPHALIC - Eye Exam Eye Exam: EOMI, PERRL Pupil Exam: NORMAL ACCOMODATION, PERRL - ENT Exam ENT Exam: Mucous Membranes Moist, Normal External Ear Exam, TM's Normal Bilaterally - Neck Exam Neck Exam: Full ROM, Normal Inspection - Respiratory Exam Respiratory Exam: Clear to Ausculation Bilateral, NORMAL BREATHING PATTERN. absent: Rales, Rhonchi, Wheezes - Cardiovascular Exam Cardiovascular Exam: REGULAR RHYTHM, RRR, +S1, +S2 - GI/Abdominal Exam GI & Abdominal Exam: Soft, Normal Bowel Sounds. absent: Distended, Tenderness - Extremities Exam Extremities Exam: Full ROM, Normal Inspection - Neurological Exam Neurological Exam: Alert, Awake, CN II-XII Intact, Oriented x3 - Psychiatric Exam Psychiatric exam: Normal Affect, Normal Mood - Skin Skin Exam: Intact, Normal Color Assessment and Plan - Assessment and Plan (Free Text) Assessment: 70 yo male admitted after catheter change, left ureteral stent replacement, and right ureteral stent placement. Culture of urine showing gram positive cocci growth. Supportive care. Currently on Rocephin but patient appears comfortable. Culture may be a sign of colonization of the area. Local wound care. Awaiting cultures. Supportive care. Urine culture showing MRSA. Bactrim DS started for coverage. Ceftriaxone stopped. 10 day course of Bactrim DS orally will cover MRSA UTI. There is a small possibility that the trimethoprim component of Bactrim may cause significant elevation of ALT and AST. Elevations of up to twice the normal ALT and AST are not uncommon with trimethoprim. Would be concerned if the transaminases elevated past a multiple of 3 times normal. Continue to track ALT and AST trend. Thank you for allowing me to participate in the care of this patient, we will follow with you.
--- NOTE | 2016-06-18 00:15 | PCM.URO ---
Urology Progress Note - Objective Lab Results Last 24 Hours: Laboratory Results - last 24 hr 06/16/16 06/17/16 06/17/16 16:50 06:45 06:45 WBC 5.7 D RBC 3.33 L Hgb 9.9 L Hct 29.8 L MCV 89.5 MCH 29.7 MCHC 33.2 RDW 15.3 H Plt Count 155 MPV 8.7 Sodium 133 Potassium 3.6 Chloride 101 Carbon Dioxide 21 Anion Gap 15 BUN 51 H Creatinine 3.3 H Est GFR ( Amer) 23 Est GFR (Non-Af Amer) 19 Random Glucose 103 Calcium 8.2 L Total Bilirubin 0.8 AST 74 H ALT 85 H Alkaline Phosphatase 366 H Total Protein 6.8 Albumin 3.0 Globulin 3.8 Albumin/Globulin Ratio 0.8 L Crossmatch See Detail Intake & Output: Intake & Output 06/17/16 06/17/16 06/18/16 06:59 18:59 06:59 Intake Total 945 650 420 Output Total 700 600 900 Balance 245 50 -480 Intake: Oral 540 420 Blood Product 325 650 Red Blood Cells Cpd As1 0 Lr Unit [id number] Red Blood Cells Cpd As1 325 Lr Unit [id number] Other 80 Red Blood Cells Cpd As1 40 Lr Unit [id number] Red Blood Cells Cpd As1 40 Lr Unit [id number] Output: Urine 700 600 900 Urethral (Egan) 700 600 900 Other: # Bowel Movements 1 1 Vital Signs: Vital Signs - 24 hr 06/17/16 06/17/16 06/17/16 00:19 00:20 01:05 Temperature 97.9 F 97.6 F 97.9 F Pulse Rate 57 L 63 59 L Respiratory 18 18 18 Rate Blood Pressure 128/74 123/73 125/80 O2 Sat by Pulse Oximetry 06/17/16 06/17/16 06/17/16 07:30 09:20 16:00 Temperature 97.7 F 98.7 F Pulse Rate 66 110 H 63 Respiratory 18 20 Rate Blood Pressure 129/79 117/75 114/73 O2 Sat by Pulse 100 100 Oximetry 06/17/16 18:28 Temperature Pulse Rate 64 Respiratory Rate Blood Pressure 114/73 O2 Sat by Pulse Oximetry
--- NOTE | 2016-06-18 04:21 | CON ---
DATE: 06/17/2016 REASON FOR CONSULT: Chronic obstructive lung disease, renal insufficiency. HISTORY OF PRESENT ILLNESS: This is a 70-year-old gentleman with history of remote stroke with resid ual upper and lower extremity weakness, diabetes, hypertension, an extensive renal problem with bilat eral ureteral stents across requiring Egan catheter, being followed by Nephrology and GI, lying in t he bed, very quiet. of cough and shortness of breath. No chest pain, no nausea, no vomiting, n o diarrhea, no leg pain or leg swelling. PAST MEDICAL HISTORY: Diabetes, hypertension, previous stroke, oropharyngeal dysphagia; on modified diet, renal failure with renal stents, anemia, status post transfusion. ALLERGIES: None known. SOCIAL HISTORY: Nonsmoker, nondrinker. FAMILY HISTORY: No significant cardiopulmonary disease reported. MEDICATIONS: He is on Bactrim double-strength 1 tablet twice a day, DuoNeb q. 4 hours p.r.n., hepari n 5000 units subQ q. 12 hours, insulin coverage, metoprolol tartrate 25 mg twice a day, Periactin 4 m g daily, Protonix 40 mg daily, Tylenol on p.r.n. basis. REVIEW OF SYSTEMS: No headache, no rhinitis. Has some cough and shortness of breath. No chest pain , no nausea, no vomiting, no diarrhea, no leg pain or leg swelling. PHYSICAL EXAMINATION: GENERAL: In no acute distress. VITAL SIGNS: Temp is 98, heart rate 63, respiratory rate is 20, blood pressure 114/73, pulse ox 100% on room air. HEENT: Moist mucous membranes, crowded airway. NECK: Supple. No JVD. LUNGS: Have fair airflow with a few rhonchi. HEART: S1, S2. ABDOMEN: Soft, nontender. No organomegaly. EXTREMITIES: There is no edema. NEUROLOGIC: Awake, alert, does not follow many commands. LABORATORY DATA: Shows hemoglobin 9.9, hematocrit 29.8, WBC 5.7, platelet is 155. INR 1.03, PTT is 26. Sodium 133, potassium 2.6, chloride 101, bicarbonate 21, BUN 51, creatinine 2.3, glucose 103, ca lcium 8.2. AST 74, ALT 85, alk phos 66, albumin is 3.0. Urine culture has MRSA. Had an abdominal u ltrasound done today, which shows mild fatty hepatic infiltrates, mild splenomegaly, left urethral st ents. IMPRESSION AND PLAN: 1. Previous stroke with right residual weakness. 2. Chronic obstructive lung disease. 3. Chronic renal failure. 4. Hydronephrosis, status post left urethral stents, requiring Egan catheter. 5. Hypertension. 6. Hyperlipidemia. 7. Diabetes. From a pulmonary point of view, he is doing okay. We will recommend keeping head elevated at 45 degr ees, sleep apnea precaution, bronchodilator, aspiration precautions. He has UTI. Antibiotics as per Infectious Disease. Follow up electrolytes, follow BUN and creatinin e. Adrienne Vallejo MD cc: [id number] TT: 06/18/2016 04:20:11 Confirmation # [id number] Dictation # [id number] vn
[2016-06-18] MEDS: Pantoprazole 40 mg EC Tab PO SCH (06:26)
[2016-06-18 07:08] LABS: CALCIUM 8.1 mg/dL (8.4-10.5); POTASSIUM 3.2 mmol/L (3.6-5.0)
[2016-06-18 07:14] LABS: INR 1.05 (0.93-1.08)
[2016-06-18] MEDS: Insulin Lispro (humaLOG) MEDIUM Coverage SC SCH ×4 (07:45→21:47)
--- NOTE | 2016-06-18 07:59 | PN ---
DATE: 06/17/2016 The patient is a 70-year-old male. The patient was seen and examined on 2016, looks comfortable. No nausea, vomiting, diarrhea. No fever, no chills, no headache, no dizziness, no abdominal pain. Had lunch, tolerated very well. PHYSICAL EXAMINATION: VITAL SIGNS: Temperature 97.7, respiratory rate 18, pulse 66, blood pressure 129/79. HEENT: Head normocephalic, atraumatic. Eyes: PERRLA. Extraocular muscles intact. Conjunctivae clear. Nose patent. NECK: Supple. No carotid bruit, no JVD, no thyromegaly. CHEST: Bilaterally symmetrical. HEART: S1, S2 positive. LUNGS: Clear to auscultation. ABDOMEN: Soft. Bowel sounds positive. No organomegaly. EXTREMITIES: No edema, no cyanosis. NEUROLOGIC: The patient is awake, alert, moving all 4 extremities. No focal deficit. LABORATORIES: Sodium 133, potassium 3.6, chloride 101, bicarbonate 21, BUN noted , creatinine 3.3, sugar 103, AST 74, ALT 85. White blood count is 57,000. ASSESSMENT AND PLAN: The patient is a 70-year-old male with chronic renal failure stage IV, hyperkalemia, hydronephrosis, had Egan catheter placement, right ureteral stent placement, also with comorbidities of chronic obstructive pulmonary disease, anemia, history of blood transfusion, history of stroke, bedridden, insulin dependent diabetes mellitus, chronic hypertension, peptic ulcer disease. Dr. Leonardo is the parking meter collector on the case for elevated liver function test and elevated alkaline phosphatase. The patient had methicillin-resistant Staphylococcus aureus in his urine. Getting Bactrim [address] Jb Sheldon for infectious disease. The patient is on isolation precautions. Tolerating diet and medication very well. IV fluid discontinued because we do not want to see fluid overload. Continue on metoprolol, Protonix for gastrointestinal prophylaxis. Continue on heparin subcutaneous for deep venous thrombosis prophylaxis. Repeat labs. Appreciated Dr. Cindy Be's input. We will follow up. Salima Lin MD cc: [id number] TT: 06/18/2016 07:59:19 Confirmation # [id number] Dictation # [id number] MTDD
[2016-06-18] MEDS: Tmp-Smz 800 mg-160 mg DS Tab PO SCH ×2 (09:52→17:35)
[2016-06-18] MEDS ORDERED: Potassium Chloride 20 mEq ER Tab PO ONE (11:29)
--- NOTE | 2016-06-18 12:01 | PN ---
DATE: 06/18/2016 This 70-year-old male was examined at his bedside. His case was reviewed with his nurse, Bashir Parra. The patient has been seen by Dr. Leonardo from GI for elevated liver function testing. He has undergone a liver ultrasound that is consistent with fatty liver, and no evidence of cholecystitis was noted on his abdominal ultrasound. The patient denies any chest pain, abdominal pain. There have been no reports of vomiting, fever, or chills. PHYSICAL EXAMINATION: VITAL SIGNS: Temperature is 98.2, respirations 16, pulse 75, and blood pressure 114/62 with a pulse ox of 100% on room air. HEAD: Normocephalic, atraumatic. EYES: No icterus. EARS: Clear. THROAT: Noninjected. NECK: Supple. HEART: S1, S2. LUNGS: Clear. ABDOMEN: Soft, nontender. No palpable organomegaly, no rebound, no guarding, no tenderness. EXTREMITIES: No edema. SKIN: Without rash. NEUROLOGICAL: Chronic right hemiplegia. VASCULAR: Legs warm to touch. PSYCHOLOGICAL: Alert. LABORATORY DATA: White count 5700, hemoglobin 9.9, hematocrit 29.8, platelets 155,000. PT/INR 1.05. Sodium 133, K 3.2, chloride 103, bicarb 21. BUN 48, creatinine 3.6. Random blood sugar was 123. GGTP was elevated at 187. AST 31 , ALT 58, last alk phos 366. Urine culture is showing MRSA. Blood cultures are no growth. IMPRESSION: A 70-year-old male with stage IV chronic renal failure, newly noted hypokalemia, anemia of chronic disease, methicillin-resistant Staphylococcus aureus in his urine, chronic obstructive pulmonary disease, elevated LFTs, history of old stroke, bedridden status, type 2 diabetes mellitus , chronic hypertension with chronic anemia. PLAN: At present is to replace his potassium with 1 dose of K-Dur 20 mEq p.o. now, and we will check his potassium level in the a.m. He continues on Bactrim 1 tablet b.i.d. for 10 days, and he is on MRSA isolation precautions under the direction of Dr. Jb Sheldon from infectious disease. He continues on duo nebulizers for COPD, heparin 5000 units subQ q. 12 for DVT prophylaxis, medium Humalog insulin coverage a.c. meals and at bedtime, metoprolol tartrate 25 mg b.i.d., and Protonix 40 mg p.o. daily. GI workup is under the direction of Dr. Gloria Leonardo, and we will monitor his clinical progress along with urology in the setting of bilateral ureteral stents and Egan catheter placement. Cindy Be MD cc: [id number] TT: 06/18/2016 12:01:21 Confirmation # [id number] Dictation # [id number] jn MTDD
--- NOTE | 2016-06-18 14:21 | CP.PCM.PN ---
Subjective - Date & Time of Evaluation Date of Evaluation: 06/18/16 Time of Evaluation: 12:15 - Subjective Subjective: Infectious Disease Follow Up: June 18, 2016 70 yo male brought in from [facility] ) for OR replacement of catheter, replacement of left ureteral stent, and new placement of right ureteral stent in setting of hydronephrosis. Patient does not appear to be in any distress. Group B strep seen in cultures of the area. MRSA in the urine cultures. Continuing on Bactrim DS PO BID for total of 10 days of treatment. Noted that there was an increase in the LFTs yesterday. The patient AST is 31 and ALT is 58. No new issues. Objective - Vital Signs/Intake and Output Vital Signs (last 24 hours): Temp Pulse Resp BP Pulse Ox 98.2 F 75 16 114/62 100 06/18/16 07:30 06/18/16 09:52 06/18/16 07:30 06/18/16 09:52 06/18/16 07:30 Intake and Output: 06/18/16 06/18/16 06:59 18:59 Intake Total 420 Output Total 900 Balance -480 - Medications Medications: Current Medications Acetaminophen (Tylenol 325mg Tab) 650 mg PO Q6H PRN PRN Reason: elevated temp 101 Albuterol/Ipratropium (Duoneb 3 Mg/0.5 Mg (3 Ml) Ud) 3 ml IH [id number] PRN PRN Reason: Shortness of Breath Cyproheptadine HCl (Periactin) 4 mg PO DAILY [facility] Last Admin: 06/18/16 09:52 Dose: 4 mg Heparin Sodium (Porcine) (Heparin) 5,000 units SC Q12 EMILY PRN Reason: Protocol Last Admin: 06/18/16 09:51 Dose: 5,000 units Insulin Human Lispro (Humalog Med) 0 units SC ACHS EMILY PRN Reason: Protocol Last Admin: 06/18/16 11:53 Dose: 5 units Metoprolol Tartrate (Lopressor) 25 mg PO BID [facility] Last Admin: 06/18/16 09:52 Dose: 25 mg Pantoprazole Sodium (Protonix Ec Tab) 40 mg PO 0630 [facility] Last Admin: 06/18/16 06:26 Dose: 40 mg Trimethoprim/Sulfamethoxazole (Bactrim Ds Tab) 1 tab PO BID [facility] PRN Reason: Protocol Stop: 06/26/16 18:01 Last Admin: 06/18/16 09:52 Dose: 1 tab - Labs Labs: 06/17/16 06:45 06/18/16 06:30 PT 11.3 Seconds (9.9-11.8) 06/18/16 06:30 INR 1.05 (0.93-1.08) 06/18/16 06:30 - Constitutional Appears: Non-toxic, No Acute Distress, Chronically Ill - Head Exam Head Exam: ATRAUMATIC, NORMOCEPHALIC - Eye Exam Eye Exam: EOMI, PERRL Pupil Exam: NORMAL ACCOMODATION, PERRL - ENT Exam ENT Exam: Mucous Membranes Moist, Normal External Ear Exam, TM's Normal Bilaterally - Neck Exam Neck Exam: Full ROM, Normal Inspection - Respiratory Exam Respiratory Exam: Clear to Ausculation Bilateral, NORMAL BREATHING PATTERN. absent: Rales, Rhonchi, Wheezes - Cardiovascular Exam Cardiovascular Exam: REGULAR RHYTHM, RRR, +S1, +S2 - GI/Abdominal Exam GI & Abdominal Exam: Soft, Normal Bowel Sounds. absent: Distended, Tenderness - Extremities Exam Extremities Exam: Full ROM, Normal Inspection - Neurological Exam Neurological Exam: Alert, Awake, CN II-XII Intact, Oriented x3 - Psychiatric Exam Psychiatric exam: Normal Affect, Normal Mood - Skin Skin Exam: Intact, Normal Color Assessment and Plan - Assessment and Plan (Free Text) Assessment: 70 yo male admitted after catheter change, left ureteral stent replacement, and right ureteral stent placement. Culture of urine showing gram positive cocci growth. Supportive care. Currently on Rocephin but patient appears comfortable. Culture may be a sign of colonization of the area. Local wound care. Awaiting cultures. Supportive care. Urine culture showing MRSA. Bactrim DS started for coverage. Ceftriaxone stopped. 10 day course of Bactrim DS orally will cover MRSA UTI. There is a small possibility that the trimethoprim component of Bactrim may cause significant elevation of ALT and AST. Elevations of up to twice the normal ALT and AST are not uncommon with trimethoprim. Would be concerned if the transaminases elevated past a multiple of 3 times normal. Continue to track ALT and AST trend. ALT and AST nearly normalized today. Thank you for allowing me to participate in the care of this patient, we will follow with you.
--- NOTE | 2016-06-18 16:29 | RAD ---
HISTORY: copd COMPARISON: In conjunction with CT scan abdomen and pelvis dated 06/18/2016 which imaged both lung bases. FINDINGS: LUNGS: No acute consolidation study was read PLEURA: No significant pleural effusion identified, no pneumothorax apparent. CARDIOVASCULAR: Sternotomy wires and CABG clips again noted. . Cardiomegaly. OSSEOUS STRUCTURES: No significant abnormalities. VISUALIZED UPPER ABDOMEN: Metallic clips left upper quadrant of the abdomen also unchanged. OTHER FINDINGS: None. IMPRESSION: No acute consolidation
--- NOTE | 2016-06-18 19:26 | CT ---
PROCEDURE: CT Abdomen and pelvis dated 06/18/2016. HISTORY: renal failure COMPARISON: Comparison made with CT scan of the abdomen and pelvis 05/10/2016. TECHNIQUE: Contiguous axial images of the abdomen and pelvis. No oral or intravenous contrast material given. Coronal and Sagittal reformats generated. Radiation dose: Total exam DLP = 1072.6 mGy-cm. This CT exam was performed using one or more of the following dose reduction techniques: Automated exposure control, adjustment of the mA and/or kV according to patient size, and/or use of iterative reconstruction technique. FINDINGS: LOWER THORAX: Mild bibasilar atelectasis. No effusion or basilar pneumothorax. Small hiatal hernia. Heart size is within range of normal. Coronary artery calcifications are present. LIVER: The liver exhibits normal size and attenuation pattern without mass collection or calcification. GALLBLADDER AND BILE DUCTS: Gallbladder appears to be contracted likely due to nonfasting state. multiple tiny intraluminal calculi are less well seen compared prior study. PANCREAS: Pancreas appears somewhat atrophic and fatty replaced. No obvious pancreatic mass or collection. No significant pancreatic ductal dilatation. . SPLEEN: Spleen exhibits normal size. No evidence of splenic mass collection or calcification. ADRENALS: No adrenal lesions. . KIDNEYS AND URETERS: Kidneys exhibit symmetric size. In situ bilateral ureteral stents. Mild dilatation of the renal collecting systems and proximal renal pelves an ureters, right more dilated than the left. There appears to have been slight proximal migration of the distal pigtail component of the ureteral stent, the tip of which also appears to be located either within the intramural portion of the left distal ureter or within just within the lumen of the bladder and probably should be repositioned BLADDER: Urinary bladder is relatively collapsed about unclamped Egan catheter. . . REPRODUCTIVE: Prostate gland appears mildly enlarged. BOWEL: Evaluation of the bowel is somewhat limited due to the lack of oral contrast material. The stomach at is distended with food debris some liquid and air. Visualized loops of small bowel exhibit normal contour and caliber. No evidence of acute mechanical small bowel obstruction. Large amount of stool is seen within cecum to the level of the at hepatic flexure with a large amount of air seen throughout the transverse and proximal ascending colon. Stool is seen throughout the descending colon with large amount of air in the sigmoid to the level of the rectum were large amount of stool is again present. Findings consistent with constipation. Appendix is not seen with certainty on this study. ; there appears to be residual of oral contrast material within the distal small bowel and colon from prior PERITONEUM: Unremarkable. No fluid collection. No free air. LYMPH NODES: Unremarkable. No enlarged lymph nodes. VASCULATURE: Unremarkable. No aortic aneurysm. BONES: A chronic anterior wedge compression fracture of the L1 segment and concave endplate deformity L5 segments unchanged. . OTHER FINDINGS: None. IMPRESSION: Bilateral ureteral stents right-side of which appears coiled within the distal ureter with tip either within the intramural portion of the distal right ureter or just within the bladder lumen. This probably should be repositioned. there is mild dilatation of the both renal pelves and both ureters are right more so than left Findings consistent with constipation. Cholelithiasis. See above discussion for additional findings and details.
--- NOTE | 2016-06-18 20:10 | PN ---
DATE: 06/18/2016 REFERRING PHYSICIAN: Dr. Lin. SUBJECTIVE: He is lying in the bed, head at 45 degrees, sleepy, arousable. No headache, no rhinitis , on a clear liquid diet, no vomiting, no hematuria, no diarrhea, no leg pain or leg swelling. OBJECTIVE: GENERAL: No acute distress. VITAL SIGNS: Temp is 98, heart rate 52, respiratory rate is 16, blood pressure 108/57, pulse ox 99% on room air. HEENT: Moist mucous membranes. Crowded airway. NECK: Supple. No JVD. LUNGS: Has a fair airflow with few rhonchi. HEART: S1, S2. ABDOMEN: Soft, nontender. No organomegaly. EXTREMITIES: There is no edema. NEUROLOGIC: Sleepy, arousable, follows simple command. MEDICATIONS: He is on Bactrim double-strength 1 tab twice a day, DuoNeb q. 4 hours p.r.n., heparin 5 000 units subQ q. 12 hours, insulin coverage, metoprolol tartrate 25 mg twice a day, Periactin 4 mg d aily, Protonix 40 mg daily, Tylenol p.r.n. basis. LABORATORY DATA: Reviewed. INR 1.05. Sodium 133, potassium 3.2, chloride 103, bicarbonate 21, BUN 48, creatinine 3.6, glucose 123, calcium is 8.1, GGT is 187, AST 31, ALT 58, alkaline phosphatase is 275. IMPRESSION AND PLAN: Chronic obstructive lung disease, history of cerebrovascular accident, renal in sufficiency, hydronephrosis, status post urethral stent, hypertension, hyperlipidemia, diabetes. Pul monary point of view, doing okay. Keep head elevated at 45 degrees. Sleep apnea precaution. Carefu l with sedation. Anticoagulation. Followup of BUN and creatinine. Thank you and will follow with y ou. Adrienne Vallejo MD cc: [id number] TT: 06/18/2016 20:10:03 Confirmation # [id number] Dictation # [id number] mn
[2016-06-19 06:05] LABS: HEMATOCRIT 28.6 % (42.0-52.0); MEAN CELL VOLUME 89.1 fL (80.0-105.0); MEAN CORPUSCULAR HEMOGLOBIN 29.9 pg (25.0-35.0); MEAN CORPUSCULAR HGB CONC 33.6 g/dl (31.0-37.0); WHITE BLOOD COUNT 4.7 10^3/ul (4.5-11.0)
[2016-06-19 06:52] LABS: CALCIUM 8.3 mg/dL (8.4-10.5)
--- NOTE | 2016-06-19 07:05 | PN ---
DATE: 06/16/2016 See the previously dictated history and physical and operative report. The patient is currently rest ing comfortably in his bed. Consult notes are noted from medicine and from renal. From urology standpoint, no interim changes. PAST MEDICAL, SURGICAL: All otherwise no changes. PHYSICAL EXAMINATION: GENERAL: The patient is a well-developed, well-nourished male, resting comfortably in his bed. VITAL SIGNS: Noted. ABDOMEN: Relatively soft. GENITOURINARY: Egan catheter is in place draining relatively clear urine. DIAGNOSES: Bilateral hydronephrosis, renal failure, urinary retention, voiding dysfunction. PLAN: As follows: Maintain the Egan. The patient has bilateral stents. Will follow along with inf ectious disease recommendations and medical recommendations and see how the patient does. Right now, we are just waiting for the creatinine to improve somewhat. Haresh Waters MD cc: [id number] TT: 06/19/2016 07:04:28 Confirmation # [id number] Dictation # [id number] jn
[2016-06-19 07:41] VITALS: RESP 18; TEMP 98; O2SAT 100
[2016-06-19] MEDS: Insulin Lispro (humaLOG) MEDIUM Coverage SC SCH ×3 (07:44→17:11)
--- NOTE | 2016-06-19 07:57 | PN ---
DATE: 06/18/2016 The patient is a 70-year-old male. The patient was seen and examined on the bedside, looks comfortab le. No fever, no chills. No nausea, vomiting, diarrhea. No hematuria, no hematochezia. No swellin g of the legs. Does not look like toxic. PHYSICAL EXAMINATION: VITAL SIGNS: Temperature 98, heart rate 52, respiratory rate 16, blood pressure 108/57, pulse oximet er 99% on room air. HEENT: Head normocephalic, atraumatic. Eyes: PERRLA. Extraocular muscles intact. Conjunctivae pi nk. Eyelids unremarkable. Nose patent. Mucous membranes moist. NECK: Supple. No carotid bruit, no JVD, no thyromegaly. CHEST: Bilaterally symmetrical. HEART: S1, S2 positive. LUNGS: Clear to auscultation. ABDOMEN: Soft. Bowel sounds positive. No organomegaly. EXTREMITIES: No edema, no cyanosis. NEUROLOGIC: The patient is awake, alert, moving all 4 extremities. No focal deficits. MEDICATIONS: Bactrim, heparin, insulin coverage, metoprolol, Periactin, Protonix, Tylenol. LABORATORIES: INR is 1.05. Sodium 133, potassium 3.2, BUN 48, creatinine 3.6, AST 31, ALT 58. 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 Careful with sedation. Anticoagulation, continue that. U rologist is on the case. Reviewed Dr. Vallejo's notes, Dr. Sheldon's notes. Currently, getting Rocephin, but appears comfortable. There is a small possibility that trimethoprim component of Bactrim may cau se significant elevation of ALT and AST. Elevation is almost twice the normal of ALT and AST, are no t uncommon with trimethoprim. Would concern if transaminases elevated post multiple of 3 times aimee l. Continue checking ALT and AST. Gastrointestinal and deep venous thrombosis prophylaxis. Repeat labs. We will follow up. Salima Lin MD cc: [id number] TT: 06/19/2016 07:56:32 Confirmation # [id number] Dictation # [id number]
--- NOTE | 2016-06-19 08:47 | PN ---
DATE: 06/17/2016 SUBJECTIVE: This patient was seen and evaluated earlier. The patient is comfortable. PHYSICAL EXAMINATION: GENERAL: The patient is lying on the bed, not in acute distress. VITAL SIGNS: Temperature is 97.2, pulse 78, blood pressure 142/75. VITAL SIGNS: Temperature is 97.7, blood pressure 129/79, pulse 66, the respirations 18. HEENT: Atraumatic, anicteric. NECK: Supple. HEART: S1, S2 heard. LUNGS: Bilateral air entry present. Bilateral normal vesicular breath sounds. ABDOMEN: Soft and there is no mass palpable. No tenderness. EXTREMITIES: No edema and no cyanosis. IMPRESSION: This 70-year-old patient is a halfway resident, was admitted with stent change. Th e patient was found to be anemic and also found to have an elevated alkaline phosphatase of 366, now showing further increase. GI consult was requested to evaluate this. LABORATORY DATA: Alkaline phosphatase jumped from 135 to 366. Transaminases were normal. The mild elevation noticed. AST is 74, ALT is 85. The patient's creatinine is 3.3, BUN 51, hemoglobin is 9.9, hematocrit 29.8, MCV is normal at 89.5. The patient did have an ultrasound scan of the abdom en done. Ultrasound scan of the abdomen showed she had intermittent gallstones present. CBD was nor mal. PLAN: The patient also would request for isoenzymes. We will discuss more likely cause to be consid ered is drug induced etiology to be considered. Another possible source could be due to the bone, bu t GGTP is also mildly elevated. Would consider, his other comorbidities include diabetes mellitus, c hronic kidney disease. Would recommend discontinuing the plan Tylenol and also . We will repea t the GGTP. The patient will consider discontinuing the Bactrim because that could be a contributing factor also, but this was started only last night. The patient did have a dose. We will hold the a .m. dose of Bactrim and we are pending the repeat LFTs. We will continue to closely follow up her ca re and suggest further management based on the clinical course. Gloria Leonardo MD cc: [id number] TT: 06/17/2016 21:41:38 Confirmation # [id number] Dictation # [id number] mn
--- NOTE | 2016-06-19 08:49 | PN ---
DATE: 06/18/2016 ADDENDUM: SUBJECTIVE: This patient was seen and evaluated earlier. The patient is comfortable, no GI complain ts. PHYSICAL EXAMINATION: VITAL SIGNS: Temperature is 97.6, pulse 62, blood pressure 144/62 HEENT: Atraumatic, anicteric. NECK: Supple. HEART: S1, S2 heard. LUNGS: Bilateral air entry present. IMPRESSION: This 70-year-old patient is admitted for elevated left aortic syndrome. The patient ___ __ mainly alkaline phosphatase. Gastrointestinal consult evaluated. PLAN: The patient presently on . The patient's LFTs went up to alkaline phosphatase. Th e patient also has elevated alkaline phosphatase. The patient's numbers went up slightly downw elie without. Closely followup the LFTs. If the shows upward trend, then the patient nee ds to be adjusted. Medication has to be most likely cause to consider. The medications used continu e to be adjusted. We will discuss with regarding this. Thank you very much for allowing us to participate in the care of the patient. The patient also has an ultrasound scan done and there are small present, but common bile duct is non 1 liter with frequent 6 mm, no dilation. IT is reasonable to start the patient also on and Actigall. Gloria Leonardo MD cc: [id number] TT: 06/19/2016 00:08:30 Confirmation # [id number] Dictation # [id number] mn
[2016-06-19] MEDS: Tmp-Smz 800 mg-160 mg DS Tab PO SCH ×2 (09:29→17:12)
[2016-06-19 11:41] LABS: ALB/GLOB RATIO 0.8 (1.1-1.8); BILIRUBIN,DIRECT 0.6 mg/dL (0.0-0.4); BILIRUBIN,TOTAL 0.6 mg/dL (0.2-1.3); TOTAL PROTEIN 6.7 g/dL (5.8-8.3)
--- NOTE | 2016-06-19 11:47 | PN ---
DATE: 06/19/2016 This 70-year-old male was examined at his bedside. He was being groomed by the nurse and nurse's aid e. The patient is alert and denying any chest pain or shortness of breath. He is receiving oral Linda trim for MRSA urinary tract infection and remains on isolation precautions. To date, the patient den ies any fever or chills, has had no vomiting and has persistently elevated liver function testing in the setting of fatty liver and asymptomatic cholelithiasis. He is being followed by Dr. Gloria peace from GI. PHYSICAL EXAMINATION: VITAL SIGNS: At present, his temperature is 98, respirations 18, pulse 55, and blood pressure 102/59 with a pulse ox of 100% on room air. HEAD: Normocephalic, atraumatic. EYES: No icterus. EARS: Clear. THROAT: Noninjected. NECK: Supple. HEART: S1, S2. LUNGS: Clear. ABDOMEN: Soft. No organomegaly, no rebound, no guarding, no tenderness. EXTREMITIES: No clubbing, no cyanosis, no edema. SKIN: Without rash. NEUROLOGIC: Intact. Unchanged. Chronic right hemiplegia, right arm contracture. VASCULAR: Legs warm to touch. LABORATORY DATA: Sodium 136, potassium 4.0, chloride 105, bicarbonate 21, BUN 49, creatinine 3.6, es timated GFR 17 mL per minute. Random blood sugar 111. Yesterday's liver function testing showed GGT P 187, ALT 58, alkaline phosphatase 275. IMPRESSION: A 70-year-old male with chronic renal failure, stage IV, who was admitted by Dr. Haresh Waters from urology for replacement of Egan catheter, replacement of left ureteral stent and a new ly placed right ureteral stent in the setting of bilateral hydronephrosis and chronic renal failure s tage IV, with comorbidities of anemia of chronic disease, methicillin-resistant Staphylococcus aureus urinary tract infection, chronic obstructive pulmonary disease, old stroke, bedridden status, insuli n-dependent diabetes mellitus, chronic hypertension and peptic ulcer disease with gastroesophageal re flux disease, now with elevated liver function testing in the setting of fatty liver and cholelithias is. PLAN: At present is to continue his heart healthy renal diet. He continues on Bactrim 1 tablet b.i. d. for 10 days under the direction of Dr. Jb Sheldon from infectious disease along with isolation pre cautions. He is receiving DuoNeb nebulizers q. 4 hours, heparin 5000 units subQ q. 12, Humalog insul in coverage a.c. meals and at bedtime, metoprolol tartrate 25 mg p.o. b.i.d. and Protonix 40 mg p.o. daily. He will have repeat liver function testing today. He will have GI workup as outlined accordi ng to Dr. Leonardo. He is ordered to have antiembolism stockings daily to be removed at bedtime. Ul timate plan will be to return to [facility] for his longterm care. His overall prognosis remains poor. He is being followed by Dr. Haresh Waters for his urological issues as well. Cindy Be MD cc: [phone] TT: 06/19/2016 11:47:13 Confirmation # [id number] Dictation # [id number] stephanie
--- NOTE | 2016-06-19 14:46 | CP.PCM.PN ---
Subjective - Date & Time of Evaluation Date of Evaluation: 06/19/16 Time of Evaluation: 14:15 - Subjective Subjective: Infectious Disease Follow Up: June 19, 2016 70 yo male brought in from [facility] ) for OR replacement of catheter, replacement of left ureteral stent, and new placement of right ureteral stent in setting of hydronephrosis. Patient does not appear to be in any distress. Group B strep seen in cultures of the area. MRSA in the urine cultures. Continuing on Bactrim DS PO BID for total of 10 days of treatment. Noted that there was an increase in the LFTs yesterday. The patient AST is 19 and ALT is 47. No new issues. He denies complaints. Objective - Vital Signs/Intake and Output Vital Signs (last 24 hours): Temp Pulse Resp BP Pulse Ox 98.0 F 55 L 18 102/59 L 100 06/19/16 07:30 06/19/16 07:30 06/19/16 07:30 06/19/16 07:30 06/19/16 07:30 Intake and Output: 06/19/16 06/19/16 06:59 18:59 Intake Total 300 Output Total 1400 Balance -1100 - Medications Medications: Current Medications Acetaminophen (Tylenol 325mg Tab) 650 mg PO Q6H PRN PRN Reason: elevated temp 101 Albuterol/Ipratropium (Duoneb 3 Mg/0.5 Mg (3 Ml) Ud) 3 ml IH [id number] PRN PRN Reason: Shortness of Breath Cyproheptadine HCl (Periactin) 4 mg PO DAILY [facility] Last Admin: 06/19/16 09:29 Dose: 4 mg Heparin Sodium (Porcine) (Heparin) 5,000 units SC Q12 [facility] PRN Reason: Protocol Last Admin: 06/19/16 09:29 Dose: 5,000 units Insulin Human Lispro (Humalog Med) 0 units SC ACHS [facility] PRN Reason: Protocol Last Admin: 06/19/16 11:58 Dose: 3 units Metoprolol Tartrate (Lopressor) 25 mg PO BID [facility] Last Admin: 06/19/16 09:29 Dose: 25 mg Pantoprazole Sodium (Protonix Ec Tab) 40 mg PO 0630 [facility] Last Admin: 06/18/16 06:26 Dose: 40 mg Trimethoprim/Sulfamethoxazole (Bactrim Ds Tab) 1 tab PO BID [facility] PRN Reason: Protocol Stop: 06/26/16 18:01 Last Admin: 06/19/16 09:29 Dose: 1 tab - Labs Labs: 06/19/16 05:30 06/19/16 05:30 PT 11.3 Seconds (9.9-11.8) 06/18/16 06:30 INR 1.05 (0.93-1.08) 06/18/16 06:30 - Constitutional Appears: Non-toxic, No Acute Distress, Chronically Ill - Head Exam Head Exam: ATRAUMATIC, NORMOCEPHALIC - Eye Exam Eye Exam: EOMI, PERRL Pupil Exam: NORMAL ACCOMODATION, PERRL - ENT Exam ENT Exam: Mucous Membranes Moist, Normal External Ear Exam, TM's Normal Bilaterally - Neck Exam Neck Exam: Full ROM, Normal Inspection - Respiratory Exam Respiratory Exam: Clear to Ausculation Bilateral, NORMAL BREATHING PATTERN. absent: Rales, Rhonchi, Wheezes - Cardiovascular Exam Cardiovascular Exam: REGULAR RHYTHM, RRR, +S1, +S2 - GI/Abdominal Exam GI & Abdominal Exam: Soft, Normal Bowel Sounds. absent: Distended, Tenderness - Extremities Exam Extremities Exam: Full ROM, Normal Inspection - Neurological Exam Neurological Exam: Alert, Awake, CN II-XII Intact Additional comments: AAO x 2-3 - Psychiatric Exam Psychiatric exam: Normal Affect, Normal Mood - Skin Skin Exam: Intact, Normal Color Assessment and Plan - Assessment and Plan (Free Text) Assessment: 70 yo male admitted after catheter change, left ureteral stent replacement, and right ureteral stent placement. Culture of urine showing gram positive cocci growth. Supportive care. Currently on Rocephin but patient appears comfortable. Culture may be a sign of colonization of the area. Local wound care. Awaiting cultures. Supportive care. Urine culture showing MRSA. Bactrim DS started for coverage. Ceftriaxone stopped. 10 day course of Bactrim DS orally will cover MRSA UTI. There is a small possibility that the trimethoprim component of Bactrim may cause significant elevation of ALT and AST. Elevations of up to twice the normal ALT and AST are not uncommon with trimethoprim. Would be concerned if the transaminases elevated past a multiple of 3 times normal. Continue to track ALT and AST trend. ALT and AST normalized today. Will repeat urine culture in a day or two. Thank you for allowing me to participate in the care of this patient, we will follow with you.
--- NOTE | 2016-06-19 17:04 | PN ---
DATE: 06/19/2016 HISTORY OF PRESENT ILLNESS: Seen and examined at the bedside earlier this afternoon. The patient denies any nausea, vomiting, or abdominal pain. He was reported to have a large bowel movement earlier this morning. No reports of any bleeding. VITAL SIGNS: Temperature is 98, blood pressure is 102/59, pulse 55, respirations 18, 100% on room air. LABORATORY DATA: WBC is 4.7, H and H is 9.6 and 28.6, platelets of 147. His sodium 136, K 4.2, BUN 49, creatinine is 3.6. Total bilirubin is 0.6, direct bilirubin 0.6, AST 19, ALT 47, alkaline phosphatase is 221. There is improvement showing. PHYSICAL EXAMINATION: HEENT: Sclerae anicteric. NECK: Supple. CARDIAC: S1, S2. LUNGS: Decreased breath sounds with good air entry. ABDOMEN: With bowel sounds, soft, not distended, nontender on palpation. No organomegaly. EXTREMITIES: No edema noted. He does have right-sided hemiplegia with right arm that is contracted. ASSESSMENT/PLAN: A 70-year-old male with history of cerebrovascular accident with right-sided weakness, came with replacement of Egan catheter and left ureteral stent and a newly right ureteral stent placement for bilateral hydronephrosis. He also has chronic renal failure, stage IV. Also noted to have chronic anemia, found to have elevated alkaline phosphatase, could be multifactorial secondary to medication induced. He did have an ultrasound, found to have fatty liver and cholelithiasis. No CBD stones. History of gastroesophageal reflux disease, diabetes mellitus. His LFTs are improving. We can also consider starting Actigall. Continue to monitor LFTs. He is on heparin DVT prophylaxis. He is on Protonix 40 daily. The patient is on Bactrim. The patient will likely be discharged back to [facility]. Spoke to OTONIEL Andrade, following patient. The patient was seen and case discussed with Dr. Leonardo. Liliana FREDERICK cc: [phone] TT: 06/19/2016 17:03:15 Confirmation # [id number] Dictation # [id number] [facility]
[2016-06-19 17:13] VITALS: BP 130/66; PULSE 58
--- NOTE | 2016-06-19 19:45 | CP.PCM.PN ---
Subjective - Date & Time of Evaluation Date of Evaluation: 06/19/16 Time of Evaluation: 19:44 - Subjective Subjective: picc line removed from left upper extremity. Objective - Vital Signs/Intake and Output Vital Signs (last 24 hours): Temp Pulse Resp BP Pulse Ox 98.0 F 58 L 18 130/66 100 06/19/16 07:30 06/19/16 17:12 06/19/16 07:30 06/19/16 17:12 06/19/16 07:30 Intake and Output: 06/19/16 06/20/16 18:59 06:59 Intake Total 360 Output Total 825 Balance -465 - Medications Medications: Current Medications Acetaminophen (Tylenol 325mg Tab) 650 mg PO Q6H PRN PRN Reason: elevated temp 101 Albuterol/Ipratropium (Duoneb 3 Mg/0.5 Mg (3 Ml) Ud) 3 ml IH [id number] PRN PRN Reason: Shortness of Breath Cyproheptadine HCl (Periactin) 4 mg PO DAILY [facility] Last Admin: 06/19/16 09:29 Dose: 4 mg Heparin Sodium (Porcine) (Heparin) 5,000 units SC Q12 [facility] PRN Reason: Protocol Last Admin: 06/19/16 09:29 Dose: 5,000 units Insulin Human Lispro (Humalog Med) 0 units SC ACHS [facility] PRN Reason: Protocol Last Admin: 06/19/16 17:11 Dose: 3 units Metoprolol Tartrate (Lopressor) 25 mg PO BID [facility] Last Admin: 06/19/16 17:12 Dose: 25 mg Pantoprazole Sodium (Protonix Ec Tab) 40 mg PO 0630 [facility] Last Admin: 06/18/16 06:26 Dose: 40 mg Trimethoprim/Sulfamethoxazole (Bactrim Ds Tab) 1 tab PO BID [facility] PRN Reason: Protocol Stop: 06/26/16 18:01 Last Admin: 06/19/16 17:12 Dose: 1 tab - Labs Labs: 06/19/16 05:30 06/19/16 05:30 PT 11.3 Seconds (9.9-11.8) 06/18/16 06:30 INR 1.05 (0.93-1.08) 06/18/16 06:30
[2016-06-19] MEDS ORDERED: Sodium Chloride 0.9% 1,000 ML IV SCH (20:00)
--- NOTE | 2016-06-19 20:48 | PN ---
DATE: 06/19/2016 REFERRING PHYSICIAN: Dr. Lin. SUBJECTIVE: He is lying in the bed, head at 45 degrees, nursing staff at bedside. No headache, no r hinitis, no nausea, no vomiting, no diarrhea, no abdominal pain, no leg swelling. OBJECTIVE: GENERAL: No acute distress. VITAL SIGNS: Temp is 98, heart rate is 58, respiratory rate is 18, blood pressure 130/66, pulse ox 9 9% on room air. HEENT: Moist mucous membranes. Crowded airway. Mallampati score of 4. NECK: Supple. No JVD. LUNGS: Have a fair airflow with few rhonchi. HEART: S1, S2. ABDOMEN: Soft, nontender. No organomegaly. EXTREMITIES: There is no edema. NEUROLOGIC: Awake, alert, follows simple commands. MEDICATIONS: He is on Bactrim double strength 1 tab twice a day, DuoNeb q. 6 hours, heparin 5000 sub Q q. 12 hours, insulin coverage, metoprolol tartrate 25 mg twice a day, Periactin 4 mg daily, Protoni x 40 mg daily, Tylenol on a p.r.n. basis. LABORATORY DATA: Shows hemoglobin 9.6, hematocrit 28.6, WBC 4.7, platelet count is 147. Sodium 136, potassium 4.0, chloride 105, bicarbonate 21, BUN 49, creatinine 2.6, glucose 111. Hemoglobin A1c is 8.3. Calcium 8.3. AST is 19, ALT 47, alk phos is 221, albumin is 2.9. Urine culture has a Staph. IMPRESSION AND PLAN: Chronic obstructive lung disease, cerebrovascular accident in the past, renal i nsufficiency, hydronephrosis, ureteral stent, hypertension, hyperlipidemia, diabetes. Still has no l uck with improving renal function. May consider decreasing Bactrim, which is one of the drugs. We will continue IV fluids. Follow up BUN and creatinine in the morning. Thank you and will follow with you. Adrienne Vallejo MD cc: [phone] TT: 06/19/2016 20:48:07 Confirmation # [id number] Dictation # [id number] mn
--- NOTE | 2016-06-20 00:08 | PN ---
DATE: 06/19/2016 ADDENDUM This is an addendum to the GI progress report dictated by Liliana Whitfield NP. The patient was comfortable, tolerating the diet. Abdomen is soft. There is no tenderness. The patient does have elevated liver enzymes, mainly alkaline phosphatase which shows a slight downward trend. Transaminase is better, but the concern is the patient has been on antibiotics. The patient is planned to be discharged today to the long term. It is a reasonable thing to follow up labs in the long term. We will discuss with Dr. Lin regarding this. Thank you very much for allowing me to participate in the care of the patient. Gloria Leonardo MD cc: [phone] TT: 06/20/2016 00:07:38 Confirmation # [id number] Dictation # [id number] kristi MTDD
--- NOTE | 2016-06-20 17:01 | PN ---
DATE: 06/19/2016 See the many previously dictated notes, see the operative report from 06/15, the progress notes all al lolis. Today is 06/19. The patient is currently resting comfortably. The patient is being seen by Dr. Be and Dr. Lin. Creatinine is noted to still be above 3. No other major changes. PAST MEDICAL AND SURGICAL HISTORY: No change. PHYSICAL EXAMINATION: GENERAL: Well-nourished male. He is currently resting comfortably in his bed. ABDOMEN: Soft, no real CVA tenderness. The Egan catheter is in place. DIAGNOSES: Voiding dysfunction, urinary retention, hydronephrosis, renal failure, azotemia. We disc ussed options. At this point, just continue current care, no interim changes. We are going to maint ain the patient with the Egan and he has bilateral stents and we will observe the patient. The rai ent is also being seen by Dr. Be and Dr. Lin. Haresh Waters MD cc: [phone] TT: 06/20/2016 16:59:51 Confirmation # [id number] Dictation # [id number]
--- NOTE | 2016-06-21 17:36 | PQF SEPSIS ---
06/21/16 Dr. Sheldon, Sepsis is stated on H&P of 06/05, Dr. Waters's OR note, and progress note of . Did this patient have a systemic sepsis due to UTI? Thank you. Clarification of your documentation is requested to better reflect the severity of illness and intensity of treatment of your patient. Indicators present [] Temp < 96.8 or > 100.4 [] WBC count > 12,000/mm3 or <000/mm3 or 10% immature neutrophils [] Heart Rate > 90 [] Respiratory Rate > 20 [] Fever or hypothermia [] Chills [] Positive blood cultures [X] Hypotension [] Metabolic acidosis (Elevated lactate level, anion gap or reduced blood pH) [] Acute confusion /Altered Mental Status [] Shock [X] Other: [Positive Urine culture with Group B Strep] Location in the medical record that reflects the above clinical findings: [] Treatment Provided: [] PHYSICIAN'S RESPONSE Based on your medical judgment of the clinical indicators outlined above, are you treating this patient for a known or suspected: [X] Sepsis / Septicemia Please specify organism if known [Group B Strep] [X] SIRS (Systemic Inflammatory Response Syndrome) [] Severe Sepsis (Sepsis with Associated Organ Dysfunction) [] Fever of Unknown Origin [] Other, please indicate: [] [] If Unable to Determine, please check the box, sign and date. Present On Admission (POA) Indicator: [X] Present at the time of admission [] Not present at the time of admission [] Clinically Undetermined In responding to this query, please exercise your independent professional judgment. The fact that a question is asked does not imply that any particular answer is desired or expected. Thank you for your clarification on this documentation. If you have any questions please call:[ ] * Thank you, [ ] spot cleaner KAREN
--- NOTE | 2016-06-26 08:15 | DS ---
CHIEF COMPLAINT: Weakness, fatigue and lethargic, HISTORY OF PRESENT ILLNESS: The patient is a 70-year-old male, a resident of [facility], with a past medical history of hypertension, congestive heart failure, severe who went to see Dr. Waters in his office and Dr. Waters sent the patient to [facility] because he diagnosed him with right hydronephrosis . Dr. Waters put left side ureter stent ,now need right side . The patient was noted to have a fever. No nausea, vomiting or diarrhea. We admitted the patient. Fluoroscopy was done and the patient yield analyst is Dr. Cindy Be. The patient was seen by the tenter , cardiac catheterization done and Dr. Sheldon saw the patient. Because of severe anemia the patient was seen by Dr. Malissa Dyer . PAST MEDICAL HISTORY: Hypertension, congestive heart failure, diabetes mellitus , anemia, COPD. ALLERGIES: The patient is not allergic to any medications. FAMILY HISTORY: Father , mother non signefecent . HABITS: No smoking, no drugs , noethnol REVIEW OF SYSTEMS: The patient was seen and examined , looking comfortable. No nausea, vomiting or diarrhea. No swelling of the leg. No headache, no dizziness. The patient is not a very good historian. PHYSICAL EXAMINATION: VITAL SIGNS: Temperature 98, heart rate 58, respirations 18, blood pressure 130 /66, pulse oximetry of 99% on room air. HEAD: Normocephalic, atraumatic. EYES: laura , eomi mucosa membrane moist , NECK: Supple, with nrom HEART: S1, S2 positive. LUNGS: Clear to auscultation. ABDOMEN: Soft, no organomegaly. EXTREMITIES: Reveal no cyanosis. NEUROLOGIC: Awake and alert. MEDICATIONS: Heparin, insulin coverage, metoprolol, Periactin, Protonix and Tylenol. LABORATORY DATA: Hemoglobin 8.6, hematocrit 28.6, Sodium 136, potassium 4.0, BUN 49 and creatinine Urine culture has staph. ASSESSMENT AND PLAN: The patient is a 70-year-old male with many disease, cerebrovascular accident in the past, renal insufficiency, and hydronephrosis, change of the ureters stents done by Dr. Waters, hypertension, hypercholesterolemia, diabetes mellitus,and chronic obstructive pulmonary disease. Renal function tests are improving. gave IV fluids. The patient has severe anemia, status post blood transfusion, seen by Dr. Malissa, patcher . The patient had renal insuffecenty , is slightly downward trending ,is better now, so the patient is planned to be discharged . Will continue treatment and bed side physical therapy. Will followup. Salima Lin MD cc: [id number] TT: 06/24/2016 20:54:43 mckay JONES
== END 2016-06-19 21:03 | DRG 872 ==
LOC: SDS 08:05 → 5RSO 13:54 → INTOOBSV 13:54 → 5RSO 14:50 → SDS 14:50 → OBSVTOIN 06-15 09:53 → 5RNO 06-16 18:15
PROVIDERS: ADMIT Internal Medicine; ATTEND Internal Medicine
PROC: BT1DZZZ Fluoroscopy of Right Kidney, Ureter and Bladder (ICD-10-PCS; principal; 2016-06-15)
PROC: 0WHR8YZ Insertion of Other Device into Genitourinary Tract, Via Natural or Artificial Opening Endoscopic (ICD-10-PCS; 2016-06-15)
PROC: BT10ZZZ Fluoroscopy of Bladder (ICD-10-PCS; 2016-06-15)
PROC: 30233N1 Transfusion of Nonautologous Red Blood Cells into Peripheral Vein, Percutaneous Approach (ICD-10-PCS; 2016-06-16)
DX: A40.8 Other streptococcal sepsis (principal); N18.4 Chronic kidney disease, stage 4 (severe); I13.0 Hypertensive heart and chronic kidney disease with heart failure and stage 1 through stage 4 chronic kidney disease, or unspecified chronic kidney disease; E10.22 Type 1 diabetes mellitus with diabetic chronic kidney disease; I50.9 Heart failure, unspecified; N13.30 Unspecified hydronephrosis; R13.12 Dysphagia, oropharyngeal phase; N39.0 Urinary tract infection, site not specified; I69.351 Hemiplegia and hemiparesis following cerebral infarction affecting right dominant side; R47.01 Aphasia; D63.8 Anemia in other chronic diseases classified elsewhere; E87.5 Hyperkalemia; E87.6 Hypokalemia; E78.5 Hyperlipidemia, unspecified; J44.9 Chronic obstructive pulmonary disease, unspecified; K21.9 Gastro-esophageal reflux disease without esophagitis; K27.9 Peptic ulcer, site unspecified, unspecified as acute or chronic, without hemorrhage or perforation; E10.51 Type 1 diabetes mellitus with diabetic peripheral angiopathy without gangrene; E10.65 Type 1 diabetes mellitus with hyperglycemia; E66.9 Obesity, unspecified; E78.00 Pure hypercholesterolemia, unspecified; F31.9 Bipolar disorder, unspecified; G47.33 Obstructive sleep apnea (adult) (pediatric); I25.10 Atherosclerotic heart disease of native coronary artery without angina pectoris; I69.349 Monoplegia of lower limb following cerebral infarction affecting unspecified side; K59.00 Constipation, unspecified; K76.0 Fatty (change of) liver, not elsewhere classified; M10.9 Gout, unspecified; N31.9 Neuromuscular dysfunction of bladder, unspecified; N40.0 Benign prostatic hyperplasia without lower urinary tract symptoms; R31.9 Hematuria, unspecified; Z79.4 Long term (current) use of insulin; Z82.49 Family history of ischemic heart disease and other diseases of the circulatory system; Z83.3 Family history of diabetes mellitus; Z87.11 Personal history of peptic ulcer disease; Z87.440 Personal history of urinary (tract) infections; Z87.891 Personal history of nicotine dependence; Z95.1 Presence of aortocoronary bypass graft; T83.018A Breakdown (mechanical) of other urinary catheter, initial encounter; F09 Unspecified mental disorder due to known physiological condition; I69.398 Other sequelae of cerebral infarction; M24.50 Contracture, unspecified joint; R74.8 Abnormal levels of other serum enzymes; R32 Unspecified urinary incontinence; Z68.30 Body mass index [BMI] 30.0-30.9, adult; B95.1 Streptococcus, group B, as the cause of diseases classified elsewhere

== ENCOUNTER 2016-08-02 18:43 | Inpatient (IN) | payer MEDICARE, MEDICAID ==
--- NOTE | 2016-08-02 19:30 | ED PDOC ---
Arrival/HPI - General Historian: Patient, Other (chart and triage nurse ) <Melissa Berg - Last Filed: 08/02/16 21:38> <Anshul Al - Last Filed: 08/02/16 22:19> - General Chief Complaint: Abnormal Labs Time Seen by Provider: 08/02/16 19:10 - History of Present Illness Narrative History of Present Illness (Text): 08/02/16 19:27 Patient is a 71 y.o with PMh of CAD with h/o of CABG, PVD s/p angioplasty, hypercholesterolemia, GERDs, DM, Gout, Bipolar Disorder, Iron Deficiency Anemia , CVA with right sided residual hemiplegia, CKD, h/o hydronephrosis and b/l ureteral stents, chronic indwelling Cabrera catheter sent from [facility] due to abnormal bun/creat and hgb of 8. Patient is not sure why he was sent from assisted. However patient admits to chronic shortness of breath, denies cp, fever, chills, n/v/d, headache, dizziness. Denies abdominal pain, denies constipation. 08/02/16 19:37 08/02/16 19:54 08/02/16 20:03 (Melissa Berg) Past Medical History - Provider Review Nursing Documentation Reviewed: Yes - Travel History Have you recently traveled outside [place] w/in the past 3 mons?: No - Tetanus Immunization Tetanus Immunization: Unknown - Cardiac Hx Cardiac Disorders: Yes Hx Hypertension: Yes - Neurological HX Cerebrovascular Accident: Yes (R sided weakness; aphasia?) - HEENT Hx HEENT Disorder: Yes (eyeglasses) - Renal Hx Renal Failure: Yes - Endocrine/Metabolic Hx Diabetes Mellitus Type 1: Yes - Hematological/Oncological Hx Anemia: Yes - Integumentary Other/Comment: ble discolored brown skin, right heel dry wound, left heel 1.5cm brown dry wound, slight redness to r great toe, scar lle, bruise outer right knee, red dry wound r knee, red buttocks, stage 2 1.5cm round red dry wound to sacrum - Musculoskeletal/Rheumatological Hx Falls: No - Gastrointestinal Hx Gastroesophageal Reflux: Yes - Genitourinary/Gynecological Hx Genitourinary Disorders: Yes (hydronephrosis) Hx Incontinence: Yes Hx Prostate Problems: Yes (bph) - Psychiatric Hx Bipolar Disorder: Yes Hx Depression: Yes Hx Emotional Abuse: No Hx Physical Abuse: No Hx Substance Use: No - Anesthesia Hx Anesthesia Reactions: No Hx Malignant Hyperthermia: No - Suicidal Assessment Feels Threatened In Home Enviroment: No <Melissa Berg - Last Filed: 08/02/16 21:38> Family/Social History - Physician Review Nursing Documentation Reviewed: Yes Family/Social History: No Known Family HX Smoking Status: Former Smoker Hx Alcohol Use: No Hx Substance Use: No <Melissa Berg - Last Filed: 08/02/16 21:38> Allergies/Home Meds <Melissa Berg - Last Filed: 08/02/16 21:38> <Anshul Al - Last Filed: 08/02/16 22:19> Allergies/Adverse Reactions: Allergies milk Allergy (Verified 05/04/16 20:19) VOMITING Poultry Allergy (Verified 05/04/16 20:19) VOMITING shellfish derived Allergy (Verified 05/04/16 20:19) VOMITING Home Medications: Home Meds Medication Instructions Recorded Confirmed Insulin Lispro-LOW [humALOG LOW] 0 units SC ACHS 06/13/16 08/02/16 Calcium Carbonate/Vitamin D3 500 mg PO DAILY 08/02/16 08/02/16 [Oyster Shell Calcium Tablet] Linagliptin [Tradjenta] 5 mg PO DAILY 08/02/16 08/02/16 Metoprolol Tartrate [Lopressor] 12.5 mg PO BID 08/02/16 08/02/16 Multivitamin with Minerals [Daily 1 tab PO DAILY 08/02/16 08/02/16 Vitamin Formula-Minerals] Review of Systems - Review of Systems Constitutional: Normal Eyes: Normal ENT: Normal Respiratory: SOB. absent: Cough, Wheezing Cardiovascular: Normal Gastrointestinal: Normal Genitourinary Male: Other (chronic indewelling cabrera catheter) Musculoskeletal: Other (wheelchair bound) Neurological: Gait Changes, Speech Changes, Facial Droop Endocrine: Normal Hemo/Lymphatic: Normal Psychiatric: Normal <Melissa Berg - Last Filed: 08/02/16 21:38> Physical Exam Temperature: Afebrile Blood Pressure: Hypotensive Pulse: Regular Respiratory Rate: Normal Appearance: Positive for: Non-Toxic, Comfortable, Ill-Appearing Pain Distress: None Mental Status: Positive for: Confused. No: Alert and Oriented X 3 - Systems Exam Head: Present: Atraumatic, Normocephalic. No: Tenderness Pupils: Present: PERRL Extroacular Muscles: Present: EOMI Conjunctiva: Present: Normal Mouth: Present: Dry Neck: Present: Normal Range of Motion Respiratory/Chest: Present: Clear to Auscultation, Good Air Exchange, Respiratory Distress. No: Accessory Muscle Use, Wheezes, Rales, Retracting, Rhonchi, Tachypneic Cardiovascular: Present: Regular Rate and Rhythm, Normal S1, S2. No: Murmurs, Rub, Gallop, Muffled Abdomen: Present: Tenderness (LLQ.), Normal Bowel Sounds. No: Distention, Rebound Genitourinary Male: Present: Other (cabrera catheter in place. ) Back: Present: Normal Inspection Upper Extremity: No: Edema Lower Extremity: No: Edema Neurological: Present: GCS=15, Other (Right sided hemiplegia, left soded facial drooping, right sided upper and lower extremities are contracted. ). No: Speech Normal, Memory Normal Skin: Present: Warm, Normal Color, Diaphoretic Psychiatric: Present: Alert, Normal Insight, Normal Concentration. No: Oriented x 3 <Melissa Berg - Last Filed: 08/02/16 21:38> Medical Decision Making Re-evaluation Time: 09:20 Reassessment Condition: Re-examined - EKG Interpretation Interpreted by ED Physician: Yes Type: 12 lead EKG <Melissa Berg - Last Filed: 08/02/16 21:38> <Anshul Al - Last Filed: 08/02/16 22:19> ED Course and Treatment: 08/02/16 19:53 Patient is a 71 y.o with PMh of CAD with h/o of CABG, PVD s/p angioplasty, hypercholesterolemia, CKD, GERDs, DM, Gout, Bipolar Disorder, Iron Deficiency Anemia, CVA with right sided residual hemiplegia, h/o hydronephrosis and ureteral stents, chronic indwelling Cabrera catheter sent from [facility] due to abnormal bun/creat and hgb of 8. Differentials: UTI, sepsis, acute on chronic anemia, hypotension, TRISH on ckd likely 2nd to dehydration. Plan: - will repeat cbc, cmp - will do full sepsis work up due to hypotension including ekg, chest x- ray, vbg shock panel. 08/02/16 19:55 08/02/16 19:55 08/02/16 21:[address] Lin service. 08/02/16 21:25 08/02/16 21:39 Dr Al spoke to Dr Lin, accepted admission to his service. Patient to be admitted with renal insufficiency and dehydration. (Melissa Berg) Patient Seen With Resident: In agreement with resident note which contains more details about the patient. Patient was seen and evaluated with resident. Came up with plan and treatment together. A 71 year old male presents with shortness of breath and abnormal bun/creat and hgb of 8. Additional HPI details as noted by resident. Left lower quadrant tenderness, diaphoretic skin, right sided hemiplegia, left sided facial droop, right sided upper and lower extremities are contracted on physical exam. Cabrera catheter in place. Patient is alert but not oriented X 3. EKG, chest xray, labs and urinalysis ordered. Will give patient IV fluids. 08/02/16 20:58 CXR- No acute process 08/02/16 21:[address] Lin, who is aware and agrees with plan. Accepts pt in to her service. Pt admitted to [facility] for renal insufficiency and dehydration. and Requests Dr. Be on consult. (Anshul Al) - Lab Interpretations Narrative Lab Interpretation (Text): 08/02/16 21:19 Hypokalemia Trish on CKD Acute on chronic anemia (Melissa Berg) Lab Results: 08/02/16 20:00 08/02/16 20:00 Lab Results 08/02/16 21:00: Urine Color Light yellow, Urine Appearance Cloudy, Urine pH 7.0 , Ur Specific [place] 1.015, Urine Protein 100 H, Urine Glucose (UA) Negative, Urine Ketones Negative, Urine Blood Moderate H, Urine Nitrate Negative, Urine Bilirubin Negative, Urine Urobilinogen 0.2, Ur Leukocyte Esterase Moderate H, Urine RBC 20 - 25, Urine WBC Tntc, Ur Epithelial Cells 4 - 5, Urine Bacteria Mod 08/02/16 20:00: Blood Type A POSITIVE, Antibody Screen Negative, BBK History Checked Patient has bt 08/02/16 20:00: Sodium 133, Chloride 98, Potassium 3.5 L, Carbon Dioxide 21, Anion Gap 18, BUN 102 H, Creatinine 4.6 H, Est GFR ( Amer) 15, Est GFR ( Non-Af Amer) 13, Random Glucose 74, Calcium 8.7, Phosphorus 3.7, Magnesium 2.5 H , Total Bilirubin 0.6, AST 25, ALT 35, Alkaline Phosphatase 109, Total Protein 8.0, Albumin 3.6, Globulin 4.4, Albumin/Globulin Ratio 0.8 L 08/02/16 20:00: pO2 60 H, VBG pH 7.31 L, VBG pCO2 43.0, VBG HCO3 21.7, VBG Total CO2 23.0, VBG O2 Sat (Calc) 94.2 H, VBG Base Excess -4.3 L, VBG Potassium 3.6, Sodium 133.0, Chloride 101.0, Glucose 73 L, Lactate 1.0, FiO2 21.0, Venous Blood Potassium 3.6 08/02/16 20:00: PT 10.4, INR 0.96, APTT 27.1 08/02/16 20:00: WBC 6.5 D, RBC 2.90 L, Hgb 8.8 L, Hct 26.1 L, MCV 90.0, MCH 30.3, MCHC 33.7, RDW 14.4, Plt Count 237, MPV 9.0, Gran % 68.6 H, Lymph % (Auto ) 20.9 L, [place] % (Auto) 8.5 H, Eos % (Auto) 1.7, Baso % (Auto) 0.3, Gran # 4.43 , Lymph # 1.4, [place] # 0.6, Eos # 0.1, Baso # 0.02 - RAD Interpretation Radiology Orders: 08/02/16 19:33 CHEST PORTABLE [RAD] Stat - EKG Interpretation EKG Interpretation (Text): 08/02/16 19:56 NSR, HR 80 bpm, normal axis, mildly prolonged QTC of 440. 08/02/16 19:57 (Melissa Berg) - Medication Orders Current Medication Orders: Sodium Chloride (Sodium Chloride 0.9%) 1,000 mls @ 100 mls/hr IV .Q10H EMILY Last Admin: 08/02/16 20:00 Dose: 100 mls/hr Discontinued Medications Potassium Chloride (K-Dur 20 Meq Er Tab) 40 meq PO STAT STA Stop: 08/02/16 21:18 Last Admin: 08/02/16 21:54 Dose: 40 meq - PA / DIRECTOR BLOOD BANK / Resident Statement / has reviewed & agrees with the documentation as recorded. / has examined the patient and agrees with the treatment plan. <Anshul Al - Last Filed: 08/02/16 22:19> Disposition/Present on Arrival - Present on Arrival Any Indicators Present on Arrival: No History of DVT/PE: No History of Uncontrolled Diabetes: No Urinary Catheter: No History of Decub. Ulcer: No History Surgical Site Infection Following: None - Disposition Have Diagnosis and Disposition been Completed?: Yes Disposition Time: 21:37 Patient Plan: Admission <Melissa Berg - Last Filed: 08/02/16 21:38> <Anshul Al - Last Filed: 08/02/16 22:19> - Disposition Diagnosis: Dehydration, Renal insufficiency Disposition: HOSPITALIZED Patient Problems: Current Active Problems Problem Status Onset Dehydration Acute Renal insufficiency Acute Condition: FAIR
[2016-08-02] MEDS: Sodium Chloride 0.9% 1,000 ML IV SCH (20:00)
[2016-08-02 20:16] LABS: ADD MANUAL DIFF? NO
[2016-08-02 20:27] LABS: VENOUS BLOOD GAS BASE EXCESS -4.3 mmol/L (0.0-2.0); VENOUS BLOOD PH 7.31 (7.32-7.43)
[2016-08-02 20:40] LABS: BASO # 0.02 K/mm3 (0.0-2.0); BASO % 0.3 % (0.0-3.0); EOS # 0.1 (0.0-0.7); EOS % 1.7 % (1.5-5.0); GRAN # 4.43 (1.4-6.5); GRAN % 68.6 % (50.0-68.0); HEMATOCRIT 26.1 % (42.0-52.0); LYMPH # 1.4 (1.2-3.4); LYMPH % 20.9 % (22.0-35.0); MEAN CORPUSCULAR HEMOGLOBIN 30.3 pg (25.0-35.0); MEAN CORPUSCULAR HGB CONC 33.7 g/dl (31.0-37.0); MONO # 0.6 (0.1-0.6); MONO % 8.5 % (1.0-6.0); PLATELET COUNT 237 10^3/uL (120.0-450.0); RED CELL DISTRIBUTION WIDTH 14.4 % (11.5-14.5); WHITE BLOOD COUNT 6.5 10^3/ul (4.5-11.0)
[2016-08-02 20:41] LABS: ALB/GLOB RATIO 0.8 (1.1-1.8); BILIRUBIN,TOTAL 0.6 mg/dL (0.2-1.3); CALCIUM 8.7 mg/dL (8.4-10.5); PHOSPHOROUS 3.7 mg/dL (2.5-4.5)
[2016-08-02 20:46] LABS: INR 0.96 (0.93-1.08); MAGNESIUM 2.5 mg/dL (1.7-2.2); PARTIAL THROMBOPLASTIN TIME 27.1 Seconds (23.7-30.8); POTASSIUM 3.5 mmol/L (3.6-5.0)
[2016-08-02] MEDS ORDERED: Potassium Chloride 20 mEq ER Tab PO STA (21:17)
[2016-08-02 21:42] LABS: URINE BILIRUBIN NEGATIVE (NEGATIVE); URINE BLOOD MODERATE (NEGATIVE); URINE GLUCOSE (UA) NEGATIVE (NEGATIVE); URINE KETONE NEGATIVE (NEGATIVE); URINE LEUKOCYTE ESTERASE MODERATE Leu/uL (NEGATIVE); URINE PROTEIN 100 mg/dL (<30 mg/dL); URINE UROBILINOGEN 0.2 E.U./dL (<1 E.U./dL)
[2016-08-02 21:43] LABS: URINE APPEARANCE CLOUDY (CLEAR); URINE COLOR LIGHT YELLOW (YELLOW)
[2016-08-02 22:11] LABS: URINE BACTERIA MOD (NEG); URINE RBC 20 - 25 /hpf (0-2); URINE WBC TNTC /hpf (0-6)
[2016-08-03 02:40] VITALS: BMI 26.9
[2016-08-03] MEDS: Sodium Chloride 0.9% 1,000 ML IV SCH ×2 (05:56→09:57)
--- NOTE | 2016-08-03 08:25 | RAD ---
HISTORY: Sepsis Patient COMPARISON: 06/17/2016 FINDINGS: LUNGS: The patient is rotated to the right. The lungs are well inflated and clear. PLEURA: No significant pleural effusion identified, no pneumothorax apparent. CARDIOVASCULAR: The heart is normal in size. Status post median sternotomy. OSSEOUS STRUCTURES: No significant abnormalities. VISUALIZED UPPER ABDOMEN: Normal. OTHER FINDINGS: None. IMPRESSION: No acute findings.
[2016-08-03] MEDS ORDERED: Albuterol-Ipratrop 3 mg / 0.5 (3 ml) UD IH PRN (08:41)
[2016-08-03] MEDS: Multivitamin Therapeutic Tab PO SCH (09:55)
[2016-08-03] MEDS: metOLazone 5 MG TAB PO SCH (09:55)
[2016-08-03] MEDS: CALCIUM CARBONATE PO SCH (09:56)
[2016-08-03] MEDS: [UNRECOGNIZED DRUG - OTHER] PO SCH (09:56)
[2016-08-03] MEDS: VITAMIN D3 PO SCH (09:56)
[2016-08-03] MEDS ORDERED: MULTIVITAMIN WITH MINERALS PO SCH (10:00)
[2016-08-03] MEDS ORDERED: [UNRECOGNIZED DRUG - OTHER] PO SCH (10:00)
--- NOTE | 2016-08-03 11:41 | US ---
PROCEDURE: Ultrasound of the Kidneys HISTORY: Azotemia COMPARISON: CT abdomen and pelvis from 06/18/2016 TECHNIQUE: Sonogram of the kidneys. FINDINGS: RIGHT KIDNEY: Measures: 10.3 cm. Normal in size, contour and echogenicity. No stone, solid mass lesion or hydronephrosis visualized. LEFT KIDNEY: Measures: 10.1 cm. Normal in size, contour and echogenicity. No stone, solid mass lesion or hydronephrosis visualized. OTHER FINDINGS: None. IMPRESSION: Unremarkable renal sonogram.
[2016-08-03] MEDS: Insulin Lispro (humaLOG) LOW Coverage SC SCH ×3 (12:30→21:42)
--- NOTE | 2016-08-03 14:08 | HP ---
The patient was seen and examined on 08/02/2016 in the ER. CHIEF COMPLAINT: Lethargic, abnormal labs. HISTORY OF PRESENT ILLNESS: The patient is a 71-year-old male with past medical history of coronary artery disease, CABG, PVD, status post angioplasty, hypercholesterolemia, gastroesophageal reflux disease, dyspepsia, gouty arthritis, bipolar anemia, CVA, right-sided weakness, hemiplegia, CKD, hydronephrosis, bilateral ureteral stent, chronic indwelling Egan catheter. Is a resident of [facility]. Yesterday, they did labs, hemoglobin was low, renal function was abnormal, and as per nursing staff, the patient was lethargic. We brought the patient to [facility]. The patient was seen in the ER by me. PAST MEDICAL HISTORY: As above, hypertension, right-sided weakness, renal insufficiency, diabetes mellitus type 1, COPD, obstructive sleep apnea syndrome , right heel dry wound, left heel 1.5 cm brown dry wound, GERD, dyspepsia, COPD , obstructive sleep apnea, hydronephrosis, BPH, bipolar. FAMILY HISTORY: Father and mother noncontributory. HABITS: Former smoker. No smoking, no drugs, no ethanol now. ALLERGIES: THE PATIENT IS ALLERGIC WITH MILK, POULTRY, SHELLFISH. HOME MEDICATIONS: Insulin, vitamins, Tradjenta, Lopressor. REVIEW OF SYSTEMS: The patient was seen and examined on 08/02/2016 on the bedside in the ER, a little bit more lethargic than normal. No chest pain. Has chronic indwelling Egan catheter. Is wheelchair bound. No facial droop. No fever, no chills. No nausea, vomiting, or diarrhea. PHYSICAL EXAMINATION: VITAL SIGNS: Temperature 97.9, pulse 76, blood pressure 99/59, respiratory rate 14. HEENT: Head normocephalic, atraumatic. Eyes: PERRLA. Extraocular movements intact. Conjunctivae are clear. Nose patent. Mucous membranes moist. NECK: Supple. No carotid bruit, JVD or thyromegaly. CHEST: Bilaterally symmetrical. HEART: S1, S2 positive. LUNGS: Clear to auscultation. ABDOMEN: Soft. Bowel sounds present. No organomegaly. EXTREMITIES: No edema, no cyanosis. NEUROLOGIC: The patient is awake, alert. Moving all 4 extremities. No focal deficit. LABORATORY DATA: White blood cells 6.5, hemoglobin 8.8, hematocrit 26.1, platelets 237. Sodium 133, potassium 3.5, BUN 102, creatinine is 4.6, magnesium 2.5. ASSESSMENT AND PLAN: The patient is a 71-year-old male with iron deficiency anemia, hypokalemia, renal insufficiency, hypermagnesemia, proteinuria, hematuria, urinary tract infection. Chest x-ray reviewed by me. Has history of coronary artery disease, status post coronary artery bypass graft, peripheral vascular disease, angioplasty, hypercholesterolemia, gastroesophageal reflux disease, dyspepsia, diabetes mellitus, gouty gastritis, bipolar, history of cerebrovascular accident. The patient is bedridden. History of hydronephrosis, bilateral ureteral stents, chronic indwelling Egan catheter, chronic obstructive pulmonary disease, obstructive sleep apnea syndrome. Renal function test is deteriorating. Started antibiotics, home medications. Gastrointestinal and deep venous thrombosis prophylaxis. Repeat labs. We will follow up. Salima Lin MD cc: [id number] TT: 08/03/2016 14:08:11 arden JONES
--- NOTE | 2016-08-03 15:19 | CON ---
DATE: 08/03/2016 This 70-year-old male was examined at his bedside. His case was reviewed with himself, nursing staff and ultrasound technicians. He resides at the [facility] and is under the primary care of Dr. Salima Lin. He was sent to [facility] because of azotemia and was found to be s hort of breath. He has an extensive past medical history, including chronic renal failure stage IV, history of urological issues, including a left ureteral stent and a newly placed right ureteral stent during the month of June in the setting of bilateral hydronephrosis and chronic renal failure stage I V at that time with comorbidities of anemia of chronic disease, a history of MRSA in his urine that w as treated, history of chronic obstructive pulmonary disease, old stroke, bedridden status, insulin-d ependent diabetes mellitus, chronic hypertension, peptic ulcer disease, gastroesophageal reflux disea se, and a history of fatty liver and asymptomatic cholelithiasis. The patient is a poor historian wh en questioned. REVIEW OF SYSTEMS: HEAD: He denied headache. EYES: Denied any change in visual acuity. EARS: Denied hearing loss. THROAT: Denied swallowing difficulty. NECK: Denied stiffness. CARDIOVASCULAR: There was no chest pain, but he does have a history of atherosclerotic heart disease and congestive heart failure. PULMONARY: Chronic obstructive pulmonary disease. No hemoptysis. GASTROINTESTINAL: History of GERD, history of fatty liver, history of peptic ulcer disease. GENITOURINARY: Chronic renal failure stage IV, history of bilateral hydronephrosis and ureteral sten ts under the urological care of Dr. Haresh Waters and a history of benign prostate hypertrophy, his tory of MRSA in his urine in the past. ENDOCRINOLOGICAL: Insulin-dependent diabetes mellitus, hyperlipidemia. VASCULAR: No claudication. PSYCHOLOGICAL: Chronic post-stroke dementia. NEUROLOGICAL: Old stroke, bedridden and right hemiplegia, chronic. FAMILY HISTORY: Noncontributory. SOCIAL HISTORY: He is a current nondrinker, nonsmoker, non-IV drug misuser. He is disabled and resi petrona at [facility] for his half-way care. ALLERGIES: HE HAS SENSITIVITY TO MILK, POULTRY, SHELLFISH. OUTPATIENT MEDICATIONS: Included Zaroxolyn, subQ heparin, Periactin, Os-Shine, multivitamin, Tylenol, insulin, DuoNeb nebulizers, Protonix, and metoprolol. PHYSICAL EXAMINATION: VITAL SIGNS: At present, temperature 97.5, respirations 19, pulse 64, and blood pressure 104/61 with a pulse ox of 100% on nasal O2. On the supervisor in charge, he is in a sinus rhythm and he also complai patricio of mild shortness of breath. HEENT: Head normocephalic, atraumatic. Eyes: No icterus. Ears clear. Throat not injected. NECK: Supple. HEART: S1, S2. LUNGS: With basilar crackles. ABDOMEN: Soft. EXTREMITIES: Trace edema. SKIN: Without rash. No ulcers apparent. NEUROLOGIC: Unchanged. He has a dense right hemiplegia. Bedridden status. VASCULAR: Legs warm to touch. PSYCHOLOGICA: Responsive to questioning. LABORATORY DATA: White count 6500, hemoglobin 8.8, hematocrit 26.1, MCV 90 and platelets 237,000. P T/INR is 0.96, PTT 27.1. Sodium 133, K 3.5, chloride 98, bicarb 21, BUN 102, creatinine 4.6. Estima alexis GFR 13 mL per minute, calcium 8.7, phosphorus 3.7, magnesium 2.5. All liver function testing is normal, including bilirubin 0.6, AST 25, ALT 35, alk phos 109. Urinalysis showed moderate bacteria. IMPRESSION: A 71-year-old male with shortness of breath, anemia, advanced renal failure stage IV-V. Also with comorbidities of old stroke, right hemiplegia, chronic obstructive pulmonary disease, bedr idden status, insulin-dependent diabetes mellitus, peptic ulcer disease with gastroesophageal reflux disease, degenerative arthritis and altered mentation chronically. PLAN: At present is to continue gentle IV fluids of 0.9 saline at 60 mL an hour given his shortness of breath, basilar rales and trace edema of the legs. I have ordered a renal ultrasound given his az otemia and to ensure that he has no further obstructive uropathy at the present time. He continues o n medication including Zaroxolyn, multivitamin, Protonix, Periactin, metoprolol, potassium, insulin, subQ heparin, DuoNeb nebulizers and Os-Shine. A urine culture is pending as well as a blood culture. He has a repeat basic metabolic panel ordered for the a.m. As discussed with patient, nursing, consu ltants and case management, the patient may be nearing the need for hemodialysis and this will be det ermined based on his clinical progress. His overall prognosis remains poor. He will be treated in a conservative and compassionate way. All of this was discussed with the patient, nursing, case manag ement and co-consultants. Cindy Be MD cc: [id number] TT: 08/03/2016 15:18:39 Confirmation # [id number] Dictation # [id number] tn
--- NOTE | 2016-08-03 21:16 | CON ---
DATE: 08/03/2016 REFERRING PHYSICIAN: Dr. Lin. REASON FOR CONSULT: Cough, mild shortness of breath, renal failure, dehydration. HISTORY OF PRESENT ILLNESS: This is a 71-year-old gentleman with past medical history significant fo r coronary artery disease, history of coronary bypass surgery, hyperlipidemia, GERD, gouty arthritis, bipolar disorder, history of CVA with right-sided weakness, renal insufficiency, history of ureteral stents, indwelling catheter, who is a resident of [facility], sent to ER because of lethargy, some cough, shortness of breath, poor p.o. intake, found to be in renal failure, admitted, started on IV fluids. Nephrology consult has been called. He has oropharyngeal dysphagia, on modif ied diet. PAST MEDICAL HISTORY: As per history of present illness. ALLERGIES: No medication allergies, but ALLERGIC TO MILK, POULTRY AND SHELLFISH. SOCIAL HISTORY: Former smoker. Denies any alcohol use. FAMILY HISTORY: No significant cardiopulmonary disease reported. MEDICATIONS: He is on non-formulary dietary supplement, DuoNeb q. 4 hours p.r.n., heparin 5000 unit s subQ q. 12 hours, Tradjenta 5 mg daily, metoprolol tartrate 12.5 mg twice a day, Periactin 4 mg da jerome, Protonix 40 mg daily, IV fluid normal saline 60 mL per hour, multivitamins daily, Tylenol p.r.n. , Zaroxolyn 5 mg daily. REVIEW OF SYSTEMS: No headache, no rhinitis. Has a mild cough. Denies any significant shortness of breath. No chest pain, no nausea, no vomiting, no diarrhea. No leg pain or leg swelling. Does not know if he snores. Daytime sleepy and tired. PHYSICAL EXAMINATION: VITAL SIGNS: Temperature is 98, heart rate is 64, respiratory rate is 20, blood pressure 104/61, pul se ox 100% on nasal cannula. HEENT: Moist mucous membranes. Crowded airway. Mallampati score is 4. NECK: Supple. No JVD. LUNGS: Has a fair airflow with few rhonchi. HEART: S1, S2. ABDOMEN: Soft, nontender. No organomegaly. EXTREMITIES: There is no edema. NEUROLOGIC: Awake, alert, follows simple command, but aphasic. LABORATORY DATA: Shows hemoglobin 8.8, hematocrit 26.1, WBC 6.5, platelet is 237. INR 0.96, PTT 27. VBG showed pH 7.31, pCO2 of 43, O2 of 60 on room air. Sodium 133, potassium 3.5, chloride 98, bica rbonate 21, BUN 102, creatinine 4.6, glucose 222, calcium 8.7, phosphorus 3.7, magnesium 2.5, AST 25, ALT 35, alkaline phosphatase is 105, albumin 3.6. Had a renal ultrasound done today, which shows un remarkable ultrasound of the kidneys. Chest x-ray done yesterday in the Emergency Room shows no infi ltrate or effusion. IMPRESSION AND PLAN: Chronic obstructive lung disease, history of cerebrovascular accident, renal fa ilure, history of hydronephrosis, history of ureteral stent, hypertension, hyperlipidemia, diabetes, oropharyngeal dysphagia on modified diet, may have acute bronchitis. I agree with the present manage ment. The patient seen by nephrology, on IV fluids. Keep head elevated at 45 degrees. Sleep apnea precaution. Avoid sedation. Aspiration precaution. Continue inhaled bronchodilator. Adrienne Vallejo MD cc: [id number] TT: 08/03/2016 21:15:23 Confirmation # [id number] Dictation # [id number]
--- NOTE | 2016-08-03 23:24 | CARD ---
APPROVED REPORT EKG Measurement Heart [id number] ID [id number] <Conclusion> Normal sinus rhythm Normal ECG
[2016-08-04] MEDS: Sodium Chloride 0.9% 1,000 ML IV SCH (05:39)
[2016-08-04] MEDS: Pantoprazole 40 mg EC Tab PO SCH (05:43)
[2016-08-04] MEDS: Insulin Lispro (humaLOG) LOW Coverage SC SCH ×4 (07:40→22:00)
[2016-08-04 07:52] LABS: HEMATOCRIT 24.7 % (42.0-52.0); MEAN CELL VOLUME 91.8 fL (80.0-105.0); MEAN CORPUSCULAR HEMOGLOBIN 29.7 pg (25.0-35.0); MEAN CORPUSCULAR HGB CONC 32.4 g/dl (31.0-37.0); MEAN PLATELET VOLUME 8.6 fl (7.0-11.0); RED CELL DISTRIBUTION WIDTH 14.7 % (11.5-14.5); WHITE BLOOD COUNT 5.7 10^3/ul (4.5-11.0)
--- NOTE | 2016-08-04 07:57 | PN ---
DATE: 08/03/2016 SUBJECTIVE: The patient was seen and examined on 08/03/2016. Looks comfortable. No headache, no rhinitis. Has mild cough and shortness of breath. Denies any significant chest pain. No nausea, vomiting, or diarrhea. No swelling of the legs. Does not know if he snores because he lives in a [facility]. Daytime sleepy and tired. No fever, no chills. PHYSICAL EXAMINATION: VITAL SIGNS: Temperature 98, heart rate 64, respiratory rate 20, blood pressure 104/51, pulse ox 100% on room air. HEENT: Head normocephalic, atraumatic. Eyes: PERRLA. Extraocular muscles intact. Conjunctivae are clear. Nose patent. Mucous membranes moist. NECK: Supple. No carotid bruit, JVD or thyromegaly. CHEST: Bilaterally symmetrical. HEART: S1, S2 positive. LUNGS: Clear to auscultation. ABDOMEN: Soft. Bowel sounds positive. No organomegaly. EXTREMITIES: No edema, no cyanosis. NEUROLOGIC: The patient is awake, alert. Follows simple commands. LABORATORY DATA: Hemoglobin 8.8, hematocrit 26.1, white blood cells 6.5, platelets 237. INR is 0.96. Sodium 133, potassium 3.5, BUN 102, creatinine is 4.6, magnesium 2.5, AST 25, ALT 35. ASSESSMENT AND PLAN: The patient is with obesity, chronic obstructive lung disease, history of cerebrovascular accident, renal failure. Fitness Assistant is on the case. Hydronephrosis. Urologist is on the case. History of ureteral stent, hypertension, hypercholesterolemia, diabetes mellitus, oropharyngeal dysphagia may be due to stroke. On modified diet. Anemia, hemoglobin is dropping. Continue IV fluid as per nephrology. Sleep apnea precautions. Avoid sedation. Aspiration precautions. Continue inhaled bronchodilators. GI and DVT prophylaxis. Seen by lath hand/Dr. Cindy Be. The patient has advanced renal failure, stage IV-V, history of old stroke, right hemiplegia, altered mentation chronically. Renal ultrasound ordered, given his azotemia, and it showed that he has had no further obstructive uropathy. Repeat labs. Will follow up. Salima Lin MD cc: [id number] TT: 08/04/2016 07:57:06 Confirmation # [id number] Dictation # [id number] stephanie JONES
[2016-08-04 08:03] LABS: CALCIUM 8.3 mg/dL (8.4-10.5); POTASSIUM 4.2 mmol/L (3.6-5.0)
[2016-08-04] MEDS: [UNRECOGNIZED DRUG - OTHER] PO SCH (10:22)
[2016-08-04] MEDS: CALCIUM CARBONATE PO SCH (10:22)
[2016-08-04] MEDS: VITAMIN D3 PO SCH (10:22)
[2016-08-04] MEDS: Multivitamin Therapeutic Tab PO SCH (10:42)
[2016-08-04] MEDS: metOLazone 5 MG TAB PO SCH (10:42)
--- NOTE | 2016-08-04 16:55 | CP.PCM.CON ---
History of Present Illness - History of Present Illness History of Present Illness: Infectious Disease Consultation: August 04, 2016 71 yo male brought in from [facility] ) for lethargy and low hemoglobin on labs done at the nursing facility. The patient was short of breath as well. He is a poor historian and unable to provide much additional information at this time. PMHx: CAD, PVD, hypercholesterolemia, GERDs, obesity, DM , recent large weight loss episodes, Gout, Bipolar Disorder, Iron Deficiency Anemia, CKD Stage IV. PSHx: CABG 2 vessels, angioplasty Allergies: Chicken, IV Dye, Iodine, Milk, seafood, shellfish Social Hx: No EtOH or illicit drugs. Former tobacco use stopped 30 years ago Active Medications Acetaminophen (Tylenol 325mg Tab) 650 mg PO Q6H PRN PRN Reason: elevated temp 101 Albuterol/Ipratropium (Duoneb 3 Mg/0.5 Mg (3 Ml) Ud) 3 ml IH [id number] PRN PRN Reason: Shortness of Breath Cyproheptadine HCl (Periactin) 4 mg PO DAILY [facility] Last Admin: 08/04/16 09:23 Dose: 4 mg Heparin Sodium (Porcine) (Heparin) 5,000 units SC Q12 EMILY PRN Reason: Protocol Last Admin: 08/04/16 10:42 Dose: 5,000 units Vancomycin HCl (Vancomycin 1gm) 1 gm in 250 mls @ 167 mls/hr IVPB DAILY EMILY PRN Reason: Protocol Cefepime HCl (Maxipime 1gm) 1 gm in 100 mls @ 100 mls/hr IVPB Q24H EMILY PRN Reason: Protocol Insulin Human Lispro (Humalog Low) 0 units SC ACHS EMILY PRN Reason: Protocol Last Admin: 08/04/16 16:44 Dose: Not Given Metolazone (Zaroxolyn) 5 mg PO DAILY [facility] Last Admin: 08/04/16 10:42 Dose: 5 mg Metoprolol Tartrate (Lopressor) 12.5 mg PO BID [facility] Last Admin: 08/04/16 09:23 Dose: Not Given Multivitamins (Thera Tab) 1 tab PO DAILY [facility] Last Admin: 08/04/16 10:42 Dose: 1 tab Non-Formulary Medication (Calcium Carbonate/Vitamin D3 [Oyster Shell Calcium Tablet]) 500 mg PO DAILY [facility] Last Admin: 08/04/16 10:22 Dose: Not Given Non-Formulary Medication (Linagliptin [Tradjenta]) 5 mg PO DAILY [facility] Last Admin: 08/04/16 10:22 Dose: Not Given Pantoprazole Sodium (Protonix Ec Tab) 40 mg PO 0630 [facility] Last Admin: 08/04/16 05:43 Dose: 40 mg Family Hx: DM and CAD in father - at 54 yo CAD in mother - at 62 yo ROS: No fevers, chills, nausea, vomiting, diarrhea, headaches, dizziness, chest pain , abdominal pain, melena, hematuria, hematemesis, hematochezia, depression, anxiety, cough, SOB Past Patient History - Tetanus Immunizations Tetanus Immunization: Unknown - Past Social History Smoking Status: Never Smoked - CARDIAC Hx Cardiac Disorders: Yes Hx Angina: Yes Hx Congestive Heart Failure: Yes Hx Hypertension: Yes Other/Comment: hyperlipidemia - PULMONARY Hx Respiratory Disorders: No (unknown) - NEUROLOGICAL Hx Neurological Disorder: Yes HX Cerebrovascular Accident: Yes (R sided weakness; aphasia?) - HEENT Hx HEENT Problems: Yes (eyeglasses) - RENAL Hx Chronic Kidney Disease: Yes Hx Neurogenic Bladder: Yes Hx Renal Failure: Yes Other/Comment: has cabrera cath that urology has inserted in past in [place] per ER report - ENDOCRINE/METABOLIC Hx Endocrine Disorders: Yes Hx Diabetes Mellitus Type 1: Yes - HEMATOLOGICAL/ONCOLOGICAL Hx Blood Disorders: Yes Hx Anemia: Yes - INTEGUMENTARY Hx Dermatological Problems: Yes Other/Comment: ble discolored brown skin, right heel dry wound, left heel 1.5cm brown dry wound, slight redness to r great toe, scar lle, bruise outer right knee, red dry wound r knee, red buttocks, stage 2 1.5cm round red dry wound to sacrum - MUSCULOSKELETAL/RHEUMATOLOGICAL Hx Musculoskeletal Disorders: Yes Hx Falls: No Hx Unsteady Gait: Yes (bedreidden) Other/Comment: R arm contracted , R sided hemiparesis - GASTROINTESTINAL Hx Gastrointestinal Disorders: Yes Hx Gastroesophageal Reflux: Yes - GENITOURINARY/GYNECOLOGICAL Hx Genitourinary Disorders: Yes (hydronephrosis) Hx Incontinence: Yes Hx Prostate Problems: Yes (bph) - PSYCHIATRIC Hx Psychophysiologic Disorder: Yes Hx Bipolar Disorder: Yes Hx Depression: Yes Hx Emotional Abuse: No Hx Physical Abuse: No - SURGICAL HISTORY Hx Surgeries: No (unknown surgical hx) - ANESTHESIA Hx Anesthesia Reactions: No Hx Malignant Hyperthermia: No Meds Allergies/Adverse Reactions: Allergies Allergy/AdvReac Type Severity Reaction Status Date / Time milk Allergy VOMITING Verified 08/03/16 03:20 Poultry Allergy VOMITING Verified 08/03/16 03:20 shellfish derived Allergy VOMITING Verified 08/03/16 03:20 - Medications Medications: Current Medications Acetaminophen (Tylenol 325mg Tab) 650 mg PO Q6H PRN PRN Reason: elevated temp 101 Albuterol/Ipratropium (Duoneb 3 Mg/0.5 Mg (3 Ml) Ud) 3 ml IH [id number] PRN PRN Reason: Shortness of Breath Cyproheptadine HCl (Periactin) 4 mg PO DAILY [facility] Last Admin: 08/04/16 09:23 Dose: 4 mg Heparin Sodium (Porcine) (Heparin) 5,000 units SC Q12 EMILY PRN Reason: Protocol Last Admin: 08/04/16 10:42 Dose: 5,000 units Vancomycin HCl (Vancomycin 1gm) 1 gm in 250 mls @ 167 mls/hr IVPB DAILY EMILY PRN Reason: Protocol Cefepime HCl (Maxipime 1gm) 1 gm in 100 mls @ 100 mls/hr IVPB Q24H EMILY PRN Reason: Protocol Insulin Human Lispro (Humalog Low) 0 units SC ACHS EMILY PRN Reason: Protocol Last Admin: 08/04/16 16:44 Dose: Not Given Metolazone (Zaroxolyn) 5 mg PO DAILY [facility] Last Admin: 08/04/16 10:42 Dose: 5 mg Metoprolol Tartrate (Lopressor) 12.5 mg PO BID [facility] Last Admin: 08/04/16 09:23 Dose: Not Given Multivitamins (Thera Tab) 1 tab PO DAILY [facility] Last Admin: 08/04/16 10:42 Dose: 1 tab Non-Formulary Medication (Calcium Carbonate/Vitamin D3 [Oyster Shell Calcium Tablet]) 500 mg PO DAILY [facility] Last Admin: 08/04/16 10:22 Dose: Not Given Non-Formulary Medication (Linagliptin [Tradjenta]) 5 mg PO DAILY [facility] Last Admin: 08/04/16 10:22 Dose: Not Given Pantoprazole Sodium (Protonix Ec Tab) 40 mg PO 0630 [facility] Last Admin: 08/04/16 05:43 Dose: 40 mg Physical Exam - Constitutional Appears: Non-toxic, No Acute Distress, Chronically Ill - Head Exam Head Exam: ATRAUMATIC, NORMOCEPHALIC - Eye Exam Eye Exam: EOMI, PERRL Pupil Exam: NORMAL ACCOMODATION, PERRL - ENT Exam ENT Exam: Mucous Membranes Moist, Normal External Ear Exam, TM's Normal Bilaterally - Neck Exam Neck exam: Positive for: Full Rom, Normal Inspection - Respiratory Exam Respiratory Exam: Decreased Breath Sounds, NORMAL BREATHING PATTERN. absent: Rales, Rhonchi, Wheezes - Cardiovascular Exam Cardiovascular Exam: REGULAR RHYTHM, RRR, +S1, +S2 - GI/Abdominal Exam GI & Abdominal Exam: Normal Bowel Sounds, Soft. absent: Distended, Tenderness - Extremities Exam Additional comments: thin. right sided weakness. - Neurological Exam Neurological exam: Alert, CN II-XII Intact Additional comments: right hemiplegia - Psychiatric Exam Psychiatric exam: Normal Affect, Normal Mood - Skin Skin Exam: Intact, Normal Color Results - Vital Signs Recent Vital Signs: Last Vital Signs Temp 97.6 F 08/04/16 06:00 Pulse 66 08/04/16 06:00 Resp 18 08/04/16 06:00 BP 99/60 L 08/04/16 06:00 Pulse Ox 100 08/04/16 06:00 - Labs Result Diagrams: 08/04/16 07:00 08/04/16 07:00 Labs: Laboratory Results - last 24 hr 08/03/16 08/03/16 08/03/16 08:13 11:39 21:42 WBC RBC Hgb Hct MCV MCH MCHC RDW Plt Count MPV Sodium Potassium Chloride Carbon Dioxide Anion Gap BUN Creatinine Est GFR ( Amer) Est GFR (Non-Af Amer) POC Glucose (mg/dL) 132 H 173 H 209 H Random Glucose Calcium 08/04/16 08/04/16 08/04/16 07:00 07:00 07:28 WBC 5.7 RBC 2.69 L Hgb 8.0 L Hct 24.7 L MCV 91.8 MCH 29.7 MCHC 32.4 RDW 14.7 H Plt Count 188 MPV 8.6 Sodium 133 Potassium 4.2 Chloride 105 Carbon Dioxide 18 L Anion Gap 14 BUN 84 H Creatinine 3.7 H Est GFR ( Amer) 20 Est GFR (Non-Af Amer) 16 POC Glucose (mg/dL) 133 H Random Glucose 106 Calcium 8.3 L 08/04/16 08/04/16 12:04 16:37 WBC RBC Hgb Hct MCV MCH MCHC RDW Plt Count MPV Sodium Potassium Chloride Carbon Dioxide Anion Gap BUN Creatinine Est GFR ( Amer) Est GFR (Non-Af Amer) POC Glucose (mg/dL) 234 H 143 H Random Glucose Calcium Assessment & Plan - Assessment and Plan (Free Text) Assessment: 71 yo male with positive culture in blood and urine at this time. Patient with SOB, lethargy, and anemia when sent from group home facility to [facility]. Patient started on Vancomycin IV and Cefepime renally dosed at this time. Supportive care. Cultures not finalized yet. History of MRSA in the urine from admission about two months ago. 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 The patient does have multiple medical issues. Thank you for allowing me to participate in the care of the patient, we will follow with you. Please note that I will be away from 08/05 to 08/13, Dr. Smith will be covering for me during this time.
[2016-08-04 16:58] LABS: IRON 67 ug/dL (45-180)
[2016-08-04] MEDS: Vancomycin 1gm in NS 250ml 1 GM/250 ML BAG IVPB SCH (17:00)
[2016-08-04] MEDS: Cefepime 1gm in NS 100ml 1 GM/100 ML BAG IVPB SCH (17:00)
--- NOTE | 2016-08-04 18:10 | PN ---
DATE: 08/04/2016 This 71-year-old male was examined at his bedside and his case was reviewed with his nurse practitioner and case management rn. The patient was seen by Dr. Sheldon because of urine cultures growing gram-negative rods and blood cultures growing gram-positive cocci and he has been empirically started on renally reduced doses of IV vancomycin and Maxipime while waiting ID and sensitivities. The patient is lying in his bed. He remains alert. He is denying any chest pain, but is mildly short of breath, wearing nasal O2 and showing signs of pedal edema. I have stopped his IV fluids. PHYSICAL EXAMINATION: VITAL SIGNS: His temperature was 98, respirations 20, pulse 64 and blood pressure 104/61 with a pulse ox of 100% on nasal O2. HEAD: Normocephalic and atraumatic. EYES: No icterus. EARS: Clear. THROAT: Noninjected. NECK: Supple. HEART: Was S1, S2. LUNGS: Had basilar crackles at the left base. ABDOMEN: Soft. EXTREMITIES: Trace edema. SKIN: Without rash. NEUROLOGIC: Unchanged. Chronic right hemiplegia. VASCULAR: Legs warm to touch. LABORATORY DATA: White count 5700, hemoglobin 8, hematocrit 24.7 and platelets 188,000. PT/INR 0.96. Sodium 133, K 4.2, chloride 105, bicarb 18, BUN 84 and creatinine 3.7. His random blood sugar was 133. His percent saturation is 38% . His iron was 67. IMPRESSION: A 71-year-old male with chronic renal failure stage IV to V, anemia of chronic disease, atherosclerotic heart disease, status post coronary artery bypass graft, status post angioplasty and stents, status post stroke with right hemiplegia, bedbound, insulin-dependent diabetes mellitus, chronic obstructive pulmonary disease, now with sepsis, urinary tract infection, peptic ulcer disease with gastroesophageal reflux disease and marked deconditioning. PLAN: At present is to stop IV fluids and monitor the patient for volume overload. He will continue on Zaroxolyn 5 mg p.o. daily, vancomycin 1 gram IV daily and Maxipime 1 gram IV q. 24 under the direction of Dr. Jb Sheldon from infectious disease. He continues on a multivitamin 1 tablet daily, metoprolol tartrate 12.5 mg p.o. b.i.d., insulin coverage a.c. meals and at bedtime, heparin 5000 units subcu q. 12 and DuoNeb nebulizer pulmonary treatments p.r.n. shortness of breath. He remains on a dysphagia, mechanically-altered finely chopped diet with nectar thick liquids. He will require a basic metabolic panel in the a.m. and serial labs. We need to avoid volume overload and monitor him for clinical uremia and ultimately the patient will need consideration for hemodialysis. Once he is cleared by infectious disease, most likely he can return to [facility] for his long term care though his overall prognosis remains poor. Cindy Be MD cc: [id number] TT: 08/04/2016 18:09:42 Confirmation # [id number] Dictation # [id number] sn MTDD
--- NOTE | 2016-08-04 20:19 | PN ---
DATE: 08/04/2016 The patient was seen and examined on the bedside. Looks comfortable. No nausea, vomiting, or diarrh ea. No fever, no chills. Still a little bit lethargic. Blood cultures are positive. Urine culture is growing gram-negative rods. Blood culture is growing gram-positive cocci and he has been empiric ally started on recently reduced doses of IV vancomycin and Maxipime while waiting for ID and sensiti vities. PHYSICAL EXAMINATION: VITAL SIGNS: Temperature 98, respiratory rate 20, pulse 64, blood pressure 104/61, pulse oximetry 10 0%. HEENT: Head normocephalic, atraumatic. Eyes: PERRLA. Extraocular muscles intact. Conjunctivae are clear. Nose patent. Mucous membranes moist. NECK: Supple. No carotid bruit or thyromegaly. CHEST: Bilaterally symmetrical. HEART: S1, S2 positive. LUNGS: Clear to auscultation. ABDOMEN: Soft, bowel sounds, no organomegaly. EXTREMITIES: No edema, no cyanosis. NEUROLOGIC: The patient is awake, alert, but sometimes getting confused. LABORATORY DATA: White blood cells 5700, hemoglobin 8, hematocrit 24.7, platelets 188,000. Sodium 1 33, BUN 84, creatinine 3.7. Blood sugar 133. ASSESSMENT: The patient is a 71-year-old male with chronic renal failure, stage IV-V, anemia, acute on chronic, atherosclerosis, status post coronary artery disease, status post coronary artery bypass graft, angioplasty and stents, status post stroke with right hemiplegia, bedridden, insulin-dependent diabetes mellitus, history of hydronephrosis, chronic lung disease, sepsis, urinary tract infection, peptic ulcer disease, gastroesophageal reflux disease. PLAN: Continue IV fluid, IV antibiotics. The patient is on Zaroxolyn, vancomycin, Maxipime. ID is on the case. GI and DVT prophylaxis. Will repeat labs. We will follow up. Salima Lin MD cc: [id number] TT: 08/04/2016 20:18:43 Confirmation # [id number] Dictation # [id number] arden
--- NOTE | 2016-08-04 21:52 | PN ---
DATE: 08/04/2016 REFERRING PHYSICIAN: Dr. Lin. SUBJECTIVE: The patient is lying in the bed, head at 45 degrees. Night was unremarkable. Mild coug h. No shortness of breath, no nausea, no vomiting, no diarrhea, no leg pain or leg swelling. OBJECTIVE: GENERAL: No acute distress. VITAL SIGNS: Temp is 98, heart rate is 66, respiratory rate is 18, blood pressure 101/63, pulse ox 9 9% on room air. HEENT: Moist mucous membranes. Crowded airway. Mallampati score is 4. NECK: Supple. No JVD. LUNGS: Has fair airflow with few rhonchi. HEART: S1, S2. ABDOMEN: Soft, nontender. No organomegaly. EXTREMITIES: No edema. NEUROLOGIC: Awake, alert, follows simple commands. MEDICATIONS: He is on DuoNeb q. 4 hours p.r.n., heparin 5000 units subQ q. 12 hours, insulin coverag e, Tradjenta 5 mg daily, metoprolol tartrate 12.5 mg twice a day, cefepime 1 g IV daily, Periactin 4 mg daily. LABORATORY DATA: Shows hemoglobin 8.0, hematocrit 24.7, WBC 5.7, platelet is 188. Sodium 133, potas sium 4.2, chloride 105, bicarbonate 18, BUN 84, creatinine 3.7, glucose 106, calcium is 8.3. Iron 67 . Blood culture has gram-positive cocci and urine has gram-negative. IMPRESSION AND PLAN: Chronic obstructive lung disease, history of cerebrovascular accident, aphasic, renal failure, history of hydronephrosis, ureteral stent, hypertension, hyperlipidemia, diabetes, or opharyngeal dysphagia on modified diet, acute bronchitis. Pulmonary point of view, doing okay. Anti biotics as per infectious diseases. Keep head elevated at 45 degrees. P.r.n. bronchodilator. Aspir ation precautions. On modified diet. Gastric prophylaxis. Sequential compression device to lower e xtremities. Thank you and will follow with you. Adrienne Vallejo MD cc: [id number] TT: 08/04/2016 21:52:03 Confirmation # [id number] Dictation # [id number] rn
--- NOTE | 2016-08-05 03:31 | PCM.URO ---
Urology Progress Note - Objective Lab Results Last 24 Hours: Laboratory Results - last 24 hr 08/03/16 08/03/16 08/03/16 08:13 11:39 21:42 WBC RBC Hgb Hct MCV MCH MCHC RDW Plt Count MPV Sodium Potassium Chloride Carbon Dioxide Anion Gap BUN Creatinine Est GFR ( Amer) Est GFR (Non-Af Amer) POC Glucose (mg/dL) 132 H 173 H 209 H Random Glucose Calcium Iron TIBC % Saturation Ferritin 08/04/16 08/04/16 08/04/16 07:00 07:00 07:28 WBC 5.7 RBC 2.69 L Hgb 8.0 L Hct 24.7 L MCV 91.8 MCH 29.7 MCHC 32.4 RDW 14.7 H Plt Count 188 MPV 8.6 Sodium 133 Potassium 4.2 Chloride 105 Carbon Dioxide 18 L Anion Gap 14 BUN 84 H Creatinine 3.7 H Est GFR ( Amer) 20 Est GFR (Non-Af Amer) 16 POC Glucose (mg/dL) 133 H Random Glucose 106 Calcium 8.3 L Iron TIBC % Saturation Ferritin 08/04/16 08/04/16 08/04/16 12:04 16:37 16:37 WBC RBC Hgb Hct MCV MCH MCHC RDW Plt Count MPV Sodium Potassium Chloride Carbon Dioxide Anion Gap BUN Creatinine Est GFR ( Amer) Est GFR (Non-Af Amer) POC Glucose (mg/dL) 234 H Random Glucose Calcium Iron 67 TIBC 178 L % Saturation 38 Ferritin 627.0 08/04/16 08/04/16 16:37 22:08 WBC RBC Hgb Hct MCV MCH MCHC RDW Plt Count MPV Sodium Potassium Chloride Carbon Dioxide Anion Gap BUN Creatinine Est GFR ( Amer) Est GFR (Non-Af Amer) POC Glucose (mg/dL) 143 H 203 H Random Glucose Calcium Iron TIBC % Saturation Ferritin Intake & Output: Intake & Output 08/04/16 08/04/16 08/05/16 06:59 18:59 06:59 Intake Total 420 Output Total 1000 600 Balance -580 -600 Intake: Oral 420 Output: Urine 1000 600 Urethral (Egan) 1000 600 Other: # Voids Urine, Voided 100 0 # Bowel Movements 0 Vital Signs: Vital Signs - 24 hr 08/04/16 08/04/16 06:00 16:00 Temperature 97.6 F Pulse Rate 66 64 Respiratory 18 19 Rate Blood Pressure 99/60 L 101/63 O2 Sat by Pulse 100 99 Oximetry
[2016-08-05] MEDS: Pantoprazole 40 mg EC Tab PO SCH (07:00)
[2016-08-05] MEDS: Insulin Lispro (humaLOG) LOW Coverage SC SCH ×4 (07:35→22:33)
[2016-08-05 08:52] LABS: HEMATOCRIT 24.1 % (42.0-52.0); MEAN CORPUSCULAR HEMOGLOBIN 30.5 pg (25.0-35.0); MEAN CORPUSCULAR HGB CONC 33.2 g/dl (31.0-37.0); MEAN PLATELET VOLUME 8.5 fl (7.0-11.0); WHITE BLOOD COUNT 5.9 10^3/ul (4.5-11.0)
--- NOTE | 2016-08-05 08:53 | CON ---
DATE: 08/04/2016 HISTORY OF PRESENT ILLNESS: This patient was seen and evaluated earlier. I discussed with the [facility] staff. This 71-year-old patient with a past medical history of coronary artery disease status pos t coronary artery bypass graft, peripheral arterial disease, gastroesophageal reflux disease recently in the hospital, was admitted because of abnormal lab report a low hemoglobin and worsening of the r enal function. The patient has a history of anemia, CVA and right-sided weakness. No history of any bright red blood per rectum or vomiting blood. Other past medical history significant as above. Th e patient was in the hospital last time, has abnormal LFTs, was found to have probably drug induced. The patient also found to have gallstones at that time, CBD was normal. The patient's LFTs continue to improve. This time the concern is mainly because of the anemia and worsening renal function. PAST MEDICAL HISTORY: Significant for status post CVA, COPD, congestive heart failure, diabetes, chr onic kidney disease, history of peptic ulcer disease, bilateral hydronephrosis, benign prostatic hype rtrophy. PAST SURGICAL HISTORY: Has a history of ureteral stone, status post bypass. FAMILY HISTORY: Noncontributory. SOCIAL HISTORY: Ex-smoker. Denies alcohol use. REVIEW OF SYSTEMS: Positive as above. Other systems reviewed. PHYSICAL EXAMINATION: VITAL SIGNS: Temperature is 98.7, blood pressure is 100/65, pulse 76, respirations 20, O2 saturation 100. HEENT: Atraumatic, anicteric. NECK: Supple. HEART: S1, S2 heard. LUNGS: Bilateral air entry present. ABDOMEN: Soft. There is no tenderness. EXTREMITIES: No cyanosis. No clubbing. LABORATORY DATA: Hemoglobin 8.0, hematocrit 24.7, WBC 5.7, platelets 188, MCV is normal at 91. Coag ulation markers negative and LFTs are essentially normalized now. IMPRESSION: This 71-year-old patient admitted with worsening of the renal function and anemia. Ther e is a slight drop in blood count, no obvious melena, bright red blood per rectum or melena. The iro n studies were reviewed, the saturation appears normal. MCV is also normal. The likelihood of anemi a of chronic disease to be considered in the differential diagnosis. Would recommend reticulocyte co unt to follow. RECOMMENDATION: 1. Followup of the hemoglobin and hematocrit. 2. Stool for occult blood. 3. Previous CAT scans were reviewed on this patient. The patient may benefit from the GI workup. We will discuss with the primary physician regarding thi s patient. Thank you very much for allowing us to participate in the care of the patient. Gloria Leonardo MD cc: [id number] TT: 08/05/2016 08:52:17 Confirmation # [id number] Dictation # [id number] jn
[2016-08-05 09:00] LABS: CALCIUM 8.6 mg/dL (8.4-10.5); POTASSIUM 4.4 mmol/L (3.6-5.0)
[2016-08-05] MEDS: Multivitamin Therapeutic Tab PO SCH (09:30)
[2016-08-05] MEDS: Vancomycin 1gm in NS 250ml 1 GM/250 ML BAG IVPB SCH (09:30)
[2016-08-05] MEDS: metOLazone 5 MG TAB PO SCH (09:30)
[2016-08-05] MEDS: [UNRECOGNIZED DRUG - OTHER] PO SCH (09:31)
[2016-08-05] MEDS: CALCIUM CARBONATE PO SCH (09:31)
[2016-08-05] MEDS: VITAMIN D3 PO SCH (09:31)
--- NOTE | 2016-08-05 12:20 | CON ---
DATE: 08/04/2016 REASON FOR CONSULTATION: Voiding dysfunction, retention. The patient is a very pleasant 71-year-old gentleman. History is from chart. The patient is well known to me. We recently had met him a few months back. He had an elevated PSA, urinary retention, voiding dysfun ction. We did prostate biopsies. No malignancy seen. The patient with bilateral hydronephrosis. We had subsequently inserted a stent. The last time I had seen the patient was back in 05/2016. At t hat time, we had placed bilateral stents on the left and the right side and Egan catheter and the pl an is basically every 3 months to change the stents and the catheter. The creatinine had improved somewhat. See below the current labs. The patient is now admitted with UTI/urosepsis. Urology is consulted. See the plan listed below. PAST MEDICAL AND SURGICAL HISTORY: All listed on the chart. The patient of Dr. Armenta. He lives in a halfway. Multiple medical issues are noted. MEDICATIONS: See the chart for further details. The patient is on albuterol, heparin, insulin, metoprolol. He is also now on antibiotics. There is also an ID consultation, see note. Remaining medications are listed on the chart. Otherwise, unremarkable from a urology standpoint. ALLERGIES: He IS ALLERGIC TO SHELLFISH. HE IS ALLERGIC TO POULTRY. HE IS ALLERGIC TO MILK. REVIEW OF SYSTEMS: ____. PHYSICAL EXAMINATION: GENERAL: He is a well-nourished ____ man. VITAL SIGNS: Noted. ABDOMEN: Relatively soft. GENITOURINARY: Catheter is noted. LABORATORY STUDIES: Noteworthy. The BUN and creatinine are noted in the chart. BUN and creatinine are noted to be 84/3.7. I believe this is elevated from above. I need to check previous labs. The hemoglobin and hematocrit are noted to be 8/24.7. The white count is noted. The urine culture was noted to have gram-negative rods. Sensitivities pending. There are positive blood cultures, gram-positive cocci (whether this is real or a contaminant needs t o be determined), but the urine cultures are noted. DIAGNOSES: 1. Renal failure. 2. Bilateral hydronephrosis. 3. Urinary retention, voiding dysfunction. 4. A positive urine culture. ASSESSMENT AND PLAN: This is a very pleasant gentleman, 71 years old. It is a little bit early for changing the stents. They were last changed back in the end of May. However, it is possible that it is time to change them. We will have to discuss with infectious disease the finding in terms of loading the patient with ant ibiotics. An abnormal urine culture in this setting it difficult to evaluate. The white count is noted to be 5.7. However, the cultures being positive is somewhat expected ____ regarding the presence of positive blo od cultures with gram positive, may need to evaluate the possibility for contaminations versus true b lood-borne sepsis. Needs to be evaluated. If we were to change the stents, we would provide anesthesia We will await medical clearance from Dr. Lin. Specifically, currently his hematocrit is 24.7% and most likely will need a transfusion to increase t he hematocrit from an anesthesia standpoint prior to giving him anesthesia. In the meantime: 1. I will order a repeat set of urine cultures: 2. We will order Egan catheter irrigations. 3. We will order for a CT scan. I do want to mention there is a renal ultrasound. That renal ultrasound is comparing to a CAT scan f rom 05/2016. There is no hydronephrosis noted on this is current renal ultrasound. However, we will get a new CT scan to make further observations, ____ CT scan to evaluate the curren t stent status and hydronephrosis now that the patient has been in the hospital and hydrated, etc. So the diagnoses: 1. Urinary retention. 2. Renal failure. 3. Hydronephrosis. 4. Positive urine cultures, possible urosepsis. 5. Possible sepsis. 6. Anemia. PLAN: As follows: From a urology standpoint, we will do the followin. We are going to order a repeat set of urine culture. 2. We are going to order repeat a CT scan of the abdomen and pelvis without IV contrast. 3. We will order Egan catheter irrigations for now and we will consider changing. In the event that infectious disease would recommend early changing of the ureteral stents, that is a t 2 months rather than 3 months, we will plan to do so when cleared from the followin. Cleared from infectious disease standpoint if there are enough antibiotics: 2. That we are not putting in stents into an infected ____. 3. That the patient is medically cleared after possible transfusions and the like and to see if the hematocrit will be above 30, so that he will have both medical and anesthesia clearance. Further plans will follow. Thank you for the urology consultation. Haresh Waters MD cc: [id number] TT: 08/05/2016 12:19:51 Confirmation # [id number] Dictation # [id number] tn
--- NOTE | 2016-08-05 14:58 | CP.PCM.PN ---
Subjective - Date & Time of Evaluation Date of Evaluation: 08/05/16 Time of Evaluation: 13:30 - Subjective Subjective: Covering for Dr. Muhammad Go Comfortable in bed, no fevers overnight, still with cloudy urine. For CT scan of abdomen and pelvis today. Objective - Vital Signs/Intake and Output Vital Signs (last 24 hours): Temp Pulse Resp BP Pulse Ox 97.6 F 96 H 18 96/57 L 100 08/05/16 07:46 08/05/16 07:46 08/05/16 07:46 08/05/16 07:46 08/05/16 07:46 Intake and Output: 08/05/16 08/05/16 06:59 18:59 Intake Total 0 Output Total 600 625 Balance -600 -625 - Medications Medications: Current Medications Acetaminophen (Tylenol 325mg Tab) 650 mg PO Q6H PRN PRN Reason: elevated temp 101 Albuterol/Ipratropium (Duoneb 3 Mg/0.5 Mg (3 Ml) Ud) 3 ml IH [id number] PRN PRN Reason: Shortness of Breath Cyproheptadine HCl (Periactin) 4 mg PO DAILY [facility] Last Admin: 08/05/16 09:30 Dose: 4 mg Heparin Sodium (Porcine) (Heparin) 5,000 units SC Q12 EMILY PRN Reason: Protocol Last Admin: 08/05/16 09:31 Dose: 5,000 units Vancomycin HCl (Vancomycin 1gm) 1 gm in 250 mls @ 167 mls/hr IVPB DAILY EMILY PRN Reason: Protocol Last Admin: 08/05/16 09:30 Dose: 167 mls/hr Cefepime HCl (Maxipime 1gm) 1 gm in 100 mls @ 100 mls/hr IVPB Q24H EMILY PRN Reason: Protocol Last Admin: 08/04/16 17:00 Dose: 100 mls/hr Insulin Human Lispro (Humalog Low) 0 units SC ACHS EMILY PRN Reason: Protocol Last Admin: 08/05/16 07:35 Dose: Not Given Metolazone (Zaroxolyn) 5 mg PO DAILY [facility] Last Admin: 08/05/16 09:30 Dose: 5 mg Metoprolol Tartrate (Lopressor) 12.5 mg PO BID [facility] Last Admin: 08/05/16 09:31 Dose: Not Given Multivitamins (Thera Tab) 1 tab PO DAILY [facility] Last Admin: 08/05/16 09:30 Dose: 1 tab Non-Formulary Medication (Calcium Carbonate/Vitamin D3 [Oyster Shell Calcium Tablet]) 500 mg PO DAILY [facility] Last Admin: 08/05/16 09:31 Dose: Not Given Non-Formulary Medication (Linagliptin [Tradjenta]) 5 mg PO DAILY [facility] Last Admin: 08/05/16 09:32 Dose: Not Given Pantoprazole Sodium (Protonix Ec Tab) 40 mg PO 0630 [facility] Last Admin: 08/04/16 05:43 Dose: 40 mg - Labs Labs: 08/05/16 07:53 08/05/16 07:53 PT 10.4 Seconds (9.9-11.8) 08/02/16 20:00 INR 0.96 (0.93-1.08) 08/02/16 20:00 APTT 27.1 Seconds (23.7-30.8) 08/02/16 20:00 - Constitutional Appears: Non-toxic, No Acute Distress - Head Exam Head Exam: NORMAL INSPECTION - ENT Exam ENT Exam: Mucous Membranes Moist - Neck Exam Neck Exam: absent: Lymphadenopathy, Meningismus - Respiratory Exam Respiratory Exam: Decreased Breath Sounds - Cardiovascular Exam Cardiovascular Exam: +S1, +S2 - GI/Abdominal Exam GI & Abdominal Exam: Soft. absent: Tenderness Assessment and Plan - Assessment and Plan (Free Text) Plan: Assessment Probable urinary tract infection with Proteus mirabilis Coagulase negative staph in blood cx sets, R/O contamination CAD S/P CABG, S/P PCI peripheral vascular disease GERD DM gout bipolar disorder chronic renal failure stage 4 Plan Continue Cefepime (day 2) and patient has been given IV Vancomycin - will check repeat blood cx today will monitor clinically follow up Urology evaluation and recommendations August 04, 2016 71 yo male brought in from [facility] ([facility] for lethargy and low hemoglobin on labs done at the nursing facility. The patient was short of breath as well. He is a poor historian and unable to provide much additional information at this time. PMHx: CAD, PVD, hypercholesterolemia, GERDs, obesity, DM , recent large weight loss episodes, Gout, Bipolar Disorder, Iron Deficiency Anemia, CKD Stage IV. PSHx: CABG 2 vessels, angioplasty Allergies: Chicken, IV Dye, Iodine, Milk, seafood, shellfish Social Hx: No EtOH or illicit drugs. Former tobacco use stopped 30 years ago 71 yo male with positive culture in blood and urine at this time. Patient with SOB, lethargy, and anemia when sent from group home facility to [facility]. Patient started on Vancomycin IV and Cefepime renally dosed at this time. Supportive care. Cultures not finalized yet. History of MRSA in the urine from admission about two months ago. 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 The patient does have multiple medical issues. Thank you for allowing me to participate in the care of the patient, we will follow with you. Please note that I will be away from 08/05 to 08/13, Dr. Smith will be covering for me during this time.
[2016-08-05] MEDS: Cefepime 1gm in NS 100ml 1 GM/100 ML BAG IVPB SCH (16:12)
--- NOTE | 2016-08-05 16:15 | CT ---
PROCEDURE: CT Abdomen and Pelvis without Oral or IV contrast. HISTORY: hydronephrosis COMPARISON: CT abdomen and pelvis without oral or IV contrast performed 06/18/16 TECHNIQUE: Contiguous axial images of the abdomen and pelvis. No oral or IV contrast administered. Coronal and Sagittal reformats generated and reviewed. Radiation dose: Total exam DLP = 790.18 mGy-cm. This CT exam was performed using one or more of the following dose reduction techniques: Automated exposure control, adjustment of the mA and/or kV according to patient size, and/or use of iterative reconstruction technique. FINDINGS: There is limited evaluation of the solid organs without the administration of IV contrast. LOWER THORAX: Right lower lobe infiltrate. Mild left basilar atelectasis. No visible pleural effusion or pneumothorax. LIVER: Unremarkable unenhanced appearance. GALLBLADDER AND BILE DUCTS: Decompressed gallbladder with gallstones. PANCREAS: Pancreatic atrophy. SPLEEN: Unremarkable unenhanced appearance. ADRENALS: Unremarkable unenhanced appearance. KIDNEYS AND URETERS: Fullness of bilateral renal collecting systems. No obstructing calculus identified. Bilateral ureteral stents. BLADDER: Egan catheter within a decompressed urinary bladder. Focus of air within the bladder may be secondary to recent instrumentation. The bladder wall thickening may be exaggerated by under distension, however alternatives including cystitis cannot be excluded. REPRODUCTIVE: The prostate gland measures approximately 4.0 x 4.4 cm. APPENDIX: No secondary signs of acute appendicitis. BOWEL: The stomach is nondistended. Lack of oral contrast limits evaluation for bowel pathology. The bowel loops appear within normal limits of caliber without evidence of intestinal obstruction. Diffuse constipation. Fecalization of some small bowel loops PERITONEUM: No significant free fluid. No definite free air. LYMPH NODES: No bulky lymphadenopathy identified. VASCULATURE: Atherosclerotic calcifications. No aortic aneurysm. BONES: Osseous demineralization. Degenerative changes. L1 vertebral plana. L5 compression fracture deformity. OTHER FINDINGS: None. IMPRESSION: Right lower lobe infiltrate. Mild left basilar atelectasis. Decompressed gallbladder with gallstones. Diffuse constipation. No dilated loops of bowel to suggest obstruction. Fecalization of several small bowel loops, possibly related to stasis. Correlate clinically. Bilateral ureteral stents. Fullness of bilateral renal collecting systems. Egan catheter within a decompressed urinary bladder. Focus of air within the bladder may be secondary to recent instrumentation. The bladder wall thickening may be exaggerated by under distension, however alternatives including cystitis cannot be excluded. Correlate with urinalysis. Additional incidental findings as above.
--- NOTE | 2016-08-05 16:25 | PN ---
DATE: 08/05/2016 REFERRING PHYSICIAN: . SUBJECTIVE: The patient is lying in the bed, head at 45 degrees. was unremarkable. Has some cough, no shortness of breath, no chest pain, no nausea, no vomiting and no diarrhea. He has a Egan catheter. OBJECTIVE: GENERAL: No acute distress. VITAL SIGNS: Temperature is 98, heart rate 96, respiratory rate is 20, blood pressure 96/57 and puls e ox 100% on room air. HEENT: Moist mucous membranes. Crowded airway. NECK: Supple. No JVD. LUNGS: Has a fair airflow with few rhonchi. HEART: S1 and S2. ABDOMEN: Soft and nontender. No organomegaly. EXTREMITIES: There is no edema. NEUROLOGIC: Awake, alert and does follows simple commands. He is aphasic. MEDICATIONS: He is on vitamins 1 tablet daily. Also, he is on DuoNeb q. 4 hours p.r.n., heparin 500 0 units subcu q. 12 hours, insulin coverage, Tradjenta 5 mg daily, metoprolol tartrate 12.5 mg twice a day, cefepime 1 gram IV q. 24 hours, Periactin 4 mg daily. Protonix 40 mg daily, multivitamins laura ly, vancomycin 1 gram IV p.o. daily and Zaroxolyn 5 mg daily. LABORATORY DATA: Shows hemoglobin 8.0, hematocrit 24.1, WBC 5.9 and platelets are 200. Sodium 134, potassium 4.4, chloride 106, bicarbonate 21, BUN 75, creatinine 2.5, glucose is 120 and calcium is 8. 6. Blood cultures ____ with Proteus mirabilis. He had a CT of the abdomen and pelvis done and the report is still pending. IMPRESSION AND PLAN: Chronic obstructive lung disease, cerebrovascular accident, aphasic. seizure, r enal failure, history of hydronephrosis, ureteral stone, hypertension, hyperlipidemia, diabetes, orop haryngeal dysphagia on modified diet, bacteremia and urinary tract infection. Continue antibiotics a s per infectious diseases. Keep head at 45 degree. Bronchodilators. Gastric prophylaxis. SCD to l ower extremity. Thank you. I will follow with you. Adrienne Vallejo MD cc: [id number] TT: 08/05/2016 16:24:33 Confirmation # [id number] Dictation # [id number] sn
--- NOTE | 2016-08-05 18:12 | PN ---
DATE: 08/05/2016 SUBJECTIVE: The patient is seen and examined on the bedside, looks comfortable. No nausea, vomiting , or diarrhea. No hematuria or hematochezia. No swelling of the leg. No chest pain, no palpitation , no headache, no dizziness. PHYSICAL EXAMINATION: VITAL SIGNS: Temperature 97.6, pulse 96, blood pressure 96/57, respiratory rate 18. HEAD: Normocephalic, atraumatic. EYES: PERRLA, extraocular muscles are intact. Conjunctivae clear. Nose patent. Mucous membranes moist. NECK: Supple. No carotid bruit, JVD or thyromegaly. CHEST: Bilaterally symmetrical. HEART: S1, S2 positive. LUNGS: Clear to auscultation. ABDOMEN: Soft. Bowel sounds positive. No organomegaly. EXTREMITIES: No edema, no cyanosis. NEUROLOGIC: The patient is awake, alert and moving all 4 extremities. No focal deficit. MEDICATIONS: Calcium with vitamin D, DuoNeb, heparin, insulin, Trajenta, Lopressor, Maxipime, cyproh eptadine, Protonix, multivitamins, Tylenol, vancomycin, Zaroxolyn. LABORATORY DATA: White blood cells 5.9, hemoglobin 8.0, hematocrit 24.1, platelets 200. Sodium 135, potassium 4.4, BUN 75, creatinine 3.5, glucose 176, 218 and 120. ASSESSMENT AND PLAN: The patient is a 71-year-old male with renal insufficiency, uncontrolled diabet es mellitus, proteinuria, hematuria, urinary tract infection, anemia, right lower lobe pneumonia, dec ompressed gallbladder with gallstones, diffuse constipation, bilateral ureteral stent, positive blood culture and urine at this time. The patient is on vancomycin and cefepime, renally dosed at this ti me. Cultures are not finalized yet. He has right hemiplegia from previous stroke. Urologist is on the case. History of urinary retention, hydronephrosis. GI, DVT prophylaxis. We will follow up. Salima Lin MD cc: [id number] TT: 08/05/2016 18:11:30 Confirmation # [id number] Dictation # [id number] smith
--- NOTE | 2016-08-05 23:32 | PN ---
DATE: 08/05/2016 This 71-year-old male was examined at his bedside. He had just completed an abdominal CAT scan and was wearing nasal O2 and complaining of mild shortness of breath. He denied any chest pain, has had his IV fluids discontinued and is receiving parenteral antibiotics for gram-negative rods in his urine and gram- positive cocci in his blood. PHYSICAL EXAMINATION: VITAL SIGNS: Temperature was 97.6, respirations 18, pulse 96 and blood pressure 101/63 with a pulse ox of 100% on room air. HEAD: Normocephalic, atraumatic. EYES: Show no icterus. EARS: Clear. THROAT: Noninjected. NECK: Supple. HEART: Regular S1, S2. LUNGS: With decreased breath sounds at both bases. ABDOMEN: Soft. EXTREMITIES: Trace edema. SKIN: Without rash. NEUROLOGIC: Unchanged. PSYCHOLOGICAL: Chronic right hemiplegia. VASCULAR: Legs warm to touch. PSYCHOLOGICAL: Alert. LABORATORY DATA: White count 5900, hemoglobin 8, hematocrit 24.1, MCV 92 and platelets 200,000. PT/INR is 0.96. Sodium 135, K 4.4, chloride 106, bicarbonate 21, BUN 75, creatinine 3.5. His random blood sugar was 120. Urine showed Proteus mirabilis sensitive to Maxipime. Blood culture showed Staph aureus. IMPRESSION: A 71-year-old male, chronic renal failure stage IV-V, anemia of chronic disease, atherosclerotic heart disease, status post coronary artery bypass graft, status post stents, chronic obstructive pulmonary disease, old stroke with right hemiplegia and bedridden status, insulin-dependent diabetes mellitus, chronic hypertension, urinary tract infection, history of obstructive uropathy in the past, status post ureteral stents, repeat renal ultrasound showing no evidence of obstruction at present with Staph sepsis and deconditioning. PLAN: At present is to continue medication including Zaroxolyn 5 mg daily, vancomycin 1 gram IV daily, multivitamin 1 tablet daily, Protonix 40 mg daily, Maxipime 1 gram IV daily, metoprolol tartrate 12.5 mg b.i.d., regular low dose insulin coverage a.c. meals and at bedtime, heparin 5000 units subQ q. 12, DuoNeb nebulizers q. 4 hours p.r.n., nasal O2 p.r.n. He continues on a dysphagia modified diet. He remains in isolation. He is receiving bedside therapy. He is being followed by infectious disease. When cleared, he will return to [facility] for his usp care. He may need hemodialysis in his future and his overall prognosis remains poor, but stable at present. Cindy Be MD cc: [id number] TT: 08/05/2016 23:31:44 Confirmation # [id number] Dictation # [id number] mn MTDD
--- NOTE | 2016-08-06 00:13 | PN ---
DATE: 08/05/2016 SUBJECTIVE: This patient was seen and evaluated earlier today. The patient not in acute distress, c omfortable. PHYSICAL EXAMINATION: VITAL SIGNS: Temperature is 97.6, pulse , blood pressure 103/60. HEENT: Atraumatic, anicteric. NECK: Supple. HEART: S1, S2 heard. LUNGS: Bilateral air entry present. ABDOMEN: Soft. There is no tenderness. LABORATORY DATA: Hemoglobin 8, hematocrit 24.1, WBC is 5.9, platelets 200. Chemistry shows BUN 75, creatinine 3.9. IMPRESSION: This 71-year-old patient was admitted because of abnormal labs with worsening of the beatris al function and also anemia. No obvious history of melena or bright red blood per rectum. The patie nt had a CT done without contrast, reported as right lower lobe infiltrate. Constipation. The patie nt has bilateral ureteric stent. The patient has also been followed by the urologist for hydronephro sis. This patient has chronic anemia on the top of it and worsening of the anemia. Would request fo r the hemoglobin and hematocrit. The patient has a urinary tract infection. The patient is planned t o have a stent change. We will discuss with Dr. Lin regarding this, regarding the GI evaluation i n this patient with multiple medical issues. We will check the stool for occult blood. The patient did have saturation done on , which is normal at 38%. 92%. The less likely the GI bleeding, GI blood loss, is accountable for this significant anemia. Probably this is a bulmaro h to month multifactorial etiology. We will check the stool for occult blood. Thank you very much for allowing us to participate in the care of this patient. Gloria Leonardo MD cc: [id number] TT: 08/06/2016 00:12:34 Confirmation # [id number] Dictation # [id number] mn
[2016-08-06] MEDS: Pantoprazole 40 mg EC Tab PO SCH (05:33)
--- NOTE | 2016-08-06 06:31 | PCM.URO ---
Urology Progress Note - Objective Lab Results Last 24 Hours: Laboratory Results - last 24 hr 08/05/16 08/05/16 08/05/16 07:17 07:53 07:53 WBC 5.9 RBC 2.62 L Hgb 8.0 L Hct 24.1 L MCV 92.0 MCH 30.5 MCHC 33.2 RDW 15.0 H Plt Count 200 MPV 8.5 Sodium 135 Potassium 4.4 Chloride 106 Carbon Dioxide 21 Anion Gap 12 BUN 75 H Creatinine 3.5 H Est GFR ( Amer) 21 Est GFR (Non-Af Amer) 17 POC Glucose (mg/dL) 141 H Random Glucose 120 H Calcium 8.6 08/05/16 08/05/16 08/05/16 11:16 16:53 22:14 WBC RBC Hgb Hct MCV MCH MCHC RDW Plt Count MPV Sodium Potassium Chloride Carbon Dioxide Anion Gap BUN Creatinine Est GFR ( Amer) Est GFR (Non-Af Amer) POC Glucose (mg/dL) 218 H 176 H 153 H Random Glucose Calcium Intake & Output: Intake & Output 08/05/16 08/05/16 08/06/16 06:59 18:59 06:59 Intake Total 480 350 Output Total 600 1225 400 Balance -600 -745 -50 Intake: IV 350 Right Hand 350 Oral 480 Output: Urine 600 1225 400 Urethral (Egan) 600 1225 400 Other: # Voids Urine, Voided 0 0 # Bowel Movements 0 Vital Signs: Vital Signs - 24 hr 08/05/16 08/05/16 07:46 17:51 Temperature 97.6 F 97.6 F Pulse Rate 96 H 65 Respiratory 18 19 Rate Blood Pressure 96/57 L 103/60 O2 Sat by Pulse 100 100 Oximetry
[2016-08-06] MEDS: Insulin Lispro (humaLOG) LOW Coverage SC SCH ×4 (08:03→22:19)
[2016-08-06] MEDS: metOLazone 5 MG TAB PO SCH (09:12)
[2016-08-06] MEDS: Vancomycin 1gm in NS 250ml 1 GM/250 ML BAG IVPB SCH (09:13)
[2016-08-06] MEDS: Multivitamin Therapeutic Tab PO SCH (09:13)
[2016-08-06] MEDS: CALCIUM CARBONATE PO SCH (09:14)
[2016-08-06] MEDS: VITAMIN D3 PO SCH (09:14)
[2016-08-06] MEDS: [UNRECOGNIZED DRUG - OTHER] PO SCH (09:14)
[2016-08-06 11:44] LABS: ALB/GLOB RATIO 0.8 (1.1-1.8); BILIRUBIN,TOTAL 0.4 mg/dL (0.2-1.3); CALCIUM 8.8 mg/dL (8.4-10.5); POTASSIUM 4.7 mmol/L (3.6-5.0); TOTAL PROTEIN 7.2 g/dL (5.8-8.3)
[2016-08-06 11:45] LABS: HEMATOCRIT 25.1 % (42.0-52.0); MEAN CORPUSCULAR HEMOGLOBIN 30.4 pg (25.0-35.0); MEAN CORPUSCULAR HGB CONC 32.7 g/dl (31.0-37.0); MEAN PLATELET VOLUME 9.1 fl (7.0-11.0); RED CELL DISTRIBUTION WIDTH 15.3 % (11.5-14.5); WHITE BLOOD COUNT 5.3 10^3/ul (4.5-11.0)
--- NOTE | 2016-08-06 12:17 | CP.PCM.PN ---
Subjective - Date & Time of Evaluation Date of Evaluation: 08/06/16 Time of Evaluation: 11:00 - Subjective Subjective: Comfortable in bed, not in distress. Objective - Vital Signs/Intake and Output Vital Signs (last 24 hours): Temp Pulse Resp BP Pulse Ox 97.4 F L 60 18 102/62 100 08/06/16 07:21 08/06/16 09:11 08/06/16 07:21 08/06/16 09:11 08/06/16 07:21 Intake and Output: 08/06/16 08/06/16 06:59 18:59 Intake Total 350 0 Output Total 400 425 Balance -50 -425 - Medications Medications: Current Medications Acetaminophen (Tylenol 325mg Tab) 650 mg PO Q6H PRN PRN Reason: elevated temp 101 Albuterol/Ipratropium (Duoneb 3 Mg/0.5 Mg (3 Ml) Ud) 3 ml IH [id number] PRN PRN Reason: Shortness of Breath Cyproheptadine HCl (Periactin) 4 mg PO DAILY [facility] Last Admin: 08/06/16 09:13 Dose: 4 mg Heparin Sodium (Porcine) (Heparin) 5,000 units SC Q12 EMILY PRN Reason: Protocol Last Admin: 08/06/16 09:13 Dose: 5,000 units Vancomycin HCl (Vancomycin 1gm) 1 gm in 250 mls @ 167 mls/hr IVPB DAILY EMILY PRN Reason: Protocol Last Admin: 08/06/16 09:13 Dose: 167 mls/hr Cefepime HCl (Maxipime 1gm) 1 gm in 100 mls @ 100 mls/hr IVPB Q24H EMILY PRN Reason: Protocol Last Admin: 08/05/16 16:12 Dose: 100 mls/hr Insulin Human Lispro (Humalog Low) 0 units SC ACHS EMILY PRN Reason: Protocol Last Admin: 08/06/16 08:03 Dose: Not Given Metolazone (Zaroxolyn) 5 mg PO DAILY [facility] Last Admin: 08/06/16 09:12 Dose: 5 mg Metoprolol Tartrate (Lopressor) 12.5 mg PO BID [facility] Last Admin: 08/06/16 09:11 Dose: 12.5 mg Multivitamins (Thera Tab) 1 tab PO DAILY [facility] Last Admin: 08/06/16 09:13 Dose: 1 tab Non-Formulary Medication (Calcium Carbonate/Vitamin D3 [Oyster Shell Calcium Tablet]) 500 mg PO DAILY [facility] Last Admin: 08/06/16 09:14 Dose: Not Given Non-Formulary Medication (Linagliptin [Tradjenta]) 5 mg PO DAILY [facility] Last Admin: 08/06/16 09:14 Dose: Not Given Pantoprazole Sodium (Protonix Ec Tab) 40 mg PO 0630 [facility] Last Admin: 08/06/16 05:33 Dose: 40 mg - Labs Labs: 08/05/16 07:53 08/05/16 07:53 PT 10.4 Seconds (9.9-11.8) 08/02/16 20:00 INR 0.96 (0.93-1.08) 08/02/16 20:00 APTT 27.1 Seconds (23.7-30.8) 08/02/16 20:00 - Constitutional Appears: Non-toxic, No Acute Distress - Head Exam Head Exam: NORMAL INSPECTION - Neck Exam Neck Exam: absent: Meningismus - Respiratory Exam Respiratory Exam: Decreased Breath Sounds - Cardiovascular Exam Cardiovascular Exam: +S1, +S2 - GI/Abdominal Exam GI & Abdominal Exam: Soft. absent: Tenderness Assessment and Plan - Assessment and Plan (Free Text) Plan: Assessment Probable urinary tract infection with Proteus mirabilis Coagulase negative staph in blood cx sets, R/O contamination CAD S/P CABG, S/P PCI peripheral vascular disease GERD DM gout bipolar disorder chronic renal failure stage 4 Plan change Cefepime to Rocephin (day 3) and patient has been given IV Vancomycin - will check repeat blood cx done yesterday will monitor clinically follow up Urology evaluation and recommendations
[2016-08-06] MEDS: cefTRIAXone 2 GM IN NS 2 GM/100 ML BAG IVPB SCH (13:05)
--- NOTE | 2016-08-06 16:28 | PN ---
DATE: 08/06/2016 SUBJECTIVE: The patient is seen and examined on the bedside. No change in the status overnight. No fever, no chills. No nausea, vomiting, or diarrhea. No hematuria or hematochezia. PHYSICAL EXAMINATION: VITAL SIGNS: Temperature 97.4, pulse 60, respiratory rate 18, blood pressure 102/80 , pulse oximetry 100. HEENT: Head normocephalic, atraumatic. Eyes: PERRLA. Extraocular muscles intact. Conjunctivae. Nose patent. Mucous membranes moist. NECK: Supple. No carotid bruit, JVD or thyromegaly. CHEST: Bilaterally symmetrical. HEART: S1, S2 positive. LUNGS: Clear to auscultation. ABDOMEN: Soft. Bowel sounds present. No organomegaly. EXTREMITIES: No edema, no cyanosis. NEUROLOGIC: The patient is awake, alert. MEDICATIONS: DuoNeb, heparin, vancomycin, Maxipime, insulin, Zaroxolyn, Lopressor. LABORATORY DATA: White blood cells 5.9, hemoglobin 8.0, hematocrit 24.1, and platelets 200. Sodium 135, potassium 4.4, BUN 75, creatinine 3.5, glucose 120. ASSESSMENT AND PLAN: The patient is a 71-year-old male with iron deficiency anemia, renal insufficiency, hyperglycemia, has a urinary tract infection with Proteus mirabilis, coagulase-negative staphylococci in the blood culture sets, rule out contamination; coronary artery disease, status post coronary artery bypass graft, status post percutaneous coronary intervention, dementia, peripheral vascular disease, gastroesophageal reflux disease, diabetes mellitus , gouty arthritis, bipolar disorder, chronic renal failure stage IV. The patient is getting antibiotics, cefepime, Rocephin day 3 and the patient has been given IV vancomycin. ID is not sure; they want to check repeat blood cultures that were done yesterday. Will monitor clinically. A urology consult was already put, awaiting for the urologist's input. As soon as infectious disease will decide about the antibiotics, we will discharge the patient back to [place]. Meanwhile, continue present treatment. Gastrointestinal and deep venous thrombosis prophylaxis. Repeat labs. Will followup. Salima Lin MD cc: [id number] TT: 08/06/2016 16:27:07 Confirmation # [id number] Dictation # [id number] dn KAREN
--- NOTE | 2016-08-06 17:08 | PN ---
DATE: 08/06/2016 SUBJECTIVE: This patient was seen and evaluated earlier. The patient is comfortable. PHYSICAL EXAMINATION: VITAL SIGNS: Temperature is 97.4, blood pressure is 102/61, pulse 60, respirations 18. HEENT: Atraumatic, anicteric. NECK: Supple. HEART: S1, S2 heard. LUNGS: Bilateral air entry present. ABDOMEN: Soft. LABORATORY DATA: Hemoglobin 8.2, hematocrit 25.1, WBC 5.3, platelets 220. BUN 60, creatinine 3.2. IMPRESSION: This is a 71-year-old patient admitted from his [facility] with worsening of the diarr hea, anemia and also renal function. A GI consult was requested to evaluate the anemia. The patient was seen in the previous admission for his abnormal LFTs, probably secondary to drug induced; now he is improved. The patient's anemia profile workup was reviewed. The patient's iron saturation was n ormal. The anemia etiology is probably multifactorial. Requested stool for occult blood. Will cont inue to follow up the LFTs. 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 The patient did have a repeat CT with no contrast, was reviewed and found to be constipated with dila alexis loops. The reasonable thing is to start the patient on lactulose. Thank you very much for allowing us to participate in the care of the patient. Gloria Leonardo MD cc: [id number] TT: 08/06/2016 17:07:18 Confirmation # [id number] Dictation # [id number] dn
[2016-08-06 17:51] VITALS: RESP 19
--- NOTE | 2016-08-06 22:33 | PN ---
DATE: 08/06/2016 REFERRING PHYSICIAN: Dr. Lin. SUBJECTIVE: The patient is lying in the bed, head at 45 degrees. Night was unremarkable. Has some cough. No shortness of breath, no nausea, no vomiting, no diarrhea. No leg pain or leg swelling. OBJECTIVE: GENERAL: No acute distress. VITAL SIGNS: Temp is 98, heart rate is 58, respiratory rate is 20, blood pressure 105/64, pulse ox 9 9% on 2 liters nasal cannula. HEENT: Moist mucous membranes. Crowded airway. Mallampati score is 4. NECK: Supple. No JVD. LUNGS: Have fair airflow with a few rhonchi. HEART: S1, S2. ABDOMEN: Soft, nontender. No organomegaly. EXTREMITIES: There is no edema. NEUROLOGIC: Awake, alert, follows simple command but aphasic. MEDICATIONS: Show DuoNeb is q. 4 hours p.r.n., Lactulose 20 grams twice a day, heparin 5000 units celis bQ q. 12 hours, Tradjenta 5 mg daily, metoprolol tartrate 12.5 mg twice a day, Periactin 4 mg daily. Protonix 40 mg daily, Rocephin 2 g IV daily, multivitamins daily, vancomycin 1 g IV q. daily, Zaroxo lionel 5 mg daily. LABORATORY DATA: Shows hemoglobin 8.2, hematocrit 25.1, WBC 5.3, platelet is 229. Sodium ____, pota ssium 4.7, chloride 106, bicarbonate 21, BUN 69, creatinine 3.2, glucose 216, calcium 8.3. AST 16, A LT 29, alk phos is 75. Blood cultures have coag-negative staph and the urine has Proteus mirabilis. IMPRESSION AND PLAN: Chronic obstructive lung disease, cerebrovascular accident, seizure disorder, r enal failure, history of hydronephrosis, ureteral stone, hypertension, hyperlipidemia, diabetes, orop haryngeal dysphagia, bacteremia. Pulmonary point of view, doing okay. Continue bronchodilator. Braeden p head at 45 degrees. Aspiration precaution. Continue modified diet. Antibiotics as per infectious diseases. Thank you, and will follow with you. Adrienne Vallejo MD cc: [id number] TT: 08/06/2016 22:32:51 Confirmation # [id number] Dictation # [id number] mn
--- NOTE | 2016-08-06 22:51 | PN ---
DATE: 08/06/2016 This 71-year-old male was examined at bedside and his case was reviewed with himself and his nurse Juany Ley. The patient was wearing nasal O2, mildly short of breath, but denying any chest pain o r cough or hemoptysis or hematemesis. PHYSICAL EXAMINATION: VITAL SIGNS: Temperature 97.4, respirations 19, pulse 58, blood pressure 105/64 with a pulse ox of 9 9%. HEAD: Normocephalic, atraumatic. EYES: No icterus. EARS: Clear. THROAT: Noninjected. NECK: Supple. HEART: S1, S2. LUNGS: With decreased breath sounds at the bases. ABDOMEN: Soft. EXTREMITIES: No edema. SKIN: Without rash. NEUROLOGIC: Intact. PSYCHOLOGICAL: Alert. VASCULAR: Legs warm to touch. LABORATORY DATA: White count 5300, hemoglobin 8.2, hematocrit 25.1, platelets 229,000. Sodium 135, K 4.7, chloride 106, bicarbonate 21, BUN 69, creatinine 3.2, estimated GFR 19 mL per minute. Random blood sugar 177. All liver function testing was normal, including bilirubin 0.4, AST 16, ALT 29, and alkaline phosphatase 75. Urine culture showed Proteus mirabilis, sensitive to Rocephin and blood cu lture showed Staph aureus, sensitive to vancomycin. IMPRESSION: A 71-year-old male, chronic renal failure stage IV, anemia of chronic disease, chronic h ypertension, chronic obstructive pulmonary disease, old stroke, right hemiplegia, insulin-dependent d iabetes mellitus, chronic hypertension, peptic ulcer disease with gastroesophageal reflux disease, ur inary tract infection, blood sepsis. PLAN: At present is to continue Zaroxolyn 5 mg p.o. daily, vancomycin 1 gram IV q.24, multivitamin 1 tablet daily, ceftriaxone 2 grams IV daily under the direction of infectious disease, Protonix 40 mg p.o. daily, metoprolol tartrate 12.5 mg b.i.d., insulin coverage a.c. meals and at bedtime, heparin subQ 5000 units q.12, DuoNeb nebulizers q.4 hours, Os-Shine with vitamin D daily. The patient continue s on a dysphagia diet. He is receiving bedside physical therapy. Ultimate plan will be to return to [facility] for his penitentiary care. Overall, prognosis remains poor. Cindy Be MD cc: [phone] TT: 08/06/2016 22:51:00 Confirmation # [id number] Dictation # [id number] tn
[2016-08-07 07:48] VITALS: BP 112/64; PULSE 61; TEMP 97.6; O2SAT 100
[2016-08-07] MEDS: Insulin Lispro (humaLOG) LOW Coverage SC SCH ×2 (08:09→12:18)
[2016-08-07] MEDS: Multivitamin Therapeutic Tab PO SCH (09:35)
[2016-08-07] MEDS: cefTRIAXone 2 GM IN NS 2 GM/100 ML BAG IVPB SCH (09:35)
[2016-08-07] MEDS: metOLazone 5 MG TAB PO SCH (09:35)
[2016-08-07] MEDS: CALCIUM CARBONATE PO SCH (10:31)
[2016-08-07] MEDS: VITAMIN D3 PO SCH (10:31)
[2016-08-07] MEDS: [UNRECOGNIZED DRUG - OTHER] PO SCH (10:31)
--- NOTE | 2016-08-07 12:43 | PN ---
DATE: 08/07/2016 This 71-year-old male was examined at his bedside. His case was reviewed with his nurse, Cindy Nguyen. The patient was lying in bed but his nasal O2 apparatus was lying on the floor. The patient was complaining of mild shortness of breath. I spoke with the nurse. She will be setting up a new O2 apparatus. The patient remains hospitalized with multiple medical problems including chronic renal failure stage IV, anemia of chronic disease, chronic obstructive pulmonary disease, bedridden status, status post stroke with right hemiplegia, insulin-dependent diabetes mellitus, chronic hypertension, peptic ulcer disease with GERD and now with urinary tract infection with Proteus mirabilis and blood sepsis with Staph aureus. PHYSICAL EXAMINATION: VITAL SIGNS: At present, temperature is 97.6, respirations 19, pulse 61, and blood pressure 112/64. His previous pulse ox was 100% on 2 liters nasal O2. HEAD: Normocephalic, atraumatic. EYES: No icterus. EARS: Clear. THROAT: Noninjected. NECK: Supple. HEART: S1, S2. LUNGS: Without wheezing. ABDOMEN: Soft. EXTREMITIES: No edema. SKIN: Without rash. NEUROLOGIC: Unchanged. He has a dense right hemiplegia, chronic. PSYCHOLOGICAL: Alert. VASCULAR: Legs warm to touch. LABORATORY DATA: His white count is 5300, hemoglobin 8.2, hematocrit 25.1, platelets 229,000. Sodium 135, K 4.7, chloride 106, bicarb 21, BUN 69, creatinine 3.2. Estimated GFR 19 mL per minute. Random blood sugar was 186, and all liver function testing was normal including bilirubin 0.4, AST 16, ALT 29, and alk phos 75. IMPRESSION: A 71-year-old male with a urinary tract infection, chronic renal failure stage IV, Staphylococcus aureus sepsis, chronic obstructive pulmonary disease, old stroke, dense right hemiplegia, bedridden status, insulin- dependent diabetes mellitus, chronic hypertension, obstipation and deconditioning. PLAN: At present is to continue Zaroxolyn 5 mg p.o. daily, a multivitamin 1 tablet daily, Rocephin and vancomycin as outlined and dosed by infectious disease wellness consultant, metoprolol tartrate 12.5 mg p.o. b.i.d., insulin coverage a.c. meals and at bedtime, heparin 5000 units subQ q. 12, DuoNeb nebulizers q. 4 hours, nasal O2 p.r.n., and lactulose 30 mL b.i.d. The patient continues on a dysphagia diet, isolation. When medically cleared, will be returning to [facility] for his [facility] care where his overall prognosis remains poor. Cindy Be MD cc: [phone] TT: 08/07/2016 12:43:11 Confirmation # [id number] Dictation # [id number] jn MTDD
--- NOTE | 2016-08-07 13:48 | PQF SEPSIS ---
This form is a permanent part of the medical record Clarification of your documentation is requested to better reflect the severity of illness and intensity of treatment of your patient. Indicators present ID notes probable Proteus UTI, Coagulase neg staph in initial blood culture, r/o contamination. Repeat cultures- neg. Has Sepsis been ruled out? [] Temp < 96.8 or > 100.4 [] WBC count > 12,000/mm3 or <000/mm3 or 10% immature neutrophils [] Heart Rate > 90 [] Respiratory Rate > 20 [] Fever or hypothermia [] Chills [] Positive blood cultures [] Hypotension [] Metabolic acidosis (Elevated lactate level, anion gap or reduced blood pH) [] Acute confusion /Altered Mental Status [] Shock [] Other: [] Location in the medical record that reflects the above clinical findings: [] Repeat blood culture, ID notes Treatment Provided: [] PHYSICIAN'S RESPONSE Based on your medical judgment of the clinical indicators outlined above, are you treating this patient for a known or suspected: [] Sepsis / Septicemia Please specify organism if known [] [] SIRS (Systemic Inflammatory Response Syndrome) [] Severe Sepsis (Sepsis with Associated Organ Dysfunction) [] Fever of Unknown Origin [] Other, please indicate: [] [] If Unable to Determine, please check the box, sign and date. Present On Admission (POA) Indicator: [] Present at the time of admission [] Not present at the time of admission [] Clinically Undetermined In responding to this query, please exercise your independent professional judgment. The fact that a question is asked does not imply that any particular answer is desired or expected. Thank you for your clarification on this documentation. If you have any questions please call:[ ] * Thank you, [ ]Angelita Sanchez RN CDS data librarian KAREN
[2016-08-07] MEDS ORDERED: Lidocaine 2% Inj (20ml) ONE (14:28)
--- NOTE | 2016-08-07 15:33 | PN ---
DATE: 08/07/2016 Seen and examined at the bedside earlier today. No acute overnight events are reported. No reports of overt GI bleed. VITAL SIGNS: Temperature is 97.6, blood pressure 112/64, pulse 61, respirations 19, 100% O2 saturati on. LABORATORIES NOTED: POC glucose at 186. PHYSICAL EXAMINATION: HEENT: Sclera is anicteric. NECK: Supple. CARDIAC: S1, S2. LUNG SOUNDS: With decreased breath sounds, but good air entry. No rales or wheeze. ABDOMEN: With bowel sounds, soft, nontender. ASSESSMENT: A 71-year-old male with history of cerebrovascular accident, coronary artery disease sta tus post percutaneous transluminal coronary angioplasty and coronary artery bypass graft. The patien t admitted with worsening diarrhea, anemia and renal functions. Etiology may be multifactorial. Pen ding stool for guaiac. He does have history of abnormal liver function tests, which was likely secon maxine to medications, but is now improved. We will continue to follow up H and H. Hopefully we can g et a stool for guaiac. The patient also has obstructive uropathy and status post ureteral stent. He also is constipated. The patient was started on lactulose. Hopefully, he will have a bowel movemen t. On IV antibiotics of Rocephin. He is on deep venous thrombosis prophylaxis, heparin. Continue P rotonix 40. We will continue to monitor the patient. The patient was seen and case discussed with Dr. Leonardo. Liliana FREDERICK cc: [phone] TT: 08/07/2016 15:31:58 Confirmation # [id number] Dictation # [id number] en
--- NOTE | 2016-08-07 18:29 | CP.PCM.PN ---
Subjective - Date & Time of Evaluation Date of Evaluation: 08/07/16 Time of Evaluation: 11:40 - Subjective Subjective: Comfortable, afebrile, not in distress. Objective - Vital Signs/Intake and Output Vital Signs (last 24 hours): Temp Pulse Resp BP Pulse Ox 97.6 F 61 19 112/64 100 08/07/16 07:47 08/07/16 07:47 08/07/16 07:47 08/07/16 07:47 08/07/16 07:47 Intake and Output: 08/07/16 08/07/16 06:59 18:59 Intake Total 0 Output Total 500 450 Balance -500 -450 - Medications Medications: Current Medications Acetaminophen (Tylenol 325mg Tab) 650 mg PO Q6H PRN PRN Reason: elevated temp 101 Albuterol/Ipratropium (Duoneb 3 Mg/0.5 Mg (3 Ml) Ud) 3 ml IH [id number] PRN PRN Reason: Shortness of Breath Cyproheptadine HCl (Periactin) 4 mg PO DAILY [facility] Last Admin: 08/06/16 09:13 Dose: 4 mg Heparin Sodium (Porcine) (Heparin) 5,000 units SC Q12 EMILY PRN Reason: Protocol Last Admin: 08/06/16 21:54 Dose: 5,000 units Ceftriaxone Sodium (Rocephin 2 Gm Ivpb) 2 gm in 100 mls @ 100 mls/hr IVPB DAILY EMILY PRN Reason: Protocol Last Admin: 08/06/16 13:05 Dose: 100 mls/hr Insulin Human Lispro (Humalog Low) 0 units SC ACHS EMILY PRN Reason: Protocol Last Admin: 08/07/16 08:09 Dose: 1 units Lactulose (Enulose) 20 gm PO BID [facility] Last Admin: 08/06/16 17:35 Dose: 20 gm Metolazone (Zaroxolyn) 5 mg PO DAILY [facility] Last Admin: 08/06/16 09:12 Dose: 5 mg Metoprolol Tartrate (Lopressor) 12.5 mg PO BID [facility] Last Admin: 08/06/16 17:35 Dose: 12.5 mg Multivitamins (Thera Tab) 1 tab PO DAILY [facility] Last Admin: 08/06/16 09:13 Dose: 1 tab Non-Formulary Medication (Calcium Carbonate/Vitamin D3 [Oyster Shell Calcium Tablet]) 500 mg PO DAILY [facility] Last Admin: 08/06/16 09:14 Dose: Not Given Non-Formulary Medication (Linagliptin [Tradjenta]) 5 mg PO DAILY [facility] Last Admin: 08/06/16 09:14 Dose: Not Given Pantoprazole Sodium (Protonix Ec Tab) 40 mg PO 0630 [facility] Last Admin: 08/06/16 05:33 Dose: 40 mg - Labs Labs: 08/06/16 11:20 08/06/16 11:20 PT 10.4 Seconds (9.9-11.8) 08/02/16 20:00 INR 0.96 (0.93-1.08) 08/02/16 20:00 APTT 27.1 Seconds (23.7-30.8) 08/02/16 20:00 - Constitutional Appears: Non-toxic, No Acute Distress - Head Exam Head Exam: NORMAL INSPECTION - Neck Exam Neck Exam: absent: Meningismus - Respiratory Exam Respiratory Exam: Decreased Breath Sounds - Cardiovascular Exam Cardiovascular Exam: +S1, +S2 - GI/Abdominal Exam GI & Abdominal Exam: Soft. absent: Tenderness Assessment and Plan - Assessment and Plan (Free Text) Plan: Assessment Probable urinary tract infection with Proteus mirabilis in a patient with bilateral ureteral stents (complicated UTI) Coagulase negative staph in blood cx sets, R/O contamination CAD S/P CABG, S/P PCI peripheral vascular disease GERD DM gout bipolar disorder chronic renal failure stage 4 Plan continue Rocephin (day 4) to complete another 10 days; Coagulase negative staph did not show in the urine and therefore ureter stents are unlikely the source of the staph in the blood - more likely contamination
--- NOTE | 2016-08-07 20:33 | PN ---
DATE: 08/07/2016 This patient was seen and evaluated earlier today. Hemoglobin appears to be stable. No obvious blee ding. The patient at the time of examination plan to be discharged back to the long-term. We nee d to discuss with the patient and family. We will discuss with the primary physician before doing a GI workup. The patient was admitted at this time with the worsening of the renal function, anemia; h owever, the anemia seems to be stable. The CT was reviewed. constipation, no obvious mass les ion noticed. Gloria Leonardo MD cc: [phone] TT: 08/07/2016 20:32:28 Confirmation # [id number] Dictation # [id number] mn
--- NOTE | 2016-08-09 15:49 | VASCULAR ---
PROCEDURE: Ultrasound and fluoroscopically placed left upper extremity PICC line. HISTORY: Sepsis. Long-term IV antibiotics. Needs PICC line. PHYSICIAN(S): Marcus Rodríguez MD. TECHNIQUE: The relative risks and indications of the procedure were explained to the patient's family and consent obtained. The patient was placed supine on the arteriogram table and the left arm prepped and draped in the usual sterile fashion. A tourniquet was applied to the left axilla. 1% Xylocaine was used to anesthetize the skin and soft tissues at the puncture site above the elbow. The left basilic vein was punctured under direct ultrasound guidance with a micropuncture set. A 0.018 guidewire was advanced centrally and used to measure the length to the SVC/RA junction. A 5 [place] single-lumen PICC line 43 cm long was advanced to the SVC/RA junction. The catheter was flushed and secured. The patient tolerated the procedure well. IMPRESSION: 1. Ultrasound and fluoroscopically placed left upper extremity PICC line. A 5 [place] single-lumen PICC line 43 cm long was advanced to the SVC/RA junction.
== END 2016-08-07 16:55 | DRG 872 ==
LOC: ED 18:43 → ERH 21:38 → 3RNO 08-03 01:09
PROVIDERS: ADMIT Internal Medicine; ATTEND Internal Medicine
PROC: 02HV33Z Insertion of Infusion Device into Superior Vena Cava, Percutaneous Approach (ICD-10-PCS; principal; 2016-08-07)
PROC: B548ZZA Ultrasonography of Superior Vena Cava, Guidance (ICD-10-PCS; 2016-08-07)
PROC: B51NZZA Fluoroscopy of Left Upper Extremity Veins, Guidance (ICD-10-PCS; 2016-08-07)
DX: A41.2 Sepsis due to unspecified staphylococcus (principal); I13.2 Hypertensive heart and chronic kidney disease with heart failure and with stage 5 chronic kidney disease, or end stage renal disease; N18.5 Chronic kidney disease, stage 5; E10.22 Type 1 diabetes mellitus with diabetic chronic kidney disease; J44.0 Chronic obstructive pulmonary disease with (acute) lower respiratory infection; R13.12 Dysphagia, oropharyngeal phase; F03.90 Unspecified dementia, unspecified severity, without behavioral disturbance, psychotic disturbance, mood disturbance, and anxiety; N39.0 Urinary tract infection, site not specified; I69.351 Hemiplegia and hemiparesis following cerebral infarction affecting right dominant side; N13.30 Unspecified hydronephrosis; I50.9 Heart failure, unspecified; E10.65 Type 1 diabetes mellitus with hyperglycemia; D63.8 Anemia in other chronic diseases classified elsewhere; B96.4 Proteus (mirabilis) (morganii) as the cause of diseases classified elsewhere; D50.9 Iron deficiency anemia, unspecified; E66.9 Obesity, unspecified; E78.00 Pure hypercholesterolemia, unspecified; E78.5 Hyperlipidemia, unspecified; E83.41 Hypermagnesemia; E86.0 Dehydration; I69.320 Aphasia following cerebral infarction; K21.9 Gastro-esophageal reflux disease without esophagitis; K27.9 Peptic ulcer, site unspecified, unspecified as acute or chronic, without hemorrhage or perforation; K59.00 Constipation, unspecified; K76.0 Fatty (change of) liver, not elsewhere classified; K80.20 Calculus of gallbladder without cholecystitis without obstruction; M10.9 Gout, unspecified; N31.9 Neuromuscular dysfunction of bladder, unspecified; N40.0 Benign prostatic hyperplasia without lower urinary tract symptoms; Z74.01 Bed confinement status; Z82.49 Family history of ischemic heart disease and other diseases of the circulatory system; Z83.3 Family history of diabetes mellitus; Z86.14 Personal history of Methicillin resistant Staphylococcus aureus infection; E87.6 Hypokalemia; F31.9 Bipolar disorder, unspecified; G40.909 Epilepsy, unspecified, not intractable, without status epilepticus; G47.33 Obstructive sleep apnea (adult) (pediatric); Z79.4 Long term (current) use of insulin; Z87.442 Personal history of urinary calculi; Z87.891 Personal history of nicotine dependence; Z95.1 Presence of aortocoronary bypass graft; Z95.5 Presence of coronary angioplasty implant and graft; R32 Unspecified urinary incontinence; F32.89 Other specified depressive episodes; Z91.011 Allergy to milk products; Z91.013 Allergy to seafood; Z91.018 Allergy to other foods; R40.2412 Glasgow coma scale score 13-15, at arrival to emergency department; I73.9 Peripheral vascular disease, unspecified; I25.119 Atherosclerotic heart disease of native coronary artery with unspecified angina pectoris; R53.81 Other malaise; J20.9 Acute bronchitis, unspecified